=== PATIENT | male | born 1950 | race Caucasian/White ===

== ENCOUNTER 2023-08-07 08:06 | Outpatient (OUT) | payer MEDICARE, SELFPAY ==
[2023-08-07 08:52] LABS: Estimated Average Glucose 166 mg/dL; Glycohemoglobin A1C 7.4 % (4.5-6.2)
[2023-08-07 09:02] LABS: Basophils Absolute Auto 0.1 10^3/uL (0.0-0.1); Basophils Percent Auto 1.2 % (0.2-2.0); Eosinophils Absolute Auto 0.2 10^3/uL (0.0-0.7); Eosinophils Percent Auto 3.2 % (0.9-7.0); Hematocrit 44.9 % (42.0-54.0); Hemoglobin 14.8 g/dL (14.0-18.0); Immature Granulocytes Abs Auto 0.02 10^3/uL (0.00-0.03); Immature Granulocytes Pct Auto 0.3 % (0.0-0.5); Lymphocytes Absolute Auto 2.1 10^3/uL (1.2-3.8); Lymphocytes Percent Auto 31.4 % (20.5-60.0); Mean Corpuscular Hemoglobin 29.7 pg (25.9-34.0); Mean Platelet Volume 10.1 fL (9.5-13.5); Monocytes Absolute Auto 0.7 10^3/uL (0.3-0.8); Monocytes Percent Auto 10.6 % (1.7-12.0); Neutrophils Absolute Auto 3.5 10^3/uL (1.4-6.5); Neutrophils Percent Auto 53.3 % (43.0-75.0); Platelet Count 254 10^3/uL (150-450); Red Blood Count 4.99 10^6/uL (4.70-6.10); Red Cell Distribution Width 13.8 % (11.0-15.0); White Blood Count 6.5 10^3/uL (4.0-11.0)
[2023-08-07 09:48] LABS: Alanine Aminotransferase 30 U/L (16-63); Albumin Level 3.7 g/dL (3.4-5.0); Alkaline Phosphatase 80 U/L (46-116); Anion Gap 12.9; Aspartate Amino Transferase 8 U/L (15-37); BUN Creatinine Ratio 19.8; Bilirubin Total 0.5 mg/dL (0.2-1.0); Calcium 8.8 mg/dL (8.5-10.1); Carbon Dioxide 28.2 mmol/L (21.0-32.0); Chloride 102 mmol/L (98-107); Chol HDL Ratio 5.3; Cholesterol 217 mg/dL (<=200); Estimated GFR (African America >60 (>=60); Estimated GFR (Non-African Ame >60 (>=60); Free T3 2.98 pg/mL (2.18-3.98); Globulin 3.8 g/dL; Glucose 157 mg/dL (74-106); HDL Cholesterol 41 mg/dL (40-60); Potassium 4.1 mmol/L (3.5-5.1); Prostate Specific Antigen Scrn 0.79 ng/mL (<=4.00); Sodium 139 mmol/L (136-145); Thyroid Stimulating Hormone 1.725 uIU/mL (0.358-3.740); Total Protein 7.5 g/dL (6.4-8.2); Triglycerides 389 mg/dL (<=150); VLDL CHOLESTEROL 77.8 mg/dL
== END 2023-08-07 08:07 | disposition home or self-care (01) ==
LOC: LAB 08:10
PROVIDERS: PCP Family Medicine; Visit Provider Family Medicine
DX: E78.1 Pure hyperglyceridemia (principal); E11.9 Type 2 diabetes mellitus without complications; I10 Essential (primary) hypertension; R53.83 Other fatigue
CPT/HCPCS: 36415; 80053; 80061; 83036; 84436; 84443; 84481; 85025; G0103

== ENCOUNTER 2024-08-31 08:27 | Outpatient (OUT) | payer OTHER, SELFPAY ==
[2024-08-31 09:13] LABS: Basophils Absolute Auto 0.1 10^3/uL (0.0-0.1); Eosinophils Absolute Auto 0.1 10^3/uL (0.0-0.7); Eosinophils Percent Auto 2.1 % (0.9-7.0); Hematocrit 44.9 % (42.0-54.0); Immature Granulocytes Abs Auto 0.03 10^3/uL (0.00-0.03); Immature Granulocytes Pct Auto 0.5 % (0.0-0.5); Lymphocytes Absolute Auto 1.6 10^3/uL (1.2-3.8); Lymphocytes Percent Auto 24.8 % (20.5-60.0); Mean Corpuscular HGB Conc 33.4 g/dL (29.9-35.2); Mean Corpuscular Hemoglobin 29.8 pg (25.9-34.0); Mean Corpuscular Volume 89.1 fL (80.0-94.0); Mean Platelet Volume 10.1 fL (9.5-13.5); Monocytes Absolute Auto 0.6 10^3/uL (0.3-0.8); Monocytes Percent Auto 9.9 % (1.7-12.0); Neutrophils Absolute Auto 3.9 10^3/uL (1.4-6.5); Neutrophils Percent Auto 61.7 % (43.0-75.0); Platelet Count 258 10^3/uL (150-450); Red Blood Count 5.04 10^6/uL (4.70-6.10); Red Cell Distribution Width 13.3 % (11.0-15.0); White Blood Count 6.3 10^3/uL (4.0-11.0)
[2024-08-31 09:53] LABS: Alanine Aminotransferase 24 U/L (16-63); Albumin Globulin Ratio 0.9; Albumin Level 3.4 g/dL (3.4-5.0); Alkaline Phosphatase 84 U/L (46-116); Anion Gap 13.8; Aspartate Amino Transferase 11 U/L (15-37); BUN Creatinine Ratio 15.5; Bilirubin Total 0.5 mg/dL (0.2-1.0); Calcium 8.9 mg/dL (8.5-10.1); Carbon Dioxide 27.5 mmol/L (21.0-32.0); Chloride 103 mmol/L (98-107); Cholesterol 222 mg/dL (<=200); Estimated GFR (African America >60 (>=60 mL/min/1.73m^2); Estimated GFR (Non-African Ame >60 (>=60 mL/min/1.73m^2); Free T3 2.22 pg/mL (2.18-3.98); Globulin 3.7 g/dL; Glucose 190 mg/dL (74-106); HDL Cholesterol 44 mg/dL (40-60); Potassium 4.3 mmol/L (3.5-5.1); Sodium 140 mmol/L (136-145); Thyroid Stimulating Hormone 2.284 uIU/mL (0.358-3.740); Total Protein 7.1 g/dL (6.4-8.2); Triglycerides 345 mg/dL (<=150)
[2024-08-31 09:59] LABS: Prostate Specific Antigen Scrn 0.56 ng/mL (<=4.00)
[2024-08-31 11:13] LABS: Estimated Average Glucose 203 mg/dL; Glycohemoglobin A1C 8.7 % (4.5-6.2)
== END 2024-08-31 08:28 | disposition home or self-care (01) ==
LOC: LAB 08:31
PROVIDERS: PCP Family Medicine; Visit Provider Family Medicine
DX: E78.1 Pure hyperglyceridemia (principal); I10 Essential (primary) hypertension; K21.9 Gastro-esophageal reflux disease without esophagitis; E11.9 Type 2 diabetes mellitus without complications; E78.5 Hyperlipidemia, unspecified; Z12.12 Encounter for screening for malignant neoplasm of rectum; Z12.5 Encounter for screening for malignant neoplasm of prostate
CPT/HCPCS: 36415; 80053; 80061; 83036; 84436; 84443; 84481; 85025; G0103

== ENCOUNTER 2025-07-13 07:34 | Outpatient (OUT) | payer OTHER, SELFPAY ==
--- OUTSIDE RECORDS SUMMARY | 2025-07-13 07:41 | XMS_ITS | CCD ---
Author Organization [facility] Care Team Providers Care Director Motion Picture Name Role Phone Fernie Velez Primary Care Physician Eric SOLIS Attending Unavailable NILL, Eric Mcfadden Attending Unavailable NILL, Eric Mcfadden Attending Unavailable Fernie Velez Referring Unavailable Eric SOLIS Attending Unavailable NATEY ., DR ENCISO Primary Care Unavailable DIAB ., KAYLI Admitting Unavailable DIAB ., KAYLI Attending Unavailable ROCK RAMESH Consulting Unavailable BARRINGTON HENDERSON Consulting Unavailable HOY ., DR ENCISO Admitting Unavailable HOY ., DR ENCISO Attending Unavailable HOY ., DR ENCISO Consulting Unavailable HOY ., DR ENCISO Admitting Unavailable HOY ., DR ENCISO Attending Unavailable HOY ., DR ENCISO Consulting Unavailable Allergies Allergy Classification Reported Allergen(s) Allergy Type Date of Onset Reaction(s) Facility (1 source) No Known Medication Allergies; Translations: [No Known Medication Allergies] Propensity to adverse reactions (disorder) [facility] Repository Medications Current Medications Medication Drug Class(es) Dates Sig (Normalized) Sig (Original) aspirin 81 mg chewable tablet (3 sources) Platelet Aggregation Inhibitor, Nonsteroidal Anti-inflammatory Drug Start: 11-09-2022 aspirin 81 mg Chew Tab 81 mg = 1 tab(s), Chewed, Daily, Refills(s) 0 Start Date: 11/09/22 Status: Ordered colesevelam hydrochloride 625 mg oral tablet (3 sources) Bile Acid Sequestrant Start: 11-09-2022 take 1 tablet by mouth four times daily Welchol 625 mg Tab 625 mg = 1 tab(s), Oral, QID, Refills(s) 0 Start Date: 11/09/22 Status: Ordered dapagliflozin 5 mg oral tablet (3 sources) Sodium-Glucose Cotransporter 2 Inhibitor Start: 11-09-2022 take 1 tablet by mouth once daily Farxiga 5 mg oral tablet 5 mg = 1 tab(s), Oral, Daily, Refills(s) 0 Start Date: 11/09/22 Status: Ordered glimepiride 4 mg oral tablet (3 sources) Sulfonylurea Start: 11-09-2022 take 1 tablet by mouth once daily glimepiride 4 mg Tab 4 mg = 1 tab(s), Oral, Daily, Refills(s) 0 Start Date: 11/09/22 Status: Ordered irbesartan 300 mg oral tablet (3 sources) Angiotensin 2 Receptor Hawk Start: 11-09-2022 take 1 tablet by mouth once daily irbesartan 300 mg Tab 300 mg = 1 tab(s), Oral, Daily, Refills(s) 0 Start Date: 11/09/22 Status: Ordered metFORMIN hydrochloride 500 mg oral tablet (3 sources) Biguanide Start: 11-09-2022 take 2 tablets by mouth twice daily metformin 500 mg Tab 1,000 mg = 2 tab(s), Oral, BID, Refills(s) 0 Start Date: 11/09/22 Status: Ordered sildenafil 100 mg oral tablet (3 sources) Phosphodiesterase 5 Inhibitor Start: 11-09-2022 take 1 tablet by mouth once daily as needed sildenafil 100 mg Tab 100 mg = 1 tab(s), Oral, Daily, PRN erectile dysfunction, Refills(s) 0 Start Date: 11/09/22 Status: Ordered Problems Active Problems Problem Classification Problem Date Documented Da te Episodic/Chronic Abdominal hernia (1 source) Diaphragmatic hernia without obstruction or gangrene; Translations: [DIAPH HERNIA W/O OBST/GANGRENE] Onset: 12-31-2022 Episodic Abdominal pain (4 sources) Unspecified abdominal pain; Translations: [UNSPECIFIED ABDOMINAL PAIN] Onset: 12-27-2022 Episodic Diabetes mellitus without complication (7 sources) Diabetes mellitus; Translations: [Type 2 diabetes mellitus without complications] Onset: 08-04-2022 11-09-2022 Chronic Disorders of lipid metabolism (4 sources) Hypertriglyceridemi a; Translations: [Hyperlipidemia, unspecified] Onset: 08-09-2022 11-09-2022 Chronic Essential hypertension (7 sources) Essential hypertension; Translations: [Hypertensive disorder] Onset: 08-09-2022 11-09-2022 Chronic Nausea and vomiting (1 source) Nausea with vomiting, unspecified; Translations: [NAUSEA WITH VOMITING UNSPECIFIED] Onset: 12-31-2022 Episodic Neoplasms of unspecified nature or uncertain behavior (5 sources) Neoplasm of uncertain behavior of skin; Translations: [Neoplasm of uncertain behavior of skin] Onset: 11-16-2022 Episodic Other aftercare (1 source) 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; Translations: [OTH HALFWAY CURRENT DRUG THERAPY] Onset: 12-31-2022 Episodic Other aftercare (1 source) 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 drugs; Translations: [HALFWAY USE ORAL HYPOGLYCEMIC DX] Onset: 12-31-2022 Episodic Other gastrointestinal disorders (1 source) Diarrhea, unspecified; Translations: [DIARRHEA UNSPECIFIED] Onset: 12-31-2022 Episodic Other liver diseases (1 source) Fatty (change of) liver, not elsewhere classified; Translations: [FATTY CHANGE LIVER NEC] Onset: 12-31-2022 Chronic Other male genital disorders (1 source) Male erectile dysfunction, unspecified; Translations: [MALE ERECTILE DYSFUNCTION UNS] Onset: 08-09-2022 Chronic Other nutritional; endocrine; and metabolic disorders (3 sources) Body mass index 30+ - obesity 11-16-2022 Chronic Other upper respiratory infections (4 sources) Acute sinusitis, unspecified; Translations: [ACUTE SINUSITIS UNSPECIFIED] Onset: 10-31-2022 Episodic Residual codes; unclassified (3 sources) Insomnia 11-09-2022 Episodic Viral infection (1 source) COVID-19; Translations: [COVID-19] Onset: 11-01-2022 Past or Other Problems Problem Classification Problem Date Documented Da te Episodic/Chronic Diabetes mellitus without complication (1 source) Other abnormal glucose; Translations: [OTHER ABNORMAL GLUCOSE] Onset: 08-09-2022 Episodic Other screening for suspected conditions (not mental disorders or infectious disease) (2 sources) Encounter for screening for malignant neoplasm of prostate; Translations: [Encounter for screening for malignant neoplasm of rectum] Onset: 08-09-2022 Episodic Results Test Name Value Interpretation Reference Range Facility CBC AUTO DIFFon 12-27-2022 BASO # 0.1 103/ul Normal 0.0-0.1 [facility] Comment on above: Performed By: #### C BC #### [facility] [address] [place] [address] Dr. April Woods Basophils/100 WBC (Bld) 0.8 % Normal 0.2-2.0 [facility] Comment on above: Performed By: #### C BC #### [facility] [address] [place] [address] Dr. April Woods EO # 0.1 103/ul Normal 0.0-0.7 [facility] Comment on above: Performed By: #### C BC #### [facility] [address] [place] [address] Dr. April Woods Eosinophils/100 WBC (Bld) 0.6 % Critically low 0.9-7.0 [facility] Comment on above: Performed By: #### C BC #### [facility] [address] [place] [address] Dr. April Woods Erythrocyte distribution width (RBC) [Ratio] 14.4 % Normal 11.0-15.0 [facility] Comment on above: Performed By: #### C BC #### [facility] [address] [place] [address] Dr. April Woods Hematocrit (Bld) [Volume fraction] 47.1 % Normal 42.0-54.0 [facility] Comment on above: Performed By: #### C BC #### [facility] [address] [place] [address] Dr. April Woods Hemoglobin (Bld) [Mass/Vol] 15.8 g/dL Normal 14.0-18.0 [facility] Comment on above: Performed By: #### C BC #### [facility] [address] [place] [address] Dr. April Woods IG # 0.05 10e3/ul Critically high 0.00-0.03 [facility] Comment on above: Performed By: #### C BC #### [facility] [address] [place] [address] Dr. April Woods IG % 0.4 % Normal 0.0-0.5 [facility] Comment on above: Performed By: #### C BC #### [facility] [address] [place] [address] Dr. April Woods LYMPH # 1.1 103/ul Critically low 1.2-3.8 [facility] Comment on above: Performed By: #### C BC #### [facility] [address] [place] [address] Dr. April Woods Lymphocytes/100 WBC (Bld) 8.3 % Critically low 20.5-60.0 [facility] Comment on above: Performed By: #### C BC #### [facility] [address] [place] [address] Dr. April Woods MANUAL DIFF REQ NO Normal [facility] Comment on above: Performed By: #### C BC #### [facility] [address] [place] [address] Dr. April Woods MCH (RBC) [Entitic mass] 30.0 pg Normal 25.9-34.0 [facility] Comment on above: Performed By: #### C BC #### [facility] [address] [place] [address] Dr. April Woods MCHC (RBC) [Mass/Vol] 33.5 g/dL Normal 29.9-35.2 [facility] Comment on above: Performed By: #### C BC #### [facility] [address] [place] [address] Dr. April Woods MCV (RBC) [Entitic vol] 89.5 fL Normal 80.0-94.0 [facility] Comment on above: Performed By: #### C BC #### [facility] [address] [place] [address] Dr. April Woods MONO # 0.8 103/ul Normal 0.3-0.8 [facility] Comment on above: Performed By: #### C BC #### [facility] [address] [place] [address] Dr. April Woods Monocytes/100 WBC (Bld) 5.9 % Normal 1.7-12.0 [facility] Comment on above: Performed By: #### C BC #### [facility] [address] [place] [address] Dr. April Woods NEUT # 11.1 103/ul Critically high 1.4-6.5 [facility] Comment on above: Performed By: #### C BC #### [facility] [address] [address] [address] April Woods Neutrophils/100 WBC (Bld) 84.0 % Critically high 43.0-75.0 [facility] Comment on above: Performed By: #### C BC #### [facility] [address] [address] [address] April Woods Platelet mean volume (Bld) [Entitic vol] 9.8 fL Normal 9.5-13.5 [facility] Comment on above: Performed By: #### C BC #### [facility] [address] [address] [address] April Woods PLT 277 103/ul Normal 150-450 [facility] Comment on above: Performed By: #### C BC #### [facility] [address] [place] [address] Dr. April Woods RBC 5.26 106/ul Normal 4.70-6.10 [facility] Comment on above: Performed By: #### C BC #### [facility] [address] [id number] April Woods WBC 13.2 103/ul Critically high 4.0-11.0 [facility] Comment on above: Performed By: #### C BC #### [facility] [address] [place], [place] [id number] Dr. April Woods CT ABD/PELV W CONon 12-28-[address] ABD/PELV W CON EXAM: CT ABD/PELV W CON HISTORY: UNSPECIFIED ABDOMINAL PAIN COMPARISON: None. TECHNIQUE: Axial CT imaging was performed through the abdomen and pelvis with intravenous contrast. Multiplanar reformats were performed. Dose reduction techniques were achieved by using automated exposure control and/or adjustment of mA and/or kV according to patient size and/or use of iterative reconstruction technique. FINDINGS: Lung bases: Lung bases are clear. No pleural effusion. GI upper: Small hiatal hernia. Liver: Hepatic steatosis. Normal size and contour. Gallbladder: No significant abnormality. No cholelithiasis. Biliary system: No intra or extrahepatic biliary ductal dilatation. Spleen: Normal size. Pancreas: Unremarkable. Adrenal glands: Normal adrenal glands. Kidneys/ureters: Normal contours. No hydronephrosis. No nephrolithiasis or ureterolithiasis. Vessels: No aneurysm. Lymph Nodes: No lymphadenopathy. Small bowel: No wall thickening or dilatation. Colon: No wall thickening or dilatation. Appendix: No findings of appendicitis. Peritoneal cavity: No free fluid or pneumoperitoneum. Lower : Unremarkable. Bones: No acute bony abnormality. Soft tissues: No acute finding. Additional findings: None. IMPRESSION: Small hiatal hernia. Hepatic steatosis. No acute abnormality. Electronically authenticated by: BARRINGTON HENDERSON Date: 2022-12-27 15:47 Normal [facility] LIPASEon 12-27-2022 Lipase [Catalytic activity/Vol] 461.0 U/L Critically high 73.0-393.0 [facility] Comment on above: Performed By: #### C MP, LIPA #### [facility] [address] [place] [address] Dr. April Woods PROF 14(COMP METB)on 023 Albumin [Mass/Vol] 4.1 g/dL Normal 3.4-5.[address] [facility] Comment on above: Performed By: #### C SHAJI, LIPA #### [facility] [address] [place] [address] Dr. April Woods Albumin/Globulin [Mass ratio] 1.1 {ratio} Normal [facility] Comment on above: Performed By: #### C MP, LIPA #### [facility] [address] [place] [address] Dr. April Woods ALP [Catalytic activity/Vol] 88 U/L Normal 46-116 [facility] Comment on above: Performed By: #### C MP, LIPA #### [facility] [address] [place] [address] Dr. April Woods ALT [Catalytic activity/Vol] 36 U/L Normal 16-63 [facility] Comment on above: Performed By: #### C MP, LIPA #### [facility] [address] [place] [address] Dr. April Woods Anion gap [Moles/Vol] 13.8 mmol/L Normal [facility] Comment on above: Performed By: #### C MP, LIPA #### [facility] [address] [address] [address] April Woods AST [Catalytic activity/Vol] 18 U/L Normal 15-37 [facility] Comment on above: Performed By: #### C MP, LIPA #### [facility] [address] [place] [address] Dr. April Woods Bilirubin [Mass/Vol] 0.4 mg/dL Normal 0.2-1.0 [facility] Comment on above: Performed By: #### C MP, LIPA #### [facility] [address] [place] [address] Dr. April Woods Calcium [Mass/Vol] 8.8 mg/dL Normal 8.5-10.[address] [facility] Comment on above: Performed By: #### C MP, LIPA #### [facility] [address] [place] [address] Dr. April Woods Chloride [Moles/Vol] 103 mmol/L Normal 98-107 [facility] Comment on above: Performed By: #### C MP, LIPA #### [facility] [address] [place] [address] Dr. April Woods CO2 [Moles/Vol] 26.6 mmol/L Normal 21.0-32.0 [facility] Comment on above: Performed By: #### C MP, LIPA #### [facility] [address] [place] [address] Dr. April Woods Creatinine [Mass/Vol] 0.84 mg/dL Normal 0.70-1.30 [facility] Comment on above: Performed By: #### C MP, LIPA #### [facility] [address] [place] [address] Dr. April Woods EGFR-AF SRI LANKAN >60 Normal >=60 [facility] Comment on above: Performed By: #### C MP, LIPA #### [facility] [address] [place] [address] Dr. April Woods EGFR-NON AF SRI LANKAN >60 Normal >=60 [facility] Comment on above: Performed By: #### C MP, LIPA #### [facility] [address] [place] [address] Dr. April Woods Globulin (S) [Mass/Vol] 3.7 g/dL Normal [facility] Comment on above: Performed By: #### C MP, LIPA #### [facility] [address] [place] [address] Dr. April Woods Glucose [Mass/Vol] 175 mg/dL Critically high 74-106 [facility] Comment on above: Performed By: #### C MP, LIPA #### [facility] [address] [place] [address] Dr. April Woods Potassium [Moles/Vol] 4.4 mmol/L Normal 3.5-5.1 [facility] Comment on above: Performed By: #### C MP, LIPA #### [facility] [address] [place] [address] Dr. April Woods Protein [Mass/Vol] 7.8 g/dL Normal 6.4-8.2 [facility] Comment on above: Performed By: #### C MP, LIPA #### [facility] [address] [place] [address] Dr. April Woods Sodium [Moles/Vol] 139 mmol/L Normal 136-[address] [facility] Comment on above: Performed By: #### C MP, LIPA #### [facility] [address] [place] [address] Dr. April Woods Urea nitrogen [Mass/Vol] 24.0 mg/dL Critically high 7.0-18.0 [facility] Comment on above: Performed By: #### C MP, LIPA #### [facility] [address] [place] [address] Dr. April Woods Urea nitrogen/Creatinine [Mass ratio] 28.6 mg/mg Normal [facility] Comment on above: Performed By: #### C MP, LIPA #### [facility] [address] [place] [address] Dr. April Woods Pathology Noteon 12-13-2022 Pathology Note [id number]. 00CD:[address] [facility] Ambulatory Visit Summaryon 0 12-11-2022 Ambulatory Visit Summary MARIANA MCCURDY :1950 Visit Date:12/11/2022 Ambulatory Visit Instructions Your Care Team Attending Physician - Eric SOLIS MD Primary Care Physician - Fernie Velez MD This Is Your Medications List aspirin (aspirin 81 mg Chew Tab) colesevelam (Welchol 625 mg Tab) dapagliflozin (Farxiga 5 mg oral tablet) glimepiride (glimepiride 4 mg Tab) irbesartan (irbesartan 300 mg Tab) metformin (metformin 500 mg Tab) sildenafil (sildenafil 100 mg Tab) Procedures Performed Repair of left inguinal hernia. Medications What How Much When Instructions Unchanged aspirin (aspirin 81 mg Chew Tab) 1 Tablets Chewed Every day Unchanged colesevelam (Welchol 625 mg Tab) 1 Tablets By Mouth 4 times a day Unchanged dapagliflozin (Farxiga 5 mg oral tablet) 1 Tablets By Mouth Every day Unchanged glimepiride (glimepiride 4 mg Tab) 1 Tablets By Mouth Every day Unchanged irbesartan (irbesartan 300 mg Tab) 1 Tablets By Mouth Every day Unchanged metformin (metformin 500 mg Tab) 2 Tablets By Mouth 2 times a day Unchanged sildenafil (sildenafil 100 mg Tab) 1 Tablets By Mouth Every day as needed for erectile dysfunction Allergies No Known Allergies No Known Medication Allergies Problems Ongoing - Any problem that you are currently receiving treatment for. BMI 38.0-38.9,adult Diabetes Essential hypertension HTN (hypertension) Hypertriglyceridemia Insomnia Neoplasm of uncertain behavior of skin of face Normal [facility] General Surgery Office/Clini c Noteon 12-11-2022 General Surgery Office/Clinic Note Chief Complaint follow up in-office excisional biopsy HPI Staff 7 day post in-office excisional biopsy right cheek. History of Present Illness 1 week s/p excisional biopsy enlarging keratotic lesion of right cheek; doing well; denies pain or drainage; no bruising; pathology pending. Review of Systems ROS - Provider Constitutional: no fever, no sweats, no weight loss. Eyes: no glasses, no blurred vision, no visual loss. ENMT: no dentures, no hoarseness, no swallowing difficulties, no hearing loss, no ear infection(s), no nose bleeds. Cardiovascular: normal blood pressure, no chest pain, regular heartbeat, no heart murmur. Respiratory: no shortness of breath, no cough, no asthma, no wheezing. Gastrointestinal: no nausea, no vomiting, no diarrhea, no constipation, no blood in stool, no change in bowel habits, no abdominal pain, no hepatitis. Genitourinary: no kidney stones, no urine infection, no dysuria. Musculoskeletal: no pain, no weakness. Skin: no changing moles, no rash, no skin lumps. Neurologic: no seizures, no epilepsy, no headache. Psychiatric: no emotional or psychiatric problem. Heme/Lymph: no bleeding problems, no anemia, no blood clots, no transfusions. Allergy/Immunologic: no swollen lymph nodes/glands, no IV drug abuse. Other: Additional ROS info: Except as noted in the above Review of Systems and in the History of Present Illness, all other systems have been reviewed and are negative or noncontributory. Physical Exam skin: incision healing well, no erythema or drainage, no ecchymoses Assessment/Plan 1. Neoplasm of uncertain behavior of skin of face (D48.5: Neoplasm of uncertain behavior of skin) doing well, sutures removed; will call patient with pathology results; call with problems/questions. Follow-up No qualifying data available Problem List/Past Medical History Ongoing BMI 38.0-38.9,adult Diabetes Essential hypertension HTN (hypertension) Hypertriglyceridemia Insomnia Neoplasm of uncertain behavior of skin of face Historical No qualifying data Procedure/Surgical History Repair of left inguinal hernia. Medications aspirin 81 mg Chew Tab, 81 mg= 1 tab(s), Chewed, Daily Farxiga 5 mg oral tablet, 5 mg= 1 tab(s), Oral, Daily glimepiride 4 mg Tab, 4 mg= 1 tab(s), Oral, Daily irbesartan 300 mg Tab, 300 mg= 1 tab(s), Oral, Daily metformin 500 mg Tab, 1000 mg= 2 tab(s), Oral, BID sildenafil 100 mg Tab, 100 mg= 1 tab(s), Oral, Daily, PRN Welchol 625 mg Tab, 625 mg= 1 tab(s), Oral, QID Allergies No Known Allergies No Known Medication Allergies Social History Alcohol - Denies Alcohol Use, 11/16/2022 Substance Abuse - Denies Substance Abuse, 11/16/2022 Tobacco Never (less than 100 in lifetime) Tobacco Use:. Never Smokeless Tobacco Use:., 11/16/2022 Family History Heart disease: Father and Brother. Immunizations Vaccine Date Status Comments influenza virus vaccine, inactivated 07/19/2022 Recorded SARS-CoV-2 (COVID-19) mRNA-1273 vaccine 08/10/2021 Recorded 2022-11-09: [id number] SARS-CoV-2 (COVID-19) mRNA-1273 vaccine 12/21/2020 Recorded SARS-CoV-2 (COVID-19) mRNA-1273 vaccine 11/24/[address] [facility] Comment on above: Result Comment: Elec tronically Signed By: GERALD CANELA, Eric [email or web address]\Date and Time Signed: 12/11/22 15:30 EDT Facesheeton 12-06-2022 Facesheet [id number] .[id number]:[address] [facility] General Surgery Office/Clini c Noteon 12-06-2022 General Surgery Office/Clinic Note Chief Complaint in-office excisional biopsy HPI Staff Presents for in-office excisional biopsy right cheek. History of Present Illness patient here for excisional biopsy keratotic lesion right cheek; no change since recent evaluation. Review of Systems ROS - Provider Constitutional: no fever, no sweats, no weight loss. Eyes: no glasses, no blurred vision, no visual loss. ENMT: no dentures, no hoarseness, no swallowing difficulties, no hearing loss, no ear infection(s), no nose bleeds. Cardiovascular: normal blood pressure, no chest pain, regular heartbeat, no heart murmur. Respiratory: no shortness of breath, no cough, no asthma, no wheezing. Gastrointestinal: no nausea, no vomiting, no diarrhea, no constipation, no blood in stool, no change in bowel habits, no abdominal pain, no hepatitis. Genitourinary: no kidney stones, no urine infection, no dysuria. Musculoskeletal: no pain, no weakness. Skin: no changing moles, no rash, yes skin lumps. Neurologic: no seizures, no epilepsy, no headache. Psychiatric: no emotional or psychiatric problem. Heme/Lymph: no bleeding problems, no anemia, no blood clots, no transfusions. Allergy/Immunologic: no swollen lymph nodes/glands, no IV drug abuse. Other: Additional ROS info: Except as noted in the above Review of Systems and in the History of Present Illness, all other systems have been reviewed and are negative or noncontributory. Physical Exam skin: 4 mm raised keratotic lesion right cheek Assessment/Plan 1. Neoplasm of uncertain behavior of skin of face (D48.5: Neoplasm of uncertain behavior of skin) lesion excised under local anesthesia, tolerated well; f/u in 1 week for suture removal; call sooner if problems/questions. Follow-up No qualifying data available Problem List/Past Medical History Ongoing BMI 38.0-38.9,adult Diabetes Essential hypertension HTN (hypertension) Hypertriglyceridemia Insomnia Neoplasm of uncertain behavior of skin of face Historical No qualifying data Procedure/Surgical History Repair of left inguinal hernia. Medications aspirin 81 mg Chew Tab, 81 mg= 1 tab(s), Chewed, Daily Farxiga 5 mg oral tablet, 5 mg= 1 tab(s), Oral, Daily glimepiride 4 mg Tab, 4 mg= 1 tab(s), Oral, Daily irbesartan 300 mg Tab, 300 mg= 1 tab(s), Oral, Daily metformin 500 mg Tab, 1000 mg= 2 tab(s), Oral, BID sildenafil 100 mg Tab, 100 mg= 1 tab(s), Oral, Daily, PRN Welchol 625 mg Tab, 625 mg= 1 tab(s), Oral, QID Allergies No Known Allergies No Known Medication Allergies Social History Alcohol - Denies Alcohol Use, 11/16/2022 Substance Abuse - Denies Substance Abuse, 11/16/2022 Tobacco Never (less than 100 in lifetime) Tobacco Use:. Never Smokeless Tobacco Use:., 11/16/2022 Family History Heart disease: Father and Brother. Immunizations Vaccine Date Status Comments influenza virus vaccine, inactivated 07/19/2022 Recorded SARS-CoV-2 (COVID-19) mRNA-1273 vaccine 08/10/2021 Recorded 2022-11-09: [id number] SARS-CoV-2 (COVID-19) mRNA-1273 vaccine 12/21/2020 Recorded SARS-CoV-2 (COVID-19) mRNA-1273 vaccine 11/24/2020 Recorded right cheek prepped and draped; area anesthetized with 0.5 % marcaine; excised down to subcutaneous fat, total length 5 mm; closed with interrupted 5-0 nylon sutures, ebl < 3 ml; tolerated well. [facility] Comment on above: Result Comment: Elec tronically Signed By: Eric SOLIS MD\.br\Date and Time Signed: 12/06/22 16:23 EST Ambulatory Visit Summaryon 0 12-04-2022 Ambulatory Visit Summary MARIANA MCCURDY :1950 Visit Date:12/04/2022 Ambulatory Visit Instructions Your Care Team Attending Physician - Eric SOLIS MD Primary Care Physician - Fernie Velez MD This Is Your Medications List aspirin (aspirin 81 mg Chew Tab) colesevelam (Welchol 625 mg Tab) dapagliflozin (Farxiga 5 mg oral tablet) glimepiride (glimepiride 4 mg Tab) irbesartan (irbesartan 300 mg Tab) metformin (metformin 500 mg Tab) sildenafil (sildenafil 100 mg Tab) Procedures Performed Repair of left inguinal hernia. What to do next Scheduled Follow-Up Appointments Saturday 2:00 PM EDT With: Eric SOLIS MD Where: General Surgery Gerald/Brenda Wan [facility] Ambulatory Visit Summaryon 0 11-16-2022 Ambulatory Visit Summary MARIANA MCCURDY :1950 Visit Date:11/16/2022 Ambulatory Visit Instructions Your Diagnosis Neoplasm of uncertain behavior of skin of face Your Care Team Attending Physician - Eric SOLIS MD Primary Care Physician - Fernie Velez MD This Is Your Medications List Contact prescribing physician if questions or concerns aspirin (aspirin 81 mg Chew Tab) colesevelam (Welchol 625 mg Tab) dapagliflozin (Farxiga 5 mg oral tablet) glimepiride (glimepiride 4 mg Tab) irbesartan (irbesartan 300 mg Tab) metformin (metformin 500 mg Tab) sildenafil (sildenafil 100 mg Tab) Procedures Performed Repair of left inguinal hernia. Discharge Vitals Heart Rate (Peripheral) 84 Respiratory Rate 16 Blood Pressure 151/94 Height 177.8 cm Height 70 in Weight 123.2 kg Weight 271.04 lb BMI 38.97 What to do next Scheduled Follow-Up Appointments Saturday 1:40 PM EST With: Eric SOLIS MD Where: General Surgery [place] [place] [facility] Physician Referralon 023 Physician Referral [phone] [id number] [facility] Covid-19 PCR (CVDTBH)on SARS-CoV-2 (COVID-19) RNA IRIS+probe Ql (Unsp spec) Detected Abnormal NOT DETECTED [facility] Comment on above: Result Comment: This test is not yet approved or cleared by the [place] FDA. When there are no FDA-approved or cleared tests available, and other criteria are met, FDA can make tests available under an emergency access mechanism called an Emergency Use Authorization (EUA). The EUA for this test is supported by the Risk Control Consultant of Health and Human Service's declaration that circumstances exist to justify the emergency use of in vitro diagnostics for the detection and/or diagnosis of the virus that causes COVID-19. This EUA will remain in effect for the duration of the COVID-19 declaration justifying emergency of IVDs, unless it is terminated or revoked by the FDA (after which the test may no longer be used). Performed By: #### C VDTBH ####[facility] [address] [address]Dr. April Woods INFLUENZA A AND B AGon 10-31 INFLUANEGH SEE BELOW Normal [facility] Comment on above: Result Comment: Nega tive for Flu A protein angiten. Infection due to Flu A cannot be ruled out. Flu A angiten in the sample may be below the detection limit of the test. Performed By: #### I NFLUAB ####[facility] [id number] [id number] Woods INFLUBNEGH SEE BELOW Normal [facility] Comment on above: Result Comment: Nega tive for Flu B protein antigen. Infection due to Flu B cannot be ruled out. Flu B antigen in the sample may be below the detection limit of the test. Performed By: #### I NFLUAB ####[facility] [address] [address]Dr. April Woods INFLUENZA A AG Negative Normal NEGATIVE SEE COMMENT [facility] Comment on above: Performed By: #### I NFLUAB ####[facility] [address] [address]Dr. April Woods INFLUENZA B AG Negative Normal NEGATIVE SEE COMMENT [facility] Comment on above: Performed By: #### I NFLUAB ####[facility] [address] [place], [place] [address]DrJannet Woods INSULINon 08-06-2022 Insulin 19.0 uIU/mL Normal 2.6-24.9 [facility] Comment on above: Performed By: #### I NSULIN #### [facility] [address] [place] [address] Dr. April Woods CBC AUTO DIFFon 08-04-2022 BASO # 0.1 103/ul Normal 0.0-0.1 [facility] Comment on above: Performed By: #### C BC #### [facility] [address] [place] [address] Dr. April Woods Basophils/100 WBC (Bld) 1.4 % Normal 0.2-2.0 [facility] Comment on above: Performed By: #### C BC #### [facility] [address] [place] [address] Dr. April Woods EO # 0.3 103/ul Normal 0.0-0.7 [facility] Comment on above: Performed By: #### C BC #### [facility] [address] [place] [address] Dr. April Woods Eosinophils/100 WBC (Bld) 3.8 % Normal 0.9-7.0 [facility] Comment on above: Performed By: #### C BC #### [facility] [address] [place] [address] Dr. April Woods Erythrocyte distribution width (RBC) [Ratio] 13.6 % Normal 11.0-15.0 [facility] Comment on above: Performed By: #### C BC #### [facility] [address] [place] [address] Dr. April Woods Hematocrit (Bld) [Volume fraction] 43.4 % Normal 42.0-54.0 [facility] Comment on above: Performed By: #### C BC #### [facility] [address] [place] [address] Dr. April Woods Hemoglobin (Bld) [Mass/Vol] 14.7 g/dL Normal 14.0-18.0 [facility] Comment on above: Performed By: #### C BC #### [facility] [address] [place] [address] Dr. April Woods IG # 0.02 10e3/ul Normal 0.00-0.03 [facility] Comment on above: Performed By: #### C BC #### [facility] [address] [place] [address] Dr. April Woods IG % 0.3 % Normal 0.0-0.5 [facility] Comment on above: Performed By: #### C BC #### [facility] [address] [place] [address] Dr. April Woods LYMPH # 2.3 103/ul Normal 1.2-3.8 [facility] Comment on above: Performed By: #### C BC #### [facility] [address] [place] [address] Dr. April Woods Lymphocytes/100 WBC (Bld) 34.3 % Normal 20.5-60.0 [facility] Comment on above: Performed By: #### C BC #### [facility] [address] [place] [address] Dr. April Woods MANUAL DIFF REQ NO Normal [facility] Comment on above: Performed By: #### C BC #### [facility] [address] [place] [address] Dr. April Woods MCH (RBC) [Entitic mass] 29.9 pg Normal 25.9-34.0 [facility] Comment on above: Performed By: #### C BC #### [facility] [address] [place] [address] Dr. April Woods MCHC (RBC) [Mass/Vol] 33.9 g/dL Normal 29.9-35.2 [facility] Comment on above: Performed By: #### C BC #### [facility] [address] [place] [address] Dr. April Woods MCV (RBC) [Entitic vol] 88.4 fL Normal 80.0-94.0 [facility] Comment on above: Performed By: #### C BC #### [facility] [address] [place] [address] Dr. April Woods MONO # 0.6 103/ul Normal 0.3-0.8 [facility] Comment on above: Performed By: #### C BC #### [facility] [address] [place] [address] Dr. April Woods Monocytes/100 WBC (Bld) 9.1 % Normal 1.7-12.0 [facility] Comment on above: Performed By: #### C BC #### [facility] [address] [place] [address] Dr. April Woods NEUT # 3.4 103/ul Normal 1.4-6.5 [facility] Comment on above: Performed By: #### C BC #### [facility] [address] [place] [address] Dr. April Woods Neutrophils/100 WBC (Bld) 51.1 % Normal 43.0-75.0 [facility] Comment on above: Performed By: #### C BC #### [facility] [address] [place] [address] Dr. April Woods Platelet mean volume (Bld) [Entitic vol] 9.3 fL Critically low 9.5-13.5 [facility] Comment on above: Performed By: #### C BC #### [facility] [address] [place] [address] Dr. April Woods PLT 270 103/ul Normal 150-450 [facility] Comment on above: Performed By: #### C BC #### [facility] [address] [address] [address] April Woods RBC 4.91 106/ul Normal 4.70-6.10 [facility] Comment on above: Performed By: #### C BC #### [facility] [address] [address] [address] April Woods WBC 6.6 103/ul Normal 4.0-11.0 [facility] Comment on above: Performed By: #### C BC #### [facility] [address] [place] [address] Dr. April Woods GLYCOHEMOGLOBIN A1Con 2021 ADA RECOMMENDATION SEE BELOW Normal [facility] Comment on above: Result Comment: ADA RECOMMENDED LIMIT 4.0 - 6.0 ADA THERAPEUTIC TARGET < 7.0 ACTION SUGGESTED > 7.0 Performed By: #### A 1C #### [facility] [address] [place] [address] Dr. April Woods Glucose [Mass/Vol] 134 mg/dL Normal [facility] Comment on above: Performed By: #### A 1C #### [facility] [address] [place] [address] Dr. April Woods HbA1c (Bld) [Mass fraction] 6.3 % Critically high 4.5-6.2 [facility] Comment on above: Performed By: #### A 1C #### [facility] [address] [place] [address] Dr. April Woods LIPID PROFILEon 08-04-2022 CHOL-HDL RATIO NORM SEE BELOW Normal [facility] Comment on above: Result Comment: 3.3 - 4.4 LOW RISK 4.4 - 7.1 AVERAGE RISK 7.1 - 11.0 MODERATE RISK >11.0 HIGH RISK Performed By: #### C MP, LIPID, URIC #### [facility] [address] [place] [address] Dr. April Woods Cholesterol [Mass/Vol] 167 mg/dL Normal <=200 [facility] Comment on above: Performed By: #### C MP, LIPID, URIC #### [facility] [address] [address] [address] April Woods Cholesterol in HDL [Mass/Vol] 36 mg/dL Critically low 40-60 [facility] Comment on above: Performed By: #### C MP, LIPID, URIC #### [facility] [address] [address] [address] April Woods Cholesterol in LDL [Mass/Vol] 97.0 mg/dL Normal [facility] Comment on above: Performed By: #### C MP, LIPID, URIC #### [facility] [address] [address] [address] April Woods Cholesterol.total/Cho lesterol in HDL [Mass ratio] 4.6 {ratio} Normal [facility] Comment on above: Performed By: #### C MP, LIPID, URIC #### [facility] [address] [address] [address] April Woods HDL NORMAL > or = 60 mg/dl - LO W CARDIOVASCULAR RISK <40 mg/dl - HIGH CARDIOVASCULAR RISK Normal [facility] Comment on above: Performed By: #### C MP, LIPID, URIC #### [facility] [address] [place] [address] Dr. April Woods LDL CALC NORMAL SEE BELOW Normal [facility] Comment on above: Result Comment: <100 mg/dl OPTIMAL 100 - 129 mg/dl NEAR OR ABOVE OPTIMAL 130 - 159 mg/dl BORDERLINE HIGH 160 - 189 mg/dl HIGH >190 mg/dl VERY HIGH Performed By: #### C MP, LIPID, URIC #### [facility] [address] [address] [address] April Woods Triglyceride [Mass/Vol] 170 mg/dL Critically high <=150 [facility] Comment on above: Performed By: #### C MP, LIPID, URIC #### [facility] [address] [place] [address] Dr. April Woods VLDL CALC 34.0 mg/dL Normal [facility] Comment on above: Performed By: #### C MP, LIPID, URIC #### [facility] [address] [address] [address] April Woods PROF 14(COMP METB)on 022 Albumin [Mass/Vol] 3.7 g/dL Normal 3.4-5.[address] [facility] Comment on above: Performed By: #### C MP, LIPID, URIC #### [facility] [address] [address] [address] April Woods Albumin/Globulin [Mass ratio] 0.9 {ratio} Normal [facility] Comment on above: Performed By: #### C MP, LIPID, URIC #### [facility] [address] [address] [address] April Woods ALP [Catalytic activity/Vol] 80 U/L Normal 46-116 [facility] Comment on above: Performed By: #### C MP, LIPID, URIC #### [facility] [address] [address] [address] April Woods ALT [Catalytic activity/Vol] 41 U/L Normal 16-63 [facility] Comment on above: Performed By: #### C MP, LIPID, URIC #### [facility] [address] [address] [address] April Woods Anion gap [Moles/Vol] 8.7 mmol/L Normal [facility] Comment on above: Performed By: #### C MP, LIPID, URIC #### [facility] [address] [address] [address] April Woods AST [Catalytic activity/Vol] 19 U/L Normal 15-37 [facility] Comment on above: Performed By: #### C MP, LIPID, URIC #### [facility] [address] [address] [address] April Woods Bilirubin [Mass/Vol] 0.4 mg/dL Normal 0.2-1.0 [facility] Comment on above: Performed By: #### C MP, LIPID, URIC #### [facility] [address] [address] [address] April Woods Calcium [Mass/Vol] 9.6 mg/dL Normal 8.5-10.1 [facility] Comment on above: Performed By: #### C MP, LIPID, URIC #### [facility] [address] [address] [address] April Woods Chloride [Moles/Vol] 101 mmol/L Normal 98-107 [facility] Comment on above: Performed By: #### C MP, LIPID, URIC #### [facility] [address] [address] [address] April Woods CO2 [Moles/Vol] 28.7 mmol/L Normal 21.0-32.0 [facility] Comment on above: Performed By: #### C MP, LIPID, URIC #### [facility] [address] [place] [address] Dr. April Woods Creatinine [Mass/Vol] 0.95 mg/dL Normal 0.70-1.30 [facility] Comment on above: Performed By: #### C MP, LIPID, URIC #### [facility] [address] [place] [address] Dr. April Woods EGFR-AF SRI LANKAN >60 Normal >=60 [facility] Comment on above: Performed By: #### C MP, LIPID, URIC #### [facility] [address] [place] [address] Dr. April Woods EGFR-NON AF SRI LANKAN >60 Normal >=60 [facility] Comment on above: Performed By: #### C MP, LIPID, URIC #### [facility] [address] [place] [address] Dr. April Woods Globulin (S) [Mass/Vol] 4.1 g/dL Normal [facility] Comment on above: Performed By: #### C MP, LIPID, URIC #### [facility] [address] [place] [address] Dr. April Woods Glucose [Mass/Vol] 144 mg/dL Critically high 74-106 T [facility] Comment on above: Performed By: #### C MP, LIPID, URIC #### [facility] [address] [place] [address] Dr. April Woods Potassium [Moles/Vol] 4.4 mmol/L Normal 3.5-5.1 [facility] Comment on above: Performed By: #### C MP, LIPID, URIC #### [facility] [address] [address] [address] April Woods Protein [Mass/Vol] 7.8 g/dL Normal 6.4-8.[address] [facility] Comment on above: Performed By: #### C MP, LIPID, URIC #### [facility] [address] [place] [address] Dr. April Woods Sodium [Moles/Vol] 134 mmol/L Critically low 136-145 Th [facility] Comment on above: Performed By: #### C MP, LIPID, URIC #### [facility] [address] [place] [address] Dr. April Woods Urea nitrogen [Mass/Vol] 21.0 mg/dL Critically high 7.0-18.0 [facility] Comment on above: Performed By: #### C MP, LIPID, URIC #### [facility] [address] [place] [address] Dr. April Woods Urea nitrogen/Creatinine [Mass ratio] 22.1 mg/mg Normal [facility] Comment on above: Performed By: #### C MP, LIPID, URIC #### [facility] [address] [place] [address] Dr. April Woods URIC ACID SERUMon 08-04-2022 Urate [Mass/Vol] 4.6 mg/dL Normal 3.5-7.2 [facility] Comment on above: Performed By: #### C MP, LIPID, URIC #### [facility] [address] [place] [address] Dr. April Woods Vital Signs Date Time Vital Sign Value Performing Clinician Ernesto garza 11-16-2022 08:49-0500 Blood Pressure Location Eric SOLIS [facility] [place] 11-16-2022 08:49-0500 Diastolic blood pressure 94 mm[Hg] Eric SOLIS [facility] [place] 11-16-2022 08:49-0500 Heart rate 84 /min Eric NILL [facility] 11-16-2022 08:49-0500 Respiratory rate 16 /min Eric NILL [facility] 11-16-2022 08:49-0500 Systolic blood pressure 151 mm[Hg] Eric NILL [facility] Encounters Encounter Date Encounter Type Care Provider Facility Start: 12-27-2022 End: 12-27-[address] FERNIE VELEZ . Facility:[facility] Start: 12-11-2022 End: 12-12-2022 ambulatory Eric R NILL Facility: [place] Start: 12-11-2022 End: 12-11-2022 Patient encounter procedure Eric R NILL [facility] [place] Start: 12-04-2022 End: 12-05-2022 ambulatory Eric R NILL Facility: [place] Start: 12-04-2022 End: 12-04-2022 Patient encounter procedure Eric R NILL [facility] [place] Start: 11-16-2022 End: 11-17-2022 ambulatory Eric R NILL Facility: [place] Start: 11-16-2022 End: 11-16-2022 Patient encounter procedure Eirc R NILL [facility] Start: 11-09-2022 ambulatory Eric R NILL Facility : [place] Start: 11-01-2022 ambulatory Eric NILL Facility: [facility] Start: 10-31-2022 End: 10-31-[address] FERNIE VELEZ . Facility:[facility] Start: 08-04-2022 End: 08-05-[address] FERNIE VELEZ . Facility:[facility] Procedures Date Procedure Procedure Detail Performing Clinician Start: 08-04-[address] MOLLY VELEZ . Comment on above: Performed By: #### P [facility] ####[facility] [address] [place], [place] [address]FaDr. April Woods Repair of left ingui nal hernia Eric JAYL Immunizations Immunization Date Immunization Notes Care Provider Fa cili 07-19-2022 influenza virus vaccine, unspecified formulation Eric NILL [facility] [place] 08-10-2021 SARS-CoV-2 (COVID-19 ) mRNA-1273 vaccine Eric NILL [facility] Comment on above: Result Comment: 2022: [id number] 12-21-2020 SARS-CoV-2 (COVID-19 ) mRNA-1273 vaccine Eric NILL [facility] 11-24-2020 SARS-CoV-2 (COVID-19 ) mRNA-1273 vaccine Eric JAYL [facility] Payers Date Payer Category Payer Medicare [id number] 1957 Unknown [id number] 1950 Unknown [id number] 2.16.8 [id number] 1950 Unknown [id number] 2.16.8 [id number] 1950 Unknown [id number] 2.16.8 [id number] 1950 Unknown [id number] 2.16.8 [id number] 1950 Unknown [id number] 2.16.84 [id number] 1950 Unknown [id number] 2.16.84 [id number] 1950 Unknown [id number] 2.16.84 [id number] Social History Date Type Detail Facility Start: 11-16-2022 Tobacco smoking status Never s moked tobacco (finding) [facility] [place] Tobacco smoking status Never Brandene [facility] [place] Sex Assigned At Male [facility] Functional Status Date Assessment Result Facility 11-16-2022 Functional Status N/A [facility] [place] Clinical Note 11-16-2022 Note Date & Type Note Facility 11-16-2022 Note Chief Complaint consultation for skin lesion HPI Staff 71 year old male presents on consultation from Dr. Velez for right face skin lesion. Reports small scaly lesion for several months. Small increase in size. Denies discomfort, bleeding or itching. History of Present Illness 71 yo male with h/o htn, DMII, hypertriglyceridemia, referred by Dr. Velez for skin lesion right cheek; present for several months, raised portion sloughs off, then grow back; no bleeding or pigmentation change; no personal or fmhx of h/o skin cancer; on baby asa, no NSAIDs; moderate sun exposure. no tobacco use. Review of Systems PHQ Score Initial Depression Screen Score: 0 ROS - Provider Constitutional: no fever, no sweats, no weight loss. Eyes: no glasses, no blurred vision, no visual loss. ENMT: no dentures, no hoarseness, no swallowing difficulties, no hearing loss, no ear infection(s), no nose bleeds. Cardiovascular: normal blood pressure, no chest pain, regular heartbeat, no heart murmur. Respiratory: no shortness of breath, no cough, no asthma, no wheezing. Gastrointestinal: no nausea, no vomiting, no diarrhea, no constipation, no blood in stool, no change in bowel habits, no abdominal pain, no hepatitis. Genitourinary: no kidney stones, no urine infection, no dysuria. Musculoskeletal: no pain, no weakness. Skin: no changing moles, no rash, no skin lumps. Neurologic: no seizures, no epilepsy, no headache. Psychiatric: no emotional or psychiatric problem. Heme/Lymph: no bleeding problems, no anemia, no blood clots, no transfusions. Allergy/Immunologic: no swollen lymph nodes/glands, no IV drug abuse. Other: Additional ROS info: Except as noted in the above Review of Systems and in the History of Present Illness, all other systems have been reviewed and are negative or noncontributory. Physical Exam Vitals & Measurements HR: 84(Peripheral) RR: 16 BP: 151/94 HT: 70 in HT: 177.8 cm WT: 123.2 kg WT: 271.04 lb BMI: 38.97 HEENT: normal conjunctiva, sclera clear, no scleral icterus, EOM intact, PERRLA, oral mucosa moist without lesions. Neck: trachea midline, no mass, symmetric, no thyromegaly or nodules, no adenopathy Respiratory: lungs CTA, respirations non labored. Cardiovascular: regular rate and rhythm, no murmur, no pedal edema or varicosities. Musculoskeletal: normal gait, digits and nails without infection, nodes, cyanosis, clubbing. Skin: no rashes, 4 mm lesion right cheek, irregular, raised keratotic central portion, no scab or ulceration, no pigmentation change; no ulcers, no subcutaneous nodules, induration. Psychiatric/Neuro: oriented to time, place, person, judgement normal, affect appropriate for age, insight intact, no focal deficits. Tests: review of old records completed, Discussed surgical options, risks, and possible complications with patient. Assessment/Plan 1. Neoplasm of uncertain behavior of skin of face (D48.5: Neoplasm of uncertain behavior of skin) plan excisional biopsy under local anesthesia in the office for definitive diagnosis and treatment; informed consent obtained. Follow-up No qualifying data available Problem List/Past Medical History Ongoing BMI 38.0-38.9,adult Diabetes Essential hypertension HTN (hypertension) Hypertriglyceridemia Insomnia Neoplasm of uncertain behavior of skin of face Historical No qualifying data Procedure/Surgical History Repair of left inguinal hernia. Medications aspirin 81 mg Chew Tab, 81 mg= 1 tab(s), Chewed, Daily Farxiga 5 mg oral tablet, 5 mg= 1 tab(s), Oral, Daily glimepiride 4 mg Tab, 4 mg= 1 tab(s), Oral, Daily irbesartan 300 mg Tab, 300 mg= 1 tab(s), Oral, Daily metformin 500 mg Tab, 1000 mg= 2 tab(s), Oral, BID sildenafil 100 mg Tab, 100 mg= 1 tab(s), Oral, Daily, PRN Welchol 625 mg Tab, 625 mg= 1 tab(s), Oral, QID Allergies No Known Allergies No Known Medication Allergies Social History Alcohol - Denies Alcohol Use, 11/16/2022 Substance Abuse - Denies Substance Abuse, 11/16/2022 Tobacco Never (less than 100 in lifetime) Tobacco Use:. Never Smokeless Tobacco Use:., 11/16/2022 Family History Heart disease: Father and Brother. Immunizations Vaccine Date Status Comments influenza virus vaccine, inactivated 07/19/2022 Recorded SARS-CoV-2 (COVID-19) mRNA-1273 vaccine 08/10/2021 Recorded 2022-11-09: [id number] SARS-CoV-2 (COVID-19) mRNA-1273 vaccine 12/21/2020 Recorded SARS-CoV-2 (COVID-19) mRNA-1273 vaccine 11/24/[address] [facility] Comment on above: Result Comment: Elec tronically Signed By: GERALD CANELA, Eric Mcfadden\.br\Date and Time Signed: 11/16/22 09:31 EST Evaluation + Plan note Note Date & Type Note Facility Evaluation + Plan note Future Appointments Appointment Date:12/04/2022 01:40:00 PM Scheduled Provider:Eric SOLIS MD Location:[facility] Appointment Type: Procedure 30 [facility] Evaluation + Plan note Note Date & Type Note Facility Evaluation + Plan note Future Appointments Appointment Date:12/11/2022 02:00:00 PM Scheduled Provider:Eric SOLIS MD Location:[facility] Appointment Type:GS Established 15 [facility] course Narrative Note Date & Type Note Facility Hospital course Narrative No data available for this section [facility] Discharge instructions Note Date & Type Note Facility Hospital Discharge instructions No data available for this section [facility] Progress note Note Date & Type Note Facility Progress note No data available for this section [facility] Summary Purpose Family History No Family History Records FoundNo Family History Records Found Advance Directives No Advanced Directives Records FoundNo Advanced Directives Records Found Additional Source Comments Patient Care team informatio n (unrecognized section and content) Personnel Name: Fernie Velez MD Address: Address: [address] [place] [address] Personnel Name: Fernie Velez MD Address: Address: [address] [place] [address] Personnel Name: Fernie Velez MD Address: Address: [address] [place] [address] (unrecognized sect ion and content) No Status Records FoundNo Status Records Found INFORMATION SOURCE (unrecogn ized section and content) DATE CREATED AUTHOR 12/14/[address] [facility] DATE CREATED AUTHOR AUTHOR'S ORGANIZ ATION 01/01/2023 [facility] FOR RECORDS PERTAINING TO PATIENTS WHO ARE OR HAVE BEEN ENROLLED IN A CHEMICAL DEPENDENCY/SUBSTANCEABUSE PROGRAM, SOME INFORMATION MAY BE OMITTED. This clinical summary was aggregated from multiple sources. Caution should be exercised in using it in the provision of clinical care. This summary normalizes information from multiple sources, and as a consequence, information in this document may materially change the coding, format and clinical context of patient data. In addition, data may be omitted in some cases. CLINICAL DECISIONS SHOULD BE BASED ON THE PRIMARY CLINICAL RECORDS. [employer] provides no warranty or guarantee of the accuracy or completeness of information in this document.
[2025-07-13 08:14] LABS: Estimated GFR (African America >60 (>=60 mL/min/1.73m^2); Estimated GFR (Non-African Ame >60 (>=60 mL/min/1.73m^2)
== END 2025-07-13 07:35 | disposition home or self-care (01) ==
LOC: LAB 07:40
PROVIDERS: PCP Family Medicine
DX: E11.69 Type 2 diabetes mellitus with other specified complication (principal)
CPT/HCPCS: 36415; 82043; 82565; 82570; 83036

== ENCOUNTER 2025-08-12 07:07 | Outpatient (OUT) | payer OTHER, SELFPAY ==
--- OUTSIDE RECORDS SUMMARY | 2024-11-19 04:15 | XMS_ITS ---
Author Organization [facility] in [place] Address [address] [place] [address] Care Team Providers Care Plaster Block Layer Name Role Phone Dante Garza Primary Care Provider [phone] REASON FOR VISIT 3mon Encounters Encounter Location Date Provider Diagnosis [facility] [address] [place] [address] 11/19/2024 Dnate Garza Plan Of Treatment Next Appt Details Provider Name:Dante Garza, 08:30:00 AM, [address] [place], [address], Progress Notes * Eber SPRINGER EDOB: [birth year] (74 yo M)Acc No.[id number]:11/19/2024 UNLOCKED PROGRESS NOTE Progress Note Patient: Michelle Eber JOYCE :?Malcom Garza ([facility]), MDDOB:1950???Age: 73 Y???Sex:MaleDate:11/19/2024Phone:[phone]:[address] [place] [address] [place], [id number] Subjective: * Chief Complaints: * 1 . 3mon. * Medical History: Objective: * Vitals: Assessment: Plan: * Treatment: * * Electronic signature of Dante Garza MD, [id number] on 08/12/2025 at 07:11 AM EST Sign off status: PendingVisit Status:?CANC (Cancelled) * Provider: Lorena Garza (TTC)MD Date: 0 11/19/2024 Generated for Printing/Faxing/eTransmitting on:?08/12/2025 07:11 AM EST
--- OUTSIDE RECORDS SUMMARY | 2025-08-05 04:30 | XMS_ITS ---
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 Name Role Phone Dante Garza Primary Care Provider [phone] Allergies Allergen (clinical drug ingredient) Drug/Non Drug Allergy documented on EMR Reaction Allergy Type Onset Date Status bees (uncoded)UnknownAllergyActive REASON FOR VISIT 3 mon, started Ozempic 15 weeks ago Medications Medication SIG (Take, Route, Frequency, Duration) Notes Start Date End Date Status Ketoconazole 2 % 1 application Externally Twice a day; Duration: 14 05/06/2023ctiveLancets 30G -as directedActivemetFORMIN HCl 500 MGTAKE 2 TABLETS BY MOUTH TWICE A DAY; Duration: 90ActiveOneTouch Verio -USE ONE STRIP DAILY TO MONITOR GLUCOSE; Duration: 90ActiveFreeStyle Lite Test -USE TO TEST BLOOD SUGAR ONCE DAILY DX E11.9; Duration: 90ActiveGlimepiride 4 MGTAKE 2 TABLETS BY MOUTH EVERY DAY; Duration: 90ActiveFarxiga 10 MGTAKE 1 TABLET BY MOUTH EVERY DAY; Duration: 90 daysActiveIrbesartan 300 MGTAKE 1 TABLET BY MOUTH EVERY DAY; Duration: 90ActiveJanuvia 100 MGTAKE 1 TABLET BY MOUTH EVERY DAY; Duration: 90 ActiveColesevelam HCl 625 MGTAKE 2 TABLETS BY MOUTH ONCE A DAY WITH A MEAL; Duration: 90ActiveOzempic (1 MG/DOSE) 4 MG/3ML1 mg Subcutaneous wrveen6908/05/2025 ActiveAspirin 81 81 MG1 tablet Orally Once a dayActiveBlood Glucose Monitor System w/Device test blood sugar daily; Duration: 365 days insurance covers one touch verio ActivePantoprazole Sodium 40 MGTAKE 1 TABLET BY MOUTH EVERY DAY IN THE EVENING; Duration: 30ActiveSildenafil Citrate 100 MGTAKE 1 TABLET BY MOUTH ONCE A DAY NEEDED; Duration: 30Active Social History Tobacco Use: Social History Observation Description Date Details (start date - stop date) Never Smoker NA - NA Tobacco Use/Smoking Question Answer Notes Patient is a nonsmoker Vital Signs Weight 261.8 lbs 08/05/2025 Height 70 in 08/05/2025 Blood pressure systolic 134 mm Hg 08/05/20 25 Blood pressure diastolic 82 mm Hg 025 BMI 37.56 kg/m2 08/05/2025 Encounters Encounter Location Date Provider Diagnosis [facility] [address] [place] [address] 08/05/2025 Dante Garza Insomnia G47.00 ; Hypertension I10 ; Diabetes mellitus type II, non insulin dependent E11.9 and Gastro-esophageal reflux disease without esophagitis K21.9 Assessments Encounter Date Diagnosis (ICD Code) Assessment Notes Treatment Notes Treatment Clinical Notes Section Notes 08/05/2025 Insomnia (ICD-10 - G47.00) 08/05/2025Hypertension (ICD-10 - I10)08/05/2025Diabetes mellitus type II, non insulin dependent (ICD-10 - E11.9)08/05/2025Gastro-esophageal reflux disease without esophagitis (ICD-10 - K21.9) Plan Of Treatment Medication Medication Name Sig Start Date Stop Date Notes Ozempic (0.25 or 0.5 MG/DOSE) 2 MG/3ML 0.5 mg Subcutan eous weekly 02/04/2025 Jardiance 10 MG1 tablet Orally Once a day07/13/2025Ozempic (1 MG/DOSE) 4 MG/3ML1 mg Subcutaneous xdhvsy2108/05/2025Pending Test Test Name Order Date HEMOGLOBIN A1C (GLYCO) 08/05/2025 LIPID PANEL (CHOL/TRIG/HDL/LDL) 08/05/20 25 STOOL OCCULT BLOOD 08/05/2025 THYROID PANEL (T4/TSH/FREE T3) PSA, SCREENING 08/05/2025 CMP (COMP MET PONCE) w/eGFR CKD-EPI 2024 CBC WITH DIFF 08/05/2025 Next Appt Details Provider Name:Dante Garza, 08:30:00 AM, [address] [facility], [place], [address], Progress Notes * Eber SPRINGER EDOB: [birth year] (74 yo M)Acc No.[id number]:08/05/2025 Progress Note Patient: Eber BRADLEY :?Malcom Garza ([facility]), MDDOB:1950???Age: 74 Y???Sex:MaleDate:08/05/2025Phone:[phone]:[address] [facility], [place]Gpved In:09:28 AM ESTCheck Out:10:07 AM EST Subjective: * Chief Complaints: * 3 monstarted Ozempic 15 weeks ago * HPI: ???General:? doing the ozempic -? disucssed DM - sugars still up at tiem - doing well with diet less active Blood pressure good gered - stabel on meds Left shoulder pain - nt realted to activity. * ROS: ???EENT:?hearing changes?denies.?visual changes?denies. non-healing mouth sores?denies.?swollen glands or neck lumps?denies.?hoarseness?denies.?sore throat?denies.?difficulty swallowing?denies.?nose bleeds?denies.?nasal congestion?denies.?ear ache?denies.?ear discharge denies.?ringing in ears?denies.?light sensitivity?denies.?eye pain?denies.?blurring?denies.?eye irritation?denies.?double vision?denies. vision loss?denies.?General/Constitutional:?Sweats:?Denies.?Fatigue?denies.?Sleep proble ms?denies.?Anorexia?denies.?Malaise?denies.?Weight loss?denies. Fatigue or Weakness?denies.?Fever or Chills?denies.?Cardiovascular:?Shortness of Breath w/lying flat?denies.?Lightheadedne ss/dizziness?denies.?Chest tightness/ heavy pressure?denies.?Swelling of legs, a nkles, or feet?denies.?Waking up with shortness of breath?denies.?Chest pain&#16 0;denies.?Palpitations?denies.?Weight gain?denies.?Respiratory:?Chronic or frequent cough?denies.?Coughing up blood&#1 60;denies.?Difficulty breathing?denies.?Productive cough?denies.?Snoring&#1 60;denies.?Shortness of breath that awakens from sleep (PND)?denies.?Chest pain? denies.?Sputum production?denies.?Wheezing?denies.?Musculoskeletal:?Joint pain?denies.?Joint Fluid?denies.?Backpain?denies.?Knee pain?denies.?Neck pain?denies.?Joint Stiffness?denies.?Muscle cramps?denies.?Weakness of muscles?denies.?Arthritis?denies.?Muscle aches?denies.?Pain in shoulder(s)?denies.?Swollen joints?denies.? 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, unspecified eye Modified On:01/26/2023U Status:bwjckesdwK23Rdleaxugzsfl Modified On:11/12/2023U Status:azlktlziwP77.00Insomnia Modified On:01/26/2023/U Status:yzqdgvhcuN49.1Hypertriglyceridemia Modified On:11/12/2023U Status:cjesbhrqeX29.90Acute sinusitis Modified On:01/26/2023U Status:xtioxjgdnJ36.00Well adult Modified On:01/26/2023U Status:qrlytuxtrK79.819Vitreous detachment Modified On:04/29/2023W/U Status:qggydolpeC40.3Over weight Modified On:01/26/2023 Status:nqufznmvnX31.9Impotence Modified On:01/26/2023 Status:lwhprgrikP94.9Nevus Modified On:01/26/2023 Status:gwangbovhD40.10Vitreous hemorrhage Modified On:01/26/2023U Status:awnuxfyfpA76.9Diabetes mellitus type II, non insulin dependent Modified On:11/12/2023U Status:cszvpvzeyI86.1COVID-19 virus infection Modified On:01/26/2023 Status:vqphatfmaC61.9Gastro-esophageal reflux disease without esophagitis Modified On:01/30/2023 Status:confirmed * Medical History: * Surgical History: H ernia Repair * Hospitalization/Major Diagno stic Procedure: D enies Past Hospitalization * Family History: F ather: , diagnosed with Heart Disease, Cancer. M other: alive. B natali(s): alive. * Social History: ???Tobacco Use:?Tobacco Use/Smoking?Patient is a?nonsmoker * Medications: T akingAspirin 81(Aspirin) 81 MG Tablet Chewable 1 tablet Orally Once a day Blood Glucose Monitor System w/Device Kit test blood sugar daily insurance covers one touch verioColesevelam HCl 625 MG Tablet TAKE 2 TABLETS BY MOUTH ONCE A DAY WITH A MEAL Farxiga(Dapagliflozin Propanediol) 10 MG Tablet TAKE 1 TABLET BY MOUTH EVERY DAY FreeStyle Lite Test(Glucose Blood) - Strip USE TO TEST BLOOD SUGAR ONCE DAILY DX E11.9 Glimepiride 4 MG Tablet TAKE 2 TABLETS BY MOUTH EVERY DAY Irbesartan 300 MG Tablet TAKE 1 TABLET BY MOUTH EVERY DAY Januvia(SITagliptin Phosphate) 100 MG Tablet TAKE 1 TABLET BY MOUTH EVERY DAY Ketoconazole 2 % Cream 1 application Externally Twice a day Lancets 30G - Miscellaneous as directed metFORMIN HCl 500 MG Tablet TAKE 2 TABLETS BY MOUTH TWICE A DAY OneTouch Verio(Glucose Blood) - Strip USE ONE STRIP DAILY TO MONITOR GLUCOSE Ozempic (0.25 or 0.5 MG/DOSE)(Semaglutide(0.25 or 0.5MG/DOS)) 2 MG/3ML Solution Pen-injector 0.5 mg Subcutaneous weekly Pantoprazole Sodium 40 MG Tablet Delayed Release TAKE 1 TABLET BY MOUTH EVERY DAY IN THE EVENING Sildenafil Citrate 100 MG Tablet TAKE 1 TABLET BY MOUTH ONCE A DAY NEEDED Taking Aspirin 81(Aspirin) 81 MG Tablet Chewable 1 tablet Orally Once a day Taking Blood Glucose Monitor System w/Device Kit test blood sugar daily insurance covers one touch verioTaking Colesevelam HCl 625 MG Tablet TAKE 2 TABLETS BY MOUTH ONCE A DAY WITH A MEAL Taking Farxiga(Dapagliflozin Propanediol) 10 MG Tablet TAKE 1 TABLET BY MOUTH EVERY DAY Taking FreeStyle Lite Test(Glucose Blood) - Strip USE TO TEST BLOOD SUGAR ONCE DAILY DX E11.9 Taking Glimepiride 4 MG Tablet TAKE 2 TABLETS BY MOUTH EVERY DAY Taking Irbesartan 300 MG Tablet TAKE 1 TABLET BY MOUTH EVERY DAY Taking Januvia(SITagliptin Phosphate) 100 MG Tablet TAKE 1 TABLET BY MOUTH EVERY DAY Taking Ketoconazole 2 % Cream 1 application Externally Twice a day Taking Lancets 30G - Miscellaneous as directed Taking metFORMIN HCl 500 MG Tablet TAKE 2 TABLETS BY MOUTH TWICE A DAY Taking OneTouch Verio(Glucose Blood) - Strip USE ONE STRIP DAILY TO MONITOR GLUCOSE Taking Ozempic (0.25 or 0.5 MG/DOSE)(Semaglutide(0.25 or 0.5MG/DOS)) 2 MG/3ML Solution Pen-injector 0.5 mg Subcutaneous weekly Taking Pantoprazole Sodium 40 MG Tablet Delayed Release TAKE 1 TABLET BY MOUTH EVERY DAY IN THE EVENING Taking Sildenafil Citrate 100 MG Tablet TAKE 1 TABLET BY MOUTH ONCE A DAY NEEDED Not-Taking/PRNJardiance(Empagliflozin) 10 MG Tablet 1 tablet Orally Once a day Medication List reviewed and reconciled with the patientNot-Taking/PRN Jardiance(Empagliflozin) 10 MG Tablet 1 tablet Orally Once a day Medication List reviewed and reconciled with the patient * Allergies: b milosalexandra[Allergies Verified] Objective: * Vitals: W t:261.8lbs, Ht: 70 in, BP:134/82mm Hg, BMI:37.56Index, Ht-cm: 177.8 cm, Wt-k.75 kg. * Examination: ???Physical Exam: ?GENERAL:?well developed, well nourished, in no acute distress.?HEAD:?normocephalic/atraumatic.?EYES:?pupils equal, round and reactive to light, conjunctivae and sclerae normal.?EARS:?no deformity or lesion of external ear, canals and TM appear normal bilaterally, TM's intact, not inflamed with normal light reflex, hearing grossly normal to conversational speech.?NOSE:?no deformity, discharge, inflammation, or lesions. ?MOUTH:?mucous membranes moist, normal oropharynx and posterior pharynx without lesions or exudates, tongue normal, dentition normal.?NECK:?neck supple, no masses or palpable cervical nodes, trachea midline, thyroid without nodules, masses, tenderness, or enlargement.?CHEST:?no chest wall deformity, no chest wall tenderness. ?LUNGS:?normal respiratory effort and clear to auscultation, no wheezes, rales, or rhonchi, good air exchange.?CARDIO:?regular rate and rhythm, normal S1 and S2, nor murmur, rub, or gallop.?PULSES:?normal capillary refill.?ABDOMEN:?soft, non-distended, non-tender, no masses.?MUSCULOSKELETAL:?no deformity or scoliosis noted, normal range of motion, joints normal, no erythema, edema, effusion, or ecchymosis.?EXTREMITY:?no clubbing, cyanosis, edema, or deformity withnormal ROM in both upper and lower bilateral extremities.?NEUROLOGIC:?grossly normal.?SKIN:?no rashes, ulcerations, or suspicious lesions.?LYMPH NODES:?no cervical adenopathy, nodes normal.?MENTAL STATUS:?alert and oriented x3, normal mood and affect.? Assessment: * Assessment: 1.?Insomnia - G47.00 (Primary)???2.?Hypertension - I10???3. Diabetes mellitus type II, non insulin dependent - E11.9???4.?Gastro-esophageal reflux disease without esophagitis - K21.9??? Plan: * Treatment: ?LAB: HEMOGLOBIN A1C (GLYCO) ?LAB: LIPID PANEL (CHOL/TRIG/HDL/LDL) ?LAB: STOOL OCCULT BLOOD ?LAB: THYROID PANEL (T4/TSH/FREE T3) ?LAB: PSA, SCREENING ?LAB: CMP (COMP MET PONCE) w/eGFR CKD-EPI ?LAB: CBC WITH DIFF2.?Hypertension?LAB: HEMOGLOBIN A1C (GLYCO) ?LAB: LIPID PANEL (CHOL/TRIG/HDL/LDL) ?LAB: STOOL OCCULT BLOOD ?LAB: THYROID PANEL (T4/TSH/FREE T3) ?LAB: PSA, SCREENING ?LAB: CMP (COMP MET PONCE) w/eGFR CKD-EPI ?LAB: CBC WITH DIFF3.?Diabetes mellitus type II, non insulin dependent? Stop Ozempic (0.25 or 0.5 MG/DOSE) Solution Pen-injector, 2 MG/3ML, 0.5 mg, Subcutaneous, weekly; Start Ozempic (1 MG/DOSE) Solution Pen-injector, 4 MG/3ML, 1 mg, Subcutaneous, weekly, 1, Refills 11.?LAB: HEMOGLOBIN A1C (GLYCO) ?LAB: LIPID PANEL (CHOL/TRIG/HDL/LDL) ?LAB: STOOL OCCULT BLOOD ?LAB: THYROID PANEL (T4/TSH/FREE T3) ?LAB: PSA, SCREENING ?LAB: CMP (COMP MET PONCE) w/eGFR CKD-EPI ?LAB: CBC WITH DIFF4.?Gastro-esophageal reflux disease without esophagitis?LAB: HEMOGLOBIN A1C (GLYCO) ?LAB: LIPID PANEL (CHOL/TRIG/HDL/LDL) ?LAB: STOOL OCCULT BLOOD ?LAB: THYROID PANEL (T4/TSH/FREE T3) ?LAB: PSA, SCREENING ?LAB: CMP (COMP MET PONCE) w/eGFR CKD-EPI ?LAB: CBC WITH DIFF5.?Others? Stop Jardiance Tablet, 10 MG, 1 tablet, Orally, Once a day.?? * Procedure Codes: * Preventive Medicine: ??Screenings/Counseling:?BMI ACTION PLAN?Above Normal BMI Follow-up?Dietary management education, guidance, and counseling * * Sign off status: CompletedVisit Status:?CHK (Check Out) true * Provider: Lorena Garza ([facility])MD Date: 1 10/05/2024 Generated for Printing[employer]/eTransmitting on:?08/12/2025 07:11 AM EST History and Physical Notes * HPI (History of Present Illness) CategorySub-CategoryDetailNotesCategory NotesGeneral doing the ozempic - disucssed DM - sugars still up at tiem - doing well with diet less active Blood pressure good gered - stabel on meds Left shoulder pain - nt realted to activity Examination CategorySub-CategoryDetailNotesCategory NotesPhysical ExamGENERAL:well developed, well nourished, in no acute distressHEAD:normocephalic/atraumatic EYES:pupils equal, round and reactive to light, conjunctivae and sclerae normal EARS:no deformity or lesion of external ear, canals and TM appear normal bilaterally, TM's intact, not inflamed with normal light reflex, hearing grossly normal to conversational speechNOSE:no deformity, discharge, inflammation, or lesionsMOUTH:mucous membranes moist, normal oropharynx and posterior pharynx without lesions or exudates, tonguenormal, dentition normalNECK:neck supple, no masses or palpable cervical nodes, trachea midline, thyroid without nodules, masses, tenderness, or enlargementCHEST:no chest wall deformity, no chest wall tendernessLUNGS:normal respiratory effort and clear to auscultation, no wheezes, rales, or rhonchi, good air exchangeCARDIO:regular rate and rhythm, normal S1 and S2, nor murmur, rub, or gallopPULSES:normal capillary refillABDOMEN:soft, non-distended, non-tender, no massesRECTAL:MUSCULOSKELETAL:no deformity or scoliosis noted, normal range of motion, joints normal, no erythema, edema, effusion, or ecchymosisEXTREMITY:no clubbing, cyanosis, edema, or deformity with normal ROM in both upper and lower bilateral extremitiesNEUROLOGIC:grossly normalSKIN:no rashes, ulcerations, or suspicious lesionsLYMPH NODES:no cervical adenopathy, nodes normalMENTAL STATUS:alert and oriented x3, normal mood and affect
--- OUTSIDE RECORDS SUMMARY | 2025-08-12 07:12 | XMS_ITS | Patient Health Record ---
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 Name Role Phone Dante Garza Primary Care Provider Allergies Allergen (clinical drug ingredient) Drug/Non Drug Allergy documented on EMR Reaction Allergy Type Onset Date Status bees (uncoded)UnknownAllergyActive Results Component Value Reference Range Notes CBC AUTO DIFF Reviewed date:08/31/2024 01:50:41 PM Interpretation: Performing Lab: Notes/Report: [facility] , White Blood Count 6.3 4.0-11.0 10 3/uL Red Blood Count5.044.70-6.10 10 6/sVPycvxojypo26.014.0-18.0 g/jPSwumyxdwms11.9 42.0-54.0 %Mean Corpuscular Irxumt85.180.0-94.0 fLMean Corpuscular Hemoglobin 29.825.9-34.0 pgMean Corpuscular HGB Conc33.429.9-35.2 g/dLRed Cell Distribution Width13.311.0-15.0 %Platelet Qgtsa422573-363 10 3/uLMean Platelet Zkvepv67.19.5- 13.5 fLNeutrophils Percent Auto61.743.0-75.0 %Lymphocytes Percent Auto24.820.5- 60.0 %Monocytes Percent Auto9.91.7-12.0 %Eosinophils Percent Auto2.10.9-7.0 % Basophils Percent Auto1.00.2-2.0 %Immature Granulocytes Pct Auto0.50.0-0.5 % Neutrophils Absolute Auto3.91.4-6.5 10 3/uLLymphocytes Absolute Auto1.61.2-3.8 10 3/uLMonocytes Absolute Auto0.60.3-0.8 10 3/uLEosinophils Absolute Auto0.10.0- 0.7 10 3/uLBasophils Absolute Auto0.10.0-0.1 10 3/uLImmature Granulocytes Abs Auto0.030.00-0.03 10 3/uLPerforming Lab:see noteML - [facility] LBTSH Reviewed date:08/31/2024 01:50:41 PM Interpretation: Performing Lab: Notes/Report: [facility] ,Thyroid Stimulating Hormone2.2840.358-3.740 uIU/mLPerforming Lab:see note - [facility] LBT4 Reviewed date:08/31/2024 01:50:41 PM Interpretation: Performing Lab: Notes/Report: [facility] ,T4 Thyroxine6.604.50-12.10 ug/dLPerforming Lab:see note - [facility] LBPSA SCREENING Reviewed date:08/31/2024 01:50:41 PM Interpretation: Performing Lab: Notes/Report: [facility] ,Prostate Specific Antigen Scrn0.56<=4.00 ng/mLPerforming Lab:[facility] LBPROF 14(COMP METB) Reviewed date:08/31/2024 01:50:41 PM Interpretation: Performing Lab: Notes/Report: [facility] ,Ieucfm943752-060 mmol/LPotassium4.33.5-5.1 mmol/NUlfqjrwx53779-360 mmol/LCarbon Gslctyb77.521.0-32.0 mmol/LAnion Gap13.2Atccjnx66606-653 mg/dLBlood Urea Hsghzart69.07.0-18.0 mg/dLCreatinine1.160.70-1.30 mg/dLEstimated GFR ( Maria Esther>60>=60 mL/min/1.73m 2Estimated GFR (Non- Belkys>60>=60 mL/min/1.73m 2BUN Creatinine Ratio15.9Szxvtxs2.98.5-10.1 mg/dLBilirubin Total0.50.2-1.0 mg/dL Aspartate Amino Cotdevzgxnc6958-35 U/LAlanine Vyizmbihdbmroatu2089-97 U/L Alkaline Xxrcmhuolwf3321-401 U/LTotal Protein7.16.4-8.2 g/dLAlbumin Level3.43.4- 5.0 g/dLGlobulin3.7Albumin Globulin Ratio0.9Performing Lab:see noteML - [facility] LBLIPID PROFILE Reviewed date:08/31/2024 01:50:41 PM Interpretation: Performing Lab: Notes/Report: [facility] ,Omlctowbmaicc424<=150 mg/lZQzguzrbptob103<=200 mg/dLHDL Oflplssfvbs9314-67 mg/dL <40 mg/dl - HIGH CARDIOVASCULAR RISK > or =60 mg/dl - LOW CARDIOVASCULAR RISK LDL Cholesterol Ogwrbuleyx093.0 130-159 mg/dl BORDERLINE HIGH >190 mg/dl VERY HIGH <100 mg/dl OPTIMAL 100-129 mg/dl NEAR OR ABOVE OPTIMAL 160-189 mg/dl HIGH VLDL IXSFNGIVSIW17.0Chol HDL Ratio5.0 7.1 - 11.0 MODERATE RISK 4.4 - 7.1 AVERAGE RISK 3.3 - 4.4 LOW RISK >11.0 HIGH RISK Performing Lab:see noteML - [facility] LBFREE T3 Reviewed date:08/31/2024 01:50:41 PM Interpretation: Performing Lab: Notes/Report: [facility] ,Free T32.222.18-3.98 pg/mLPerforming Lab:see noteML - [facility] LB COVID-19, Flu A+B IH Reviewed date:07/13/2025 02:21:39 PM Interpretation: Performing Lab: Notes/Report: COVIDnegFLU AnegFLU BnegControlposMICROALB CREAT RATIO RANDOM Reviewed date:07/13/2025 02:21:39 PM Interpretation: Performing Lab: Notes/Report: [facility] ,Microalbumin Urine Random<1.3<=30.0 mg/dLCreatinine Urine Uiqjit85.8720.00- 300.00 mg/dLPerforming Lab:see noteML - [facility] LBGLYCOHEMOGLOBIN A1C Reviewed date:07/13/2025 02:21:39 PM Interpretation: Performing Lab: Notes/Report: [facility] ,Glycohemoglobin A1C8.84.5-6.2 % > 7.0 ACTION SUGGESTED ADA RECOMMENDED LIMIT 4.0 - 6.0 ADA THERAPEUTIC TARGET < 7.0 Estimated Average Toyzpjr124Qxiijyjorc Lab:see note - [facility] LB CREATININE Reviewed date:07/13/2025 02:21:39 PM Interpretation: Performing Lab: Notes/Report: [facility] ,Creatinine1.160.70-1.30 mg/dLEstimated GFR ( Maria Esther>60>=60 mL/min/1.73m 2Estimated GFR (Non- Belkys>60>=60 mL/min/1.73m 2Performing Lab:[facility] LBGLYCOHEMOGLOBIN A1C Reviewed date:08/31/2024 01:50:41 PM Interpretation: Performing Lab: Notes/Report: [facility] ,Glycohemoglobin A1C8.74.5-6.2 % > 7.0 ACTION SUGGESTED ADA RECOMMENDED LIMIT 4.0 - 6.0 ADA THERAPEUTIC TARGET < 7.0 Estimated Average Dngatir488Kvcdeiirsr Lab:see note - [facility] LB Reason For Referral No Information Medications Medication SIG (Take, Route, Frequency, Duration) Notes Start Date End Date Status FreeStyle Lite Test - USE TO TEST BLOOD SUGAR ONCE DAILY DX E11.9; Duration: 90 ActiveGlimepiride 4 MGTAKE 2 TABLETS BY MOUTH EVERY DAY; Duration: 90Active Colesevelam HCl 625 MGTAKE 2 TABLETS BY MOUTH ONCE A DAY WITH A MEAL; Duration: 90ActiveFarxiga 10 MGTAKE 1 TABLET BY MOUTH EVERY DAY; Duration: 90 daysActive Ketoconazole 2 %1 application Externally Twice a day; Duration: ActiveLancets 30G -as directedActiveIrbesartan 300 MGTAKE 1 TABLET BY MOUTH EVERY DAY; Duration: 90ActiveJanuvia 100 MGTAKE 1 TABLET BY MOUTH EVERY DAY; Duration: 90ActivePantoprazole Sodium 40 MGTAKE 1 TABLET BY MOUTH EVERY DAY IN THE EVENING; Duration: 30ActivemetFORMIN HCl 500 MGTAKE 2 TABLETS BY MOUTH TWICE A DAY; Duration: 90ActiveOzempic (1 MG/DOSE) 4 MG/3ML1 mg Subcutaneous weekly 5ActiveAspirin 81 81 MG1 tablet Orally Once a dayActiveOneTouch Verio - USE ONE STRIP DAILY TO MONITOR GLUCOSE; Duration: 90ActiveSildenafil Citrate 100 MGTAKE 1 TABLET BY MOUTH ONCE A DAY NEEDED; Duration: 30ActiveBlood Glucose Monitor System w/Device test blood sugar daily; Duration: 365 days insurance covers one touch verio Active Immunizations Vaccine Route Administration Date Status Comme nts Flu, Fluzone High-Dose (9066 2) 65 yrs and older, single-dose syringe (0936-5257) Unknown 07/15/2025 Administered PPD TestID Izzotuoppiw10/12/2023Administered Social History Tobacco Use: Social History Observation Description Date Details (start date - stop date) Never Smoker NA - NA Tobacco Use/Smoking Question Answer Notes Patient is a nonsmoker Alcohol Screen (Audit-C) Question Answer Notes Did you have a drink containing alcohol in the p ast year? No Cgxpvm5EjvcloxtkmqrzzFdijxbsa Problems Problem Type SNOMED Code ICD Code Onset Dates Problem Status W/U Status Risk Notes Problem Gastro-esophageal re flux disease without esophagitis (749084348) Gastro-esophageal reflux disease without esophagitis (K21.9) ActiveconfirmedProblemHorseshoe retinal tear without detachment (523070620) Horseshoe tear of retina without detachment, unspecified eye (H33.319)Active confirmedProblemHypertension (69410809)Hypertension (I10)ActiveconfirmedProblem Insomnia (946639290)Insomnia (G47.00)ActiveconfirmedProblemHypertriglyceridemia (112119561)Hypertriglyceridemia (E78.1)ActiveconfirmedProblemAcute sinusitis (30949578)Acute sinusitis (J01.90)ActiveconfirmedProblemWell adult (031104372) Well adult (Z00.00)ActiveconfirmedProblemVitreous detachment (89509780)Vitreous detachment (H43.819)ActiveconfirmedProblemOverweight (067432520)Over weight (E66.3)ActiveconfirmedProblemErectile dysfunction (disorder) (481250746) Impotence (N52.9)ActiveconfirmedProblemNevus (0378885930)Nevus (D22.9)Active confirmedProblemVitreous hemorrhage (07232040)Vitreous hemorrhage (H43.10)Active confirmedProblemType II diabetes mellitus without complication (075806689) Diabetes mellitus type II, non insulin dependent (E11.9)ActiveconfirmedProblem Disease caused by Severe acute respiratory syndrome coronavirus 2 (disorder) (671510218)COVID-19 virus infection (U07.1)Activeconfirmed Vital Signs Blood pressure diastolic 82 mm Hg 08/05/2025 Qfuymc13 in08/05/2025lood pressure ufmizoax539 mm Hg08/05/20251573Ygkxli641.8 lbs 08/05/2025BMI37.56 kg/m208/05/2025 Encounters Encounter Location Date Provider Diagnosis [address] [address] 08/21/2024 Dante Hoy Hypertension I10 ; Hypertriglyceridemia E78.1 ; Gastro-esophageal reflux disease without esophagitis K21.9 and Diabetes mellitus type II, non insulin dependent E11.[address] [address] 11/05/2024 Dante Hoy Acute non-recurrent sinusitis, unspecified location J01.90 and Nasal congestion R09.[address] [address] 02/04/2025 Dante Hoy Hypertension I10 ; D iabetes mellitus type II, non insulin dependent E11.9 ; Gastro-esophageal reflux disease without esophagitis K21.9 and Hypertriglyceridemia E78.[address] [address] 05/06/2025 Dante Hoy Hypertension I10 ; D iabetes mellitus type II, non insulin dependent E11.9 ; Gastro-esophageal reflux disease without esophagitis K21.9 and Impotence N52.[address] [address] 08/05/2025 Dante Hoy Insomnia G47.00 ; Hypertension I10 ; Diabetes mellitus type II, non insulin dependent E11.9 and Gastro-esophageal reflux disease without esophagitis K21.[address] [place] [address] 08/31/2024 Dante Kayla [facility] [place] [address] 01/27/2025[facility]BS[facility] [place] [address]/Doug HoyHypertension X90QsjbcadNorth [facility] [address] [place] [place] [address]/Doug HoyHypertension I10 [facility] [place] [place] [address] 07/13/2025Doug Hoy Assessments Encounter Date Diagnosis (ICD Code) Assessment Notes Treatment Notes Treatment Clinical Notes Section Notes 08/21/2024 Hypertension (ICD-10 - I10) 08/21/2024Hypertriglyceridemia (ICD-10 - E78.1)5Acute non-recurrent sinusitis, unspecified location (ICD-10 - J01.90)Rest and drink more liquids, especially water. You may use a humidifier or vaporizer to help keep the drainage moist. Hgol-gmi-xcvbvcr Nasal Saline may help the stuffy and runny nose. Use Ibuprofen and or Tylenol as needed for fever, chills, body aches or pain. Children 5 years old should not be given wtem-qdw-ynuhrzj cough and cold medications such as guaifenesin and dextromethorphan. If you're over age 5, you may try ccbq-wtj-drqmfbc cold medications such as guaifenesin and dextromethorphan, or multi-symptom cold reliever such as Dayquil to help reduce the symptoms. Antibiotics have been prescribed. You should take these until completed and follow the directions. Antibiotics can sometimescause upset stomach, and in rare cases, serious allergic reactions or serious gastrointestinal problems. If you start having severe abdominal pain, severe vomiting, or bloody diarrhea, you should be reevaluated by your physician or urgent care immediately. Follow up with your Primary Care Provider or return to clinic if symptoms do not improve within 3-5 days02/04/2025Hypertension (ICD-10 - I10)decent pnxgdkw2002/04/2025Diabetes mellitus type II, non insulin dependent (ICD-10 - E11.9)sugar too hig on 4 oral meds - need ldorbzw9405/06/2025 Hypertension (ICD-10 - I10)05/06/2025Diabetes mellitus type II, non insulin dependent (ICD-10 - E11.9)08/05/2025Insomnia (ICD-10 - G47.00)08/05/2025 Hypertension (ICD-10 - I10)05/27/2025Hypertension (ICD-10 - I10)06/17/2025 Hypertension (ICD-10 - I10)08/05/2025Diabetes mellitus type II, non insulin dependent (ICD-10 - E11.9)05/06/2025Gastro-esophageal reflux disease without esophagitis (ICD-10 - K21.9)02/04/2025Gastro-esophageal reflux disease without esophagitis (ICD-10 - K21.9)stable on meds11/05/2024Nasal congestion (ICD-10 - R09.81)08/21/2024Gastro-esophageal reflux disease without esophagitis (ICD-10 - K21.9)08/21/2024iabetes mellitus type II, non insulin dependent (ICD-10 - E11.9)02/04/2025Hypertriglyceridemia (ICD-10 - E78.1)05/06/2025Impotence (ICD-10 - N52.9)08/05/2025Gastro-esophageal reflux disease without esophagitis (ICD-10 - K21.9) Plan Of Treatment Pending Test Test Name Order Date CMP (COMPLETE METABOLIC PANEL) 4 CMP (COMPLETE METABOLIC PANEL) 3 HEMOGLOBIN A1C (GLYCO) 08/21/2024 HEMOGLOBIN A1C (GLYCO) 08/05/2025 LIPID PANEL (CHOL/TRIG/HDL/LDL) 08/21/20 24 LIPID PANEL (CHOL/TRIG/HDL/LDL) 08/05/20 25 CBC WITH DIFF 08/21/2024 PSA, PROSTATE-SPECIFIC ANTIGEN 3 CBC W/AUTO DIFF 08/05/2023 PSA, TOTAL 08/21/2024 STOOL OCCULT BLOOD 08/21/2024 STOOL OCCULT BLOOD 08/05/2025 THYROID PANEL (T4/TSH/FREE T3) 5 THYROID PANEL (T4/TSH/FREE T3) 4 THYROID PANEL (T4/TSH/FREE T3) 3 PSA, SCREENING 08/05/2025 CMP (COMP MET PONCE) w/eGFR CKD-EPI 2024 CBC WITH DIFF 08/05/2025 Next Appt Details Provider Name:Dante Garza, 08:30:00 AM, [address] [place], [address], Insurance Providers Payer Name Payer Address Payer Phone Subscriber Number Group Number Insured Name Patient Relationship to Insured Coverage Start Date Coverage End Date [facility] [address] [place] [phone] [id number] Shamir Springer - patient is the insured[place] [id number], RichardSelf - patient is the insured Medical (General) History Medical History History ICD Code COVID-19 virus infection U07.1 Nevus D22.9 Over weight E66.3 Acute sinusitis J01.90 Hypertriglyceridemia E78.1 Diabetes mellitus type II, non insulin d ependent E11.9 Impotence N52.9 Insomnia G47.00 Horseshoe tear of retina without detachm ent, unspecified eye H33.319 Vitreous hemorrhage H43.10 Vitreous detachment H43.819 Well adult Z00.00 Hypertension I10 Surgical History Surgery Date(Month/Year) Hernia Repair
--- OUTSIDE RECORDS SUMMARY | 2025-08-12 07:12 | XMS_ITS | CCD ---
Author Organization [facility] Care Team Providers Care Financial Professional Name Role Phone Fernie Garza Primary Care Physician Eric SOLIS Attending Unavailable NILL, Eric Mcfadden Attending Unavailable NILL, Eric Mcfadden Attending Unavailable Fernie Garza Referring Unavailable Eric SOLIS Attending Unavailable NATEY [...] ., DR ENC[employer] Consulting Unavailable Allergies Allergy ClassificationReported Allergen(s)Allergy TypeDate of OnsetReaction(s) Facility (1 source)No Known Medication Allergies; Translations: [No Known Medication Allergies]Propensity to adverse reactions (disorder)[facility] Repository Medications Current Medications MedicationDrug Class(es)DatesSig (Normalized)Sig (Original)aspirin 81 mg chewable tablet (3 sources)Platelet Aggregation Inhibitor, Nonsteroidal Anti-inflammatory Drug Start: 80-34-3069djwjcux 81 mg Chew Tab 81 mg = 1 tab(s), Chewed, Daily, Refills(s) 0 Start Date: 11/09/22 Status: Orderedcolesevelam hydrochloride 625 mg oral tablet (3 sources)Bile Acid SequestrantStart: 61-05-2663vupv 1 tablet by mouth four times dailyWelchol 625 mg Tab 625 mg = 1 tab(s), Oral, QID, Refills(s) 0 Start Date: 11/09/22 Status: Ordereddapagliflozin 5 mg oral tablet (3 sources)Sodium-Glucose Cotransporter 2 InhibitorStart: 21-52-4407udhm 1 tablet by mouth once dailyFarxiga 5 mg oral tablet 5 mg = 1 tab(s), Oral, Daily, Refills(s) 0 Start Date: 11/09/22 Status: Orderedglimepiride 4 mg oral tablet (3 sources)SulfonylureaStart: 83-65-4927cxcv 1 tablet by mouth once daily glimepiride 4 mg Tab 4 mg = 1 tab(s), Oral, Daily, Refills(s) 0 Start Date: 11/09/22 Status: Orderedirbesartan 300 mg oral tablet (3 sources)Angiotensin 2 Receptor BlockerStart: 41-04-0116roti 1 tablet by mouth once dailyirbesartan 300 mg Tab 300 mg = 1 tab(s), Oral, Daily, Refills(s) 0 Start Date: 11/09/22 Status: OrderedmetFORMIN hydrochloride 500 mg oral tablet (3 sources)BiguanideStart: 25-40-3782bmiz 2 tablets by mouth twice daily metformin 500 mg Tab 1,000 mg = 2 tab(s), Oral, BID, Refills(s) 0 Start Date: 11/09/22 Status: Orderedsildenafil 100 mg oral tablet (3 sources)Phosphodiesterase 5 InhibitorStart: 97-77-7638bwqh 1 tablet by mouth once daily as neededsildenafil 100 mg Tab 100 mg = 1 tab(s), Oral, Daily, PRN erectile dysfunction, Refills(s) 0 Start Date: 11/09/22 Status: Ordered Problems Active Problems Problem ClassificationProblemDateDocumented DateEpisodic/ChronicAbdominal hernia (1 source)Diaphragmatic hernia without obstruction or gangrene; Translations: [DIAPH HERNIA W/O OBST/GANGRENE]Onset: 23-85-6708YreiguiaNnhgdxtcl pain (4 sources)Unspecified abdominal pain; Translations: [UNSPECIFIED ABDOMINAL PAIN]Onset: 65-49-4364NfscqrmeNrlwjwtp mellitus without complication (7 sources)Diabetes mellitus; Translations: [Type 2 diabetes mellitus without complications]Onset: 757033-55-5109OpbjqjsGozxfnzrg of lipid metabolism (4 sources)Hypertriglyceridemia; Translations: [Hyperlipidemia, unspecified] Onset: 614387-52-3017WthecdpAamvwbffd hypertension (7 sources)Essential hypertension; Translations: [Hypertensive disorder]Onset: 643432-78-9218XqddzhdVlkbba and vomiting (1 source)Nausea with vomiting, unspecified; Translations: [NAUSEA WITH VOMITING UNSPECIFIED]Onset: 49-14-8469JcgywrnoFtcnvfvym of unspecified nature or uncertain behavior (5 sources)Neoplasm of uncertain behavior of skin; Translations: [Neoplasm of uncertain behavior of skin]Onset: 02-33-5082VtvopkelJxjkw aftercare (1 source)Other snf (current) drug therapy; Translations: [OTH DELIVERY NURSE CURRENT DRUG THERAPY]Onset: 41-10-9073QphwpqzeWnyrc aftercare (1 source)assisted (current) use of oral hypoglycemic drugs; Translations: [GROUP HOME USE ORAL HYPOGLYCEMIC DX]Onset: 02-93-4012AesaqpzfBvbwl gastrointestinal disorders (1 source)Diarrhea, unspecified; Translations: [DIARRHEA UNSPECIFIED]Onset: 94-92-0552QnptquqbPszaa liver diseases (1 source)Fatty (change of) liver, not elsewhere classified; Translations: [FATTY CHANGE LIVER NEC]Onset: 85-59-6546UfagcisHvusr male genital disorders (1 source)Male erectile dysfunction, unspecified; Translations: [MALE ERECTILE DYSFUNCTION UNS]Onset: 00-10-0651PtilvfsKpwxg nutritional; endocrine; and metabolic disorders (3 sources)Body mass index 30+ - ougyvxp08-32-5258XzcaosuAeeog upper respiratory infections (4 sources)Acute sinusitis, unspecified; Translations: [ACUTE SINUSITIS UNSPECIFIED]Onset: 04-24-5828XmjpyrtxPvddbdss codes; unclassified (3 sources)Hwljlxer47-75-8092GchfltbvNtigm infection (1 source)COVID-19; Translations: [COVID-19]Onset: 11-01-2022 Past or Other Problems Problem ClassificationProblemDateDocumented DateEpisodic/ChronicDiabetes mellitus without complication (1 source)Other abnormal glucose; Translations: [OTHER ABNORMAL GLUCOSE]Onset: 11-48-0869CxjtkjljQnmcq screening for suspected conditions (not mental disorders or infectious disease) (2 sources)Encounter for screening for malignant neoplasm of prostate; Translations: [Encounter for screening for malignant neoplasm of rectum]Onset: 27-41-9424Nmlqsfmw Results Test NameValueInterpretationReference RangeFacilityCBC AUTO DIFFon 12-27-2022 BASO #0.1 103/ulNormal0.0-0.1The [facility]ment on above:Performed By: #### CBC #### [facility] [address] [address] [address] April WoodsBasophils/100 WBC (Bld)0.8 %Normal0.2-2.0The [facility] Comment on above:Performed By: #### CBC #### [facility] [address] [address] [address] April Olivas #0.1 103/ulNormal0.0-0.7The [facility] HospitalComment on above: Performed By: #### CBC #### [facility] [address] [place] [address] Dr. April Roseosinophils/100 WBC (Bld)0.6 %Critically low0.9-7.0The [facility] HospitalComment on above:Performed By: #### CBC #### [facility] [address] [address] [address] April Roserythrocyte distribution width (RBC) [Ratio]14.4 %Rueqjn42.0-15.0 The [facility] Hospitalment on above:Performed By: #### CBC #### [facility] [address] [address] [address] April WoodsHematocrit (Bld) [Volume fraction]47.1 %Mijuuq63.0-54.0The [facility]ment on above:Performed By: #### CBC #### [facility] [address] [address] [address] April WoodsHemoglobin (Bld) [Mass/Vol]15.8 g/zNMfzfkx38.0-18.0The [facility]ment on above:Performed By: #### CBC #### [facility] [address] [place] [address] Dr. April Edgar #0.05 10e3/ulCritically high0.00-0.03The [facility] Comment on above:Performed By: #### CBC #### [facility] [address] [address] [address] April Edgar %0.4 %Normal0.0-0.5The [facility] HospitalComment on above: Performed By: #### CBC #### [facility] [address] [address] [address] April Viera #1.1 103/ulCritically low1.2-3.8The [facility] Comment on above:Performed By: #### CBC #### [facility] [address] [address] [address] April Majorhocytes/100 WBC (Bld)8.3 %Critically low20.5-60.0[facility] CenterComment on above:Performed By: #### CBC #### [facility] [address] [place] [address] Dr. April Benítez DIFF REQNONormalThe [facility] HospitalComment on above: Performed By: #### CBC #### [facility] [address] [place] [address] Dr. April Gustafson (RBC) [Entitic mass]30.0 kkWdcqit23.9-34.0The [facility] HospitalComment on above:Performed By: #### CBC #### [facility] [address] [place] [address] Dr. April Carrero (RBC) [Mass/Vol]33.5 g/cZDpjlve63.9-35.2[facility] CenterComment on above:Performed By: #### CBC #### [facility] [address] [place] [address] Dr. April Carrero (RBC) [Entitic vol]89.5 cBJgblgw70.0-94.0The [facility] HospitalComment on above:Performed By: #### CBC #### [facility] [address] [place] [address] Dr. April Grove #0.8 103/ulNormal0.3-0.8The [facility] HospitalComment on above:Performed By: #### CBC #### [facility] [address] [place] [address] Dr. April Espinoocytes/100 WBC (Bld)5.9 %Normal1.7-12.0[facility] Comment on above:Performed By: #### CBC #### [facility] [address] [place] [address] Dr. April Tee #11.1 103/ulCritically high1.4-6.5The [facility] Comment on above:Performed By: #### CBC #### [facility] [address] [place] [address] Dr. April Burgessutrophils/100 WBC (Bld)84.0 %Critically high43.0-75.0The [facility] HospitalComment on above:Performed By: #### CBC #### [facility] [address] [place] [address] Dr. April Cazareslet mean volume (Bld) [Entitic vol]9.8 fLNormal9.5-13.5The [facility] HospitalComment on above:Performed By: #### CBC #### [facility] [address] [place] [address] Dr. April WoodsPLT277 103/wdDpaicw332-939Diu [facility] HospitalComment on above: Performed By: #### CBC #### [facility] [address] [place] [address] Dr. April WoodsRBC5.26 106/ulNormal4.70-6.10The [facility] HospitalComment on above:Performed By: #### CBC #### [facility] [address] [place] [address] Dr. April WoodsWBC13.2 103/ulCritically high4.0-11.0The [facility] HospitalComment on above:Performed By: #### CBC #### [facility] [address] [place] [address] Dr. April WoodsCT ABD/PELV W CONon 35-04-1964SE ABD/PELV W CONEXAM: CT ABD/PELV W CON HISTORY: UNSPECIFIED ABDOMINAL [...] Electronically authenticated by: BARRINGTON HENDERSON Date: 2022-12-27 15:47The Jewish HospitalLIPASEon 65-22-0239Grzdpl [Catalytic activity/Vol]461.0 U/L Critically high73.0-393.0The [facility] HospitalComment on above:Performed By: #### CMP, LIPA #### [facility] [address] [place] [address] Dr. April De Leon 14(COMP METB)on 62-58-5911Wepcuzw [Mass/Vol]4.1 g/dLNormal 3.4-5.0The [facility] HospitalComment on above:Performed By: #### CMP, LIPA #### [facility] [address] [place] [address] Dr. April WoodsAlbumin/Globulin [Mass ratio]1.1 {ratio}NormalThe [facility] Hospitalment on above:Performed By: #### CMP, LIPA #### [facility] [address] [address] [address] April BlandP [Catalytic activity/Vol]88 U/KTdrlmk06-051Ddc [facility] HospitalComment on above:Performed By: #### CMP, LIPA #### [facility] [address] [address] [address] April BlandT [Catalytic activity/Vol]36 U/FVcccay45-87Qbw [facility] HospitalComment on above:Performed By: #### CMP, LIPA #### [facility] [address] [address] [address] April Portilloon gap [Moles/Vol]13.8 mmol/LNormalThe [facility] Comment on above:Performed By: #### CMP, LIPA #### [facility] [address] [place] [address] Dr. April WoodsAST [Catalytic activity/Vol]18 U/DMsvvcy06-54Bru [facility] HospitalComment on above:Performed By: #### CMP, LIPA #### [facility] [address] [place] [address] Dr. April WoodsBilirubin [Mass/Vol]0.4 mg/dLNormal0.2-1.0[facility] Comment on above:Performed By: #### CMP, LIPA #### [facility] [address] [place] [address] Dr. April WoodsCalcium [Mass/Vol]8.8 mg/dLNormal8.5-10.1[facility] Comment on above:Performed By: #### CMP, LIPA #### [facility] [address] [place] [address] Dr. April WoodsChloride [Moles/Vol]103 mmol/XAvpmjp90-658KeuAshtabula County Medical Center Comment on above:Performed By: #### CMP, LIPA #### [facility] [address] [place] [address] Dr. April WoodsCO2 [Moles/Vol]26.6 mmol/EIgibze87.0-32.0The [facility] Comment on above:Performed By: #### CMP, LIPA #### [facility] [address] [address] [address] April WoodsCreatinine [Mass/Vol]0.84 mg/dLNormal0.70-1.30The [facility] on above:Performed By: #### CMP, LIPA #### [facility] [address] [address] [address] Chen ChangEGFR-AF ENGLISH>60Normal>=60The [facility] HospitalComment on above:Performed By: #### CMP, LIPA #### [facility] [address] [address] [address] April RoseGFR-NON AF ENGLISH>60Normal>=60The [facility] HospitalComment on above:Performed By: #### CMP, LIPA #### [facility] [address] [address] [address] April WoodsGlobulin (S) [Mass/Vol]3.7 g/dLNormalThe [facility] HospitalComment on above:Performed By: #### CMP, LIPA #### [facility] [address] [address] [address] April WoodsGlucose [Mass/Vol]175 mg/dLCritically kxyc32-156Zee [facility] Hospitalment on above:Performed By: #### CMP, LIPA #### [facility] [address] [address] [address] April WoodsPotassium [Moles/Vol]4.4 mmol/LNormal3.5-5.1The [facility] Comment on above:Performed By: #### CMP, LIPA #### [facility] [address] [address] [address] April WoodsProtein [Mass/Vol]7.8 g/dLNormal6.4-8.2The [facility] Comment on above:Performed By: #### CMP, LIPA #### [facility] [address] [address] [address] April WoodsSodium [Moles/Vol]139 mmol/IWverfh062-012Rns [facility] Comment on above:Performed By: #### CMP, LIPA #### [facility] [address] [address] [address] April Valencia nitrogen [Mass/Vol]24.0 mg/dLCritically high7.0-18.0The [facility] HospitalComment on above:Performed By: #### CMP, LIPA #### [facility] [address] [place], [place] [address] Dr. April WoodsUrea nitrogen/Creatinine [Mass ratio]28.6 mg/mgNormalThe [facility] HospitalComment on above:Performed By: #### CMP, LIPA #### [facility] [address] [address] [address] April WoodsPathology Noteon 11-71-0396Atxuksgcy Note [id number]#1.00CD:127[facility] ShawAmbulatory Visit Summaryon 16-02-9115Fgblesbyam Visit Summary MARIANA MCCURDY :1950 Visit Date:12/11/2022 Ambulatory Visit Instructions Your Care Team Attending Physician - GERALD CANELA, Eric Mcfadden Primary Care Physician - Fernie Garza MD This Is Your Medications List aspirin [...] of uncertain behavior of skin of face [facility] Surgery Office/Clinic Noteon 69-51-2428Tcfxolc Surgery Office/Clinic NoteChief Complaint follow up in-office excisional biopsy HPI [...] swallowing difficulties, no hearing loss, no ear infection(s),no nose bleeds. Cardiovascular: normal blood pressure, no [...] 12/21/2020 Recorded SARS-CoV-2 (COVID-19) mRNA-1273 vaccine 11/24/2020 RecordedSelect Medical [facility], Edwin ShawComment on above:Result Comment: Electronically Signed By: GERALD CANELA, Eric Butler\Date and Time Signed: 12/11/22 15:30 EDTFacesheeton 12-06-2022 [id number]#1.00CD:127[facility] ShawGeneral Surgery Office/Clinic Noteon 39-06-3457Ofldtgo Surgery Office/Clinic NoteChief Complaint in-office excisional biopsy HPI Staff Presents [...] swallowing difficulties, no hearing loss, no ear infection(s),no nose bleeds. Cardiovascular: normal blood pressure, no [...] with 0.5 % marcaine; excised down to subcutaneousfat, total length 5 mm; closed with interrupted 5-0 nylon sutures, ebl < 3 ml; tolerated well.[facility] ShawComment on above:Result Comment: Electronically Signed By: GERALD CANELA, Eric Mcfadden\.br\Date and Time Signed: 12/06/22 16:23 ESTAmbulatory Visit Summaryon 95-33-4909Wkirhphygi Visit Summary MARIANA MCCURDY :1950 Visit Date:12/04/2022 Ambulatory Visit Instructions Your Care Team Attending Physician - Eric SOLIS MD Primary Care Physician - Fernie Garza MD This Is Your Medications List aspirin [...] With: Eric SOLIS MD Where: General Surgery Gerald/Said [facility] Ambulatory Visit Summaryon 77-11-3953Rwhookazzv Visit Summary MARIANA MCCURDY :1950 Visit Date:11/16/2022 Ambulatory Visit Instructions Your Diagnosis Neoplasm of uncertain behavior of skin of face Your Care Team Attending Physician - Eric SOLIS MD Primary Care Physician - Fernie Garza MD This Is Your Medications List Contact [...] With: Eric SOLIS MD Where: General Surgery [facility] Physician Referralon 41-42-3887Phturysfd Referral [id number]#1.00CD:127[facility] ShawCovid-19 PCR (CVDTB)on 58-37-0616WCNR-CoV-2 (COVID-19) RNA IRIS+probe Ql (Unsp spec)DetectedAbnormalNOT DETECTEDThe [facility] on above: Result Comment: This test is not yet approved or cleared by the [place] FDA. When there are no FDA-approved or cleared tests available, and other criteria are met, FDA can make tests available under an emergency access mechanism called an Emergency Use Authorization (EUA). The EUA for this test is supported by the [place] of Health and Human Service's declaration that circumstances exist to justify the emergency use of in vitro diagnostics for the detection and/or diagnosis of the virusthat causes COVID-19. This EUA will remain in effect for the duration of the COVID-19 declaration justifying emergency of IVDs, unless it is terminated or revoked by the FDA (after which the test mayno longer be used).Performed By: #### CVDTBH ####[facility] [address] [address]Dr. April WoodsINFLUENZA A AND B AGon 90-78-1369EOINASEYBHZUA [facility] FoundationComment on above:Result Comment: Negative for Flu A protein angiten. Infection due to Flu A cannot be ruled out. FluA angiten in the sample may be below the detection limit of the test.Performed By: #### INFLUAB ####[facility] [address] [place], [place] [address]Dr. April WoodsINFLUBNEGHSEE [facility] FoundationCommclaren thumb region on above:Result Comment: Negative for Flu B protein antigen. Infection due to Flu B cannot be ruled out. FluB antigen in the sample may be below the detection limit of the test.Performed By: #### INFLUAB ####[facility] [address] [place], [place] [address]Dr. April JohnstonNZA A AGNegativeNormalNEGATIVE SEE COMMENTThe [facility] Comment on above:Performed By: #### INFLUAB ####[facility] [address] [place], [place] [address]Dr. April WoodsINFLUENZA B AGNegativeNormal NEGATIVE SEE COMMENTThe [facility] HospitalComment on above:Performed By: #### INFLUAB ####[facility] [address] [place], [place] [address]Dr. April WoodsINSULINon 93-90-8683Mzordvx73.0 uIU/mLNormal2.6-24.9The [facility] HospitalComment on above:Performed By: #### INSULIN #### [facility] [address] [place] [address] Dr. April Tello AUTO DIFFon 64-19-6519WKBM #0.1 103/ulNormal0.0-0.1The [facility] HospitalComment on above:Performed By: #### CBC #### [facility] [address] [address] [address] April WoodsBasophils/100 WBC (Bld)1.4 %Normal0.2-2.0The [facility] Comment on above:Performed By: #### CBC #### [facility] [address] [address] [address] April Olivas #0.3 103/ulNormal0.0-0.7The [facility] HospitalComment on above: Performed By: #### CBC #### [facility] [address] [address] [address] April Roseosinophils/100 WBC (Bld)3.8 %Normal0.9-7.0The [facility] Comment on above:Performed By: #### CBC #### [facility] [address] [place] [address] Dr. April Roserythrocyte distribution width (RBC) [Ratio]13.6 %Jrhxyl67.0-15.0 The [facility] HospitalComment on above:Performed By: #### CBC #### [facility] [address] [place] [address] Dr. April WoodsHematocrit (Bld) [Volume fraction]43.4 %Ffjphg14.0-54.0The [facility] HospitalComment on above:Performed By: #### CBC #### [facility] [address] [place] [address] Dr. April WoodsHemoglobin (Bld) [Mass/Vol]14.7 g/cRRrxfrd59.0-18.0The [facility] HospitalComment on above:Performed By: #### CBC #### [facility] [address] [place] [address] Dr. April Edgar #0.02 10e3/ulNormal0.00-0.03The [facility] HospitalComment on above:Performed By: #### CBC #### [facility] [address] [place] [address] Dr. April Edgar %0.3 %Normal0.0-0.5The [facility] HospitalComment on above: Performed By: #### CBC #### [facility] [address] [address] [address] April Viera #2.3 103/ulNormal1.2-3.8The [facility] HospitalComment on above:Performed By: #### CBC #### [facility] [address] [address] [address] April Majorhocytes/100 WBC (Bld)34.3 %Jwvzpy50.5-60.0The [facility] HospitalComment on above:Performed By: #### CBC #### [facility] [address] [place] [address] Dr. April Benítez DIFF REQNONormalThe [facility] HospitalComment on above: Performed By: #### CBC #### [facility] [address] [place] [address] Dr. April Gustafson (RBC) [Entitic mass]29.9 ofZypgyn96.9-34.0The [facility] Hospitalment on above:Performed By: #### CBC #### [facility] [address] [place] [address] Dr. April Carrero (RBC) [Mass/Vol]33.9 g/jLWsvgwq08.9-35.2The [facility] on above:Performed By: #### CBC #### [facility] [address] [place] [address] Dr. April Carrero (RBC) [Entitic vol]88.4 dGIqroqg51.0-94.0The [facility] Hospitalment on above:Performed By: #### CBC #### [facility] [address] [place] [address] Dr. April Grove #0.6 103/ulNormal0.3-0.8The [facility] on above:Performed By: #### CBC #### [facility] [address] [address] [address] April Espinoocytes/100 WBC (Bld)9.1 %Normal1.7-12.0The [facility] Comment on above:Performed By: #### CBC #### [facility] [address] [address] [address] April Tee #3.4 103/ulNormal1.4-6.5The [facility] HospitalComment on above:Performed By: #### CBC #### [facility] [address] [address] [address] April Burgessutrophils/100 WBC (Bld)51.1 %Lmmfvn90.0-75.0The [facility] HospitalComment on above:Performed By: #### CBC #### [facility] [address] [place] [address] Dr. April Bledsoe mean volume (Bld) [Entitic vol]9.3 fLCritically low 9.5-13.5The [facility] HospitalComment on above:Performed By: #### CBC #### [facility] [address] [place] [address] Dr. April WoodsPLT270 103/lmYntldh665-023Edu [facility] HospitalComment on above: Performed By: #### CBC #### [facility] [address] [place] [address] Dr. April WoodsRBC4.91 106/ulNormal4.70-6.10The [facility] HospitalComment on above:Performed By: #### CBC #### [facility] [address] [place] [address] Dr. April WoodsWBC6.6 103/ulNormal4.0-11.0The [facility] HospitalComment on above: Performed By: #### CBC #### [facility] [address] [place] [address] Dr. April WoodsGLYCOHEMOGLOBIN A1Con 32-74-2354QRR RECOMMENDATIONSEE BELOWNormal [facility] CenterComment on above:Result Comment: ADA RECOMMENDED LIMIT 4.0 - 6.0 ADA THERAPEUTIC TARGET < 7.0 ACTION SUGGESTED > 7.0Performed By: #### A1C #### [facility] [address] [place], [place] [id number] Dr. April WoodsGlucose [Mass/Vol]134 mg/dLNoGalion HospitalComment on above:Performed By: #### A1C #### [facility] [address] [place] [address] Dr. April WoodsHbA1c (Bld) [Mass fraction]6.3 %Critically high4.5-6.2The [facility] HospitalComment on above:Performed By: #### A1C #### [facility] [address] [place] [address] Dr. April RosadoID PROFILEon 87-72-9609BBLD-HDL RATIO NORMSEE [facility] FoundationComment on above:Result Comment: 3.3 - 4.4 LOW RISK 4.4 - 7.1 AVERAGE RISK 7.1 - 11.0 MODERATE RISK >11.0 HIGH RISKPerformed By: #### CMP, LIPID, URIC #### [facility] [address] [place] [address] Dr. April Baezesterol [Mass/Vol]167 mg/dLNormal<=200The [facility] Comment on above:Performed By: #### CMP, LIPID, URIC #### [facility] [address] [place] [address] Dr. April Baezesterol in HDL [Mass/Vol]36 mg/dLCritically wxy76-93Rut [facility] HospitalComment on above:Performed By: #### CMP, LIPID, URIC #### [facility] [address] [place] [address] Dr. April Baezesterol in LDL [Mass/Vol]97.0 mg/dLThe Jewish HospitalComment on above:Performed By: #### CMP, LIPID, URIC #### [facility] [address] [place] [address] Dr. April Murrieta.total/Cholesterol in HDL [Mass ratio]4.6 {ratio} NormalThe [facility] HospitalComment on above:Performed By: #### CMP, LIPID, URIC #### [facility] [address] [place] [address] Dr. April Craig NORMAL> or = 60 mg/dl - LOW CARDIOVASCULAR RISK <40 mg/dl - HIGH CARDIOVASCULAR RISKThe Jewish HospitalCommclaren thumb region on above:Performed By: #### CMP, LIPID, URIC #### [facility] [address] [place] [address] Dr. April Ocampo CALC NORMALSEE BELOWThe Jewish HospitalCommclaren thumb region on above:Result Comment: <100 mg/dl OPTIMAL 100 - 129 mg/dl NEAR OR ABOVE OPTIMAL 130 - 159 mg/dl BORDERLINE HIGH 160 - 189 mg/dl HIGH >190 mg/dl VERY HIGH Performed By: #### CMP, LIPID, URIC #### [facility] [address] [place] [address] Dr. April WoodsTriglyceride [Mass/Vol]170 mg/dLCritically high<=150The [facility] on above:Performed By: #### CMP, LIPID, URIC #### [facility] [address] [place] [address] Dr. April BrooksLDL CALC34.0 mg/dLNoGalion HospitalCommclaren thumb region on above: Performed By: #### CMP, LIPID, URIC #### [facility] [address] [place] [address] Dr. April De Leon 14(COMP METB)on 27-94-4676Nerizyg [Mass/Vol]3.7 g/dLNormal 3.4-5.0[facility] on above:Performed By: #### CMP, LIPID, URIC #### [facility] [address] [place] [address] Dr. April WoodsAlbumin/Globulin [Mass ratio]0.9 {ratio}NormalThe [facility] on above:Performed By: #### CMP, LIPID, URIC #### [facility] [address] [place] [address] Dr. April Honeycutt [Catalytic activity/Vol]80 U/JEqdyja84-014Ssh [facility] on above:Performed By: #### CMP, LIPID, URIC #### [facility] [address] [place] [address] Dr. April BlandT [Catalytic activity/Vol]41 U/TOexxnl68-86Ktf [facility] HospitalComment on above:Performed By: #### CMP, LIPID, URIC #### [facility] [address] [address] [address] April WoodsAnion gap [Moles/Vol]8.7 mmol/LNormalThe [facility] HospitalComment on above:Performed By: #### CMP, LIPID, URIC #### [facility] [address] [address] [address] April WoodsAST [Catalytic activity/Vol]19 U/EEvflsw10-92Gbz [facility] HospitalComment on above:Performed By: #### CMP, LIPID, URIC #### [facility] [address] [place] [address] Dr. April WoodsBilirubin [Mass/Vol]0.4 mg/dLNormal0.2-1.0The [facility] Comment on above:Performed By: #### CMP, LIPID, URIC #### [facility] [address] [place] [address] Dr. April WoodsCalcium [Mass/Vol]9.6 mg/dLNormal8.5-10.1The [facility] Comment on above:Performed By: #### CMP, LIPID, URIC #### [facility] [address] [place] [address] Dr. April WoodsChloride [Moles/Vol]101 mmol/EPdaboi65-561Hpr [facility] Comment on above:Performed By: #### CMP, LIPID, URIC #### [facility] [address] [place] [address] Dr. April WoodsCO2 [Moles/Vol]28.7 mmol/HKeaedo02.0-32.0The [facility] Comment on above:Performed By: #### CMP, LIPID, URIC #### [facility] [address] [place] [address] Dr. April WoodsCreatinine [Mass/Vol]0.95 mg/dLNormal0.70-1.30The [facility] HospitalComment on above:Performed By: #### CMP, LIPID, URIC #### [facility] [address] [address] [address] April RoseGFR-AF ENGLISH>60Normal>=60The [facility] HospitalComment on above:Performed By: #### CMP, LIPID, URIC #### [facility] [address] [address] [address] April RoseGFR-NON AF ENGLISH>60Normal>=60The [facility] HospitalComment on above:Performed By: #### CMP, LIPID, URIC #### [facility] [address] [address] [address] April WoodsGlobulin (S) [Mass/Vol]4.1 g/dLNormalThe [facility] HospitalComment on above:Performed By: #### CMP, LIPID, URIC #### [facility] [address] [place] [address] Dr. April WoodsGlucose [Mass/Vol]144 mg/dLCritically eqoi23-029Qbz [facility] HospitalComment on above:Performed By: #### CMP, LIPID, URIC #### [facility] [address] [address] [address] April WoodsPotassium [Moles/Vol]4.4 mmol/LNormal3.5-5.1The [facility] Comment on above:Performed By: #### CMP, LIPID, URIC #### [facility] [address] [address] [address] April WoodsProtein [Mass/Vol]7.8 g/dLNormal6.4-8.2The [facility] Comment on above:Performed By: #### CMP, LIPID, URIC #### [facility] [address] [address] [address] April WoodsSodium [Moles/Vol]134 mmol/LCritically pmt287-292Pgl [facility] HospitalComment on above:Performed By: #### CMP, LIPID, URIC #### [facility] [address] [address] [address] April WoodsUrea nitrogen [Mass/Vol]21.0 mg/dLCritically high7.0-18.0The [facility] HospitalComment on above:Performed By: #### CMP, LIPID, URIC #### [facility] [address] [address] [address] April WoodsUrea nitrogen/Creatinine [Mass ratio]22.1 mg/mgNormalThe [facility] HospitalComment on above:Performed By: #### CMP, LIPID, URIC #### [facility] [address] [address] [address] April WoodsURIC ACID SERUMon 15-13-8050Yzkxe [Mass/Vol]4.6 mg/dLNormal 3.5-7.2The [facility] HospitalComment on above:Performed By: #### CMP, LIPID, URIC #### [facility] [address] [address] [address] April Woods Vital Signs Date TimeVital SignValuePerforming VfqhmwheuPzoubvaf26-98-3081 08:49-0500Blood Pressure LocationMichael NILL [phone]-YngahSycamore Medical Center 11-16-2022 08:49-0500Diastolic blood pwarkudr40 mm[Hg]Eric NILL [phone]-RbwjdSycamore Medical Center 11-16-2022 08:49-0500Heart rate84 /minMichael NILL [phone]-SvrgfSycamore Medical Center 11-16-2022 08:49-0500Respiratory rate16 /minMichael NILL [phone]-AzqunSycamore Medical Center 11-16-2022 08:49-0500Systolic blood mm[Hg]Eric NILL [phone]-TtcdtSycamore Medical Center Encounters Encounter DateEncounter TypeCare ProviderFacilityStart: 12-27-2022 End: 48-48-6453allvybqhifUY FERNIE GARZA .Facility:R8Azkbf: 12-11-2022 End: 42-68-1850eemduqoscyMcujolo R NILLFacility: tart: 12-11-2022 End: 31-35-6490Zcmhpjh encounter procedureMichael R NILL General Surgery Nill/Said [place] Start: 12-04-2022 End: 79-16-8363kbentomahoDzycrnp R NILLFacility: tart: 12-04-2022 End: 48-81-3579Jenddpv encounter procedureMichael R NILL General Surgery Nill/Said [place] Start: 11-16-2022 End: 29-96-7802zjjqdylopcPkvlnqf R NILLFacility: kStart: 11-16-2022 End: 59-40-9355Litnsnp encounter procedureMichael R NILL [phone]-PpfquMer[facility] Health – [facility] [place] Start: 10-41-7125vrqgrjogrdRatlggh R NILLFacility:[facility] CenterkStart: 93-37-1352dqlbouqontWcmrqah NILLFacility:[facility] Centercharlietart: 10-31-2022 End: 37-69-8342qpcjzxqglxUY FERNIE GARZA .Facility:M9Zkosz: 08-04-2022 End: 41-84-9152rkfgncujeyWB DOUGLAS HOY .Facility:H1 Procedures DateProcedureProcedure DetailPerforming ClinicianStart: 50-34-6282WGX screening DR FERNIE GARZA .Comment on above:Performed By: #### PSASC ####[facility] [address] [place], [place] [address]DrJannet WoodsRepair of left inguinal herniaMichael NILL Immunizations Immunization DateImmunizationNotesCare CdpkohtmXpjekksx00-03-4014qousoxqtl virus vaccine, unspecified formulationMichael NILL General Surgery Psrbqhrb75-87-9086MSQB-NpU-2 (COVID-19) mRNA-1273 vaccineMichael NILL [facility] Surgery BernComment on above:Result Comment: 2022-11-09: OIA4173-28-8015RSSA-HlU-8 (COVID-19) mRNA-1273 vaccine Eric NILL General Surgery Yrvzwgwb79-07-9747LTVO-LdK-7 (COVID-19) mRNA-1273 vaccineMichael NILL [facility] [place] Payers DatePayer CategoryPayerPolicy [id number] 1958Unknown [id number] [id number] [id number] [id number] [id number] Social History DateTypeDetailFacilityStart: 92-82-8996Vddmczs smoking statusNever smoked tobacco (finding)[facility] General Surgery [place]walkTobacco smoking statusNeverMercy Health – [facility] Hospital General Surgery [place]walkSex Assigned At BirthMaleFBarnesville Hospital Center Functional Status FchlYrhaazwirfMdhieiZefdfzgn52-51-8865Ruvkwbymye StatusN/AFParkview Health [facility] [place] Clinical Note 11-16-2022 Note Date & TnedQpedHuwspzzl05-93-6579 NoteChief Complaint consultation for skin lesion HPI Staff 71 year old male presents on consultation from Dr. Garza for right face skin lesion. Reports small scaly lesion for several months. Small increase in size. Denies discomfort, bleeding or itching. History of Present Illness 71 yo male with h/o htn, DMII, hypertriglyceridemia, referred by Dr. Garza for skin lesion right cheek; present for several months, raised portion sloughs off, then grow back; no bleeding or pigmentation change; no personal or fmhx of h/o skin cancer; on baby asa, no NSAIDs; moderate sun exposure. notobacco use. Review of Systems PHQ Score Initial Depression Screen Score: 0 ROS - Provider Constitutional: no fever, no sweats, no weight loss. Eyes: no glasses, no blurred vision, no visual loss. ENMT: no dentures, no hoarseness, no swallowing difficulties, no hearing loss, no ear infection(s),no nose bleeds. Cardiovascular: normal blood pressure, no [...] in the office for definitive diagnosis and treatment;informed consent obtained. Follow-up No qualifying data available [...] 12/21/2020 Recorded SARS-CoV-2 (COVID-19) mRNA-1273 vaccine 11/24/[address] Charles HospitalComment on above:Result Comment: Electronically Signed By: Eric SOLIS MD\.br\Date and Time Signed: 11/16/22 09:31 EST Evaluation + Plan note Note Date & TypeNoteFacilityEvaluation + Plan note Future Appointments Appointment Date:12/04/2022 01:40:00 PM Scheduled Provider:Eric SOLIS MD Location:[facility] Appointment Type: Procedure 30 [facility] Evaluation + Plan note Note Date & TypeNoteFacilityEvaluation + Plan note Future Appointments Appointment Date:12/11/2022 02:00:00 PM Scheduled Provider:Eric SOLIS MD Location:[facility] Appointment Type: Established 15 [facility] [place] Hospital course Narrative Note Date & TypeNoteFacilityHospital course Narrative No data available for this section [facility] Hospital Discharge instructions Note Date & TypeNoteFacilityHospital Discharge instructions No data available for this section [facility] Progress note Note Date & TypeNoteFacilityProgress note No data available for this section [facility] Summary Purpose Family History No Family History Records FoundNo Family History Records Found Advance Directives No Advanced Directives Records FoundNo Advanced Directives Records Found Additional Source Comments Patient Care team informatio n (unrecognized section and content) Personnel Name: Fernie Garza MD Address: Address: [address] [place] [address] Personnel Name: Fernie Garza MD Address: Address: [address] [place] [address] Personnel Name: Fernie Garza MD Address: Address: [address] [place] [address]- (unrecognized sect ion and content) No Status Records FoundNo Status Records Found INFORMATION SOURCE (unrecogn ized section and content) DATE CREATED AUTHOR 12/14/[address] [facility] DATE CREATED AUTHOR AUTHOR'S ORGANIZ ATION 01/01/2023 [facility] FOR RECORDS PERTAINING TO PATIENTS [...] BE BASED ON THE PRIMARY CLINICAL RECORDS. [employer] [facility]. provides no warranty or guarantee of the accuracy or completeness of information in this document.
[2025-08-12 07:47] LABS: Hematocrit 44.3 % (42.0-54.0); Hemoglobin 14.9 g/dL (14.0-18.0); Immature Granulocytes Abs Auto 0.02 10^3/uL (0.00-0.03); Immature Granulocytes Pct Auto 0.3 % (0.0-0.5); Lymphocytes Absolute Auto 1.7 10^3/uL (1.2-3.8); Mean Corpuscular HGB Conc 33.6 g/dL (29.9-35.2); Mean Corpuscular Hemoglobin 29.6 pg (25.9-34.0); Mean Corpuscular Volume 88.1 fL (80.0-94.0); Platelet Count 296 10^3/uL (150-450); Red Blood Count 5.03 10^6/uL (4.70-6.10); White Blood Count 6.6 10^3/uL (4.0-11.0)
[2025-08-12 09:38] LABS: Alanine Aminotransferase 25 U/L (16-63); Albumin Globulin Ratio 0.9; Albumin Level 3.5 g/dL (3.4-5.0); Alkaline Phosphatase 86 U/L (46-116); Anion Gap 10.1; Aspartate Amino Transferase 9 U/L (15-37); Blood Urea Nitrogen 19.0 mg/dL (7.0-18.0); Calcium 9.0 mg/dL (8.5-10.1); Carbon Dioxide 27.1 mmol/L (21.0-32.0); Chloride 103 mmol/L (98-107); Cholesterol 208 mg/dL (<=200); Estimated GFR (African America >60 (>=60 mL/min/1.73m^2); Estimated GFR (Non-African Ame >60 (>=60 mL/min/1.73m^2); Free T3 2.50 pg/mL (2.18-3.98); Globulin 3.8 g/dL; Glucose 176 mg/dL (74-106); HDL Cholesterol 40 mg/dL (40-60); Potassium 4.2 mmol/L (3.5-5.1); Sodium 136 mmol/L (136-145); Thyroid Stimulating Hormone 2.284 uIU/mL (0.358-3.740); Total Protein 7.3 g/dL (6.4-8.2); Triglycerides 269 mg/dL (<=150); VLDL CHOLESTEROL 53.8 mg/dL
== END 2025-08-12 07:08 | disposition home or self-care (01) ==
LOC: LAB 07:09
PROVIDERS: PCP Family Medicine; Visit Provider Family Medicine
DX: G47.00 Insomnia, unspecified (principal); I10 Essential (primary) hypertension; E11.9 Type 2 diabetes mellitus without complications; K21.9 Gastro-esophageal reflux disease without esophagitis; E78.5 Hyperlipidemia, unspecified; Z12.12 Encounter for screening for malignant neoplasm of rectum; E03.9 Hypothyroidism, unspecified; Z12.5 Encounter for screening for malignant neoplasm of prostate; D50.9 Iron deficiency anemia, unspecified
CPT/HCPCS: 36415; 80053; 80061; 83036; 84436; 84443; 84481; 85025; G0103

== ENCOUNTER 2025-09-24 18:55 | Emergency (ER) | payer OTHER, SELFPAY ==
--- OUTSIDE RECORDS SUMMARY | 2024-11-19 04:15 | XMS_ITS ---
Author Organization The [facility] in [place] Address [address] [place] [address] Care Team Providers Care Adult Parole Officer Name Role Phone Dante Garza Primary Care Provider REASON FOR VISIT 3mon Encounters Encounter Location Date Provider Diagnosis [facility] [address] [place] [address] 11/19/2024 Dante Garza Plan Of Treatment Next Appt Details Provider Name:Dante Garza, 08:30:00 AM, [address] [facility], [place], [address], Progress Notes * Eber SPRINGER EDOB: [birth year] (74 yo M)Acc No.[id number]:11/19/2024 UNLOCKED PROGRESS NOTE Progress Note Patient: Michelle Eber JOYCE :?Malcom Garza ([facility]), MDDOB:1950???Age: 73 Y???Sex:MaleDate:11/19/2024Phone:[phone]:[address] [place] [address] [id number] Subjective: * Chief Complaints: * 1 . 3mon. * Medical History: Objective: * Vitals: Assessment: Plan: * Treatment: * * Electronic signature of Dante Garza MD, [id number] on 09/24/2025 at 07:21 PM EST Sign off status: PendingVisit Status:?CANC (Cancelled) * Provider: Lorena Garza (TTC)MD Date: 0 11/19/2024 Generated for Printing/Faxing/eTransmitting on:?09/24/2025 07:21 PM EST
--- OUTSIDE RECORDS SUMMARY | 2025-09-20 05:30 | XMS_ITS ---
Author Organization [facility] in [place] Address [address] [place] [address] Care Team Providers Care Manager Media Relations Name Role Phone Dante Garza Primary Care Provider Allergies Allergen (clinical drug ingredient) Drug/Non Drug Allergy documented on EMR Reaction Allergy Type Onset Date Status bees (uncoded)UnknownAllergyActive Results Component Value Reference Range Notes COVID-19, Flu A+B IH (Not ye t reviewed by provider) Interpretation: Performing Lab: Notes/Report: COVID POSITIVE FLU AnegFLU BnegControlpresent REASON FOR VISIT sick- cough, sneezing, sinus drainage, just feels blah Medications Medication SIG (Take, Route, Frequency, Duration) Notes Start Date End Date Status Lancets 30G - as directed ActiveKetoconazole 2 %1 application Externally Twice a day; Duration: 14 3ActivemetFORMIN HCl 500 MGTAKE 2 TABLETS BY MOUTH TWICE A DAY; Duration: 90ActiveOzempic (1 MG/DOSE) 4 MG/3ML1 mg Subcutaneous weekly; Duration: 28 days5ActiveOneTouch Verio -USE ONE STRIP DAILY TO MONITOR GLUCOSE; Duration: 90ActiveGlimepiride 4 MGTAKE 2 TABLETS BY MOUTH EVERY DAY; Duration: 90ActiveFreeStyle Lite Test -USE TO TEST BLOOD SUGAR ONCE DAILY DX E11.9; Duration: 90ActiveJanuvia 100 MGTAKE 1 TABLET BY MOUTH EVERY DAY; Duration: 90ActiveIrbesartan 300 MGTAKE 1 TABLET BY MOUTH EVERY DAY; Duration: 90ActiveFarxiga 10 MGTAKE 1 TABLET BY MOUTH EVERY DAY; Duration: 90 daysActive Aspirin 81 81 MG1 tablet Orally Once a dayActiveAzithromycin 250 MG2 tabs today then 1 tab Orally daily; Duration: 5 days5ActiveBlood Glucose Monitor System w/Device test blood sugar daily; Duration: 365 days insurance covers one touch verio ActivedexAMETHasone 6 MG1 tablet Orally daily; Duration: 5 days5Active Colesevelam HCl 625 MGTAKE 2 TABLETS BY MOUTH ONCE A DAY WITH A MEAL; Duration: 90ActiveSildenafil Citrate 100 MGTAKE 1 TABLET BY MOUTH ONCE A DAY NEEDED; Duration: 30ActivePaxlovid (300/100) 20 x 150 MG & 10 x 100MG3 tablets Orally Twice a day; Duration: 5 days5ActivePantoprazole Sodium 40 MGTAKE 1 TABLET BY MOUTH EVERY DAY IN THE EVENING; Duration: 30Active Social History Tobacco Use: Social History Observation Description Date Details (start date - stop date) Never Smoker NA - NA Tobacco Use/Smoking Question Answer Notes Patient is a nonsmoker Vital Signs Weight 258.8 lbs 09/20/2025 Height 70 in 09/20/2025 Blood pressure systolic 132 mm Hg 09/20/20 25 Blood pressure diastolic 72 mm Hg 025 Temperature 98.4 degrees Fahrenheit 09/20/20 25 BMI 37.13 kg/m2 09/20/2025 Encounters Encounter Location Date Provider Diagnosis [facility], [place] [address] [place] [address] 09/20/2025 Dante Hoy Body aches R52 ; COVID-19 U07.1 ; Cough R05.9 ; Acute non-recurrent sinusitis, unspecified location J01.90 and Nasal congestion R09.81 Assessments Encounter Date Diagnosis (ICD Code) Assessment Notes Treatment Notes Treatment Clinical Notes Section Notes 09/20/2025 Body aches (ICD-10 - R52) 5COVID-19 (ICD-10 - U07.1)5Cough (ICD-10 - R05.9)09/20/2025 Acute non-recurrent sinusitis, unspecified location (ICD-10 - J01.90)Rest and drink more liquids, especially water. You may use a humidifier or vaporizer to help keep the drainage moist. Yljp-iji-cruekqv Nasal Saline may help the stuffy and runny nose. Use Ibuprofen and or Tylenol as needed for fever, chills, body aches or pain. Children 5 years old should not be given ehcb-ouu-bygjxou cough and cold medications such as guaifenesin and dextromethorphan. If you're over age 5, you may try wwvq-fyd-vnwdqrg cold medications such as guaifenesin and dextromethorphan, [...] if symptoms do not improve within 3-5 days09/20/2025Nasal congestion (ICD-10 - R09.81) Plan Of Treatment Medication Medication Name Sig Start Date Stop Date Notes Azithromycin 250 MG 2 tabs today then 1 tab Orally daily; Duration: 5 days 09/20/2025 dexAMETHasone 6 MG1 tablet Orally daily; Duration: 5 days09/20/2025Paxlovid (300/100) 20 x 150 MG & 10 x 100MG3 tablets Orally Twice a day; Duration: 5 days 09/20/2025Treatment Notes Assessment Notes Acute non-recurrent sinusiti s, unspecified location Rest and drink more liquids, especially water. You may use a humidifier or vaporizer to help keep the drainage moist. Ytiw-see-hyzdgsx Nasal Saline may help the stuffy and runny nose. Use Ibuprofen and or Tylenol as needed for fever, chills, body aches or pain. Children 5 years old should not be given xoai-ayc-amyunkw cough and cold medications such as guaifenesin and dextromethorphan. If you're over age 5, you may try gefh-wwn-ilnxqso cold medications such as guaifenesin and dextromethorphan, or multi-symptom cold reliever such as Dayquil to help reduce the symptoms. Antibiotics have been prescribed. You should take these until completed and follow the directions. Antibiotics can sometimes cause upset stomach, and in rare cases, serious allergic reactions or serious gastrointestinal problems. If you start having severe abdominal pain, severe vomiting, or bloody diarrhea, you should be reevaluated by your physician or urgent care immediately. Follow up with your Primary Care Provider or return to clinic if symptoms do not improve within 3-5 days Pending Test Test Name Order Date COVID-19, Flu A+B IH 09/20/2025 Next Appt Details Follow Up: 3-5 days if not i mproving, Reason: Provider Name:Dante Garza, 08:30:00 AM, [address] [facility], [place], [address], Progress Notes * Eber SPRINGER EDOB: [birth year] (74 yo M)Acc No.[id number]:09/20/2025 Progress Note Patient: Eber BRADLEY :?Malcom Garza ([facility]), MDDOB:1950???Age: 74 Y???Sex:MaleDate:09/20/2025Phone:[phone]:[address] [place], [place]-[address]Check In:10:18 AM ESTCheck Out:11:38 AM EST Subjective: * Chief Complaints: * S ick- cough, sneezing, sinus drainage, just feels blah * HPI: ???Sinusitis:?The patient complains of symptoms of sinus infection. The symptoms have been present for 3 days. The symptoms are moderate. Symptomatic treatment has included OTC medication. Associated symptoms include headache, facial pain, runny nose, nasal congestion. * ROS: ???Skin:?Rash?denies.?ENT:?Comments?See HPI for details.?Cardiovascular:?Edema?denies.?Palpitations?denies.?Respiratory:?Chest pain?denies.?Cough?denies.?Wheezing denies.?Gastrointestinal:?Abdominal pain?denies.?Nausea?denies.?Vomiting?denies.? 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, unspecified eye Modified On:01/26/2023 Status:tpjnbbwdyO88Dhbcziizmkdz Modified On:11/12/2023 Status:pydpnsykxW70.00Insomnia Modified On:01/26/2023 Status:miiecauywU86.1Hypertriglyceridemia Modified On:11/12/2023 Status:zsdrszgbhQ79.90Acute sinusitis Modified On:01/26/2023 Status:oyjdvulapT31.00Well adult Modified On:01/26/2023 Status:feqrbvtjdV64.819Vitreous detachment Modified On:01/26/2023 Status:lvyjrieyrW90.3Over weight Modified On:01/26/2023 Status:ucubroyiuG49.9Impotence Modified On:01/26/2023 Status:sbcrisiajV82.9Nevus Modified On:01/26/2023 Status:gthvqyofjF67.10Vitreous hemorrhage Modified On:01/26/2023 Status:cwyafkdfuO62.9Diabetes mellitus type II, non insulin dependent Modified On:11/12/2023 Status:oontxlbqcE95.1COVID-19 virus infection Modified On:01/26/2023 Status:zyzdiaoafO46.9Gastro-esophageal reflux disease without esophagitis Modified On:01/30/2023 Status:confirmed * Medical History: * Surgical History: H ernia Repair * Hospitalization/Major Diagno stic Procedure: D enies Past Hospitalization * Family History: F ather: , diagnosed with Cancer, Heart Disease. M other: alive. B rother(s): alive. * Social History: ???Tobacco Use:?Tobacco Use/Smoking?Patient [...] ONE STRIP DAILY TO MONITOR GLUCOSE Ozempic (1 MG/DOSE)(Semaglutide (1 MG/DOSE)) 4 MG/3ML Solution Pen-injector 1 mg Subcutaneous weekly Pantoprazole Sodium 40 MG Tablet Delayed Release TAKE 1 TABLET BY MOUTH EVERY DAY IN THE EVENING Sildenafil Citrate 100 MG Tablet TAKE 1 TABLET BY MOUTH ONCE A DAY NEEDED Medication List reviewed and reconciled with the patientTaking Aspirin 81(Aspirin) 81 MG Tablet Chewable 1 [...] STRIP DAILY TO MONITOR GLUCOSE Taking Ozempic (1 MG/DOSE)(Semaglutide (1 MG/DOSE)) 4 MG/3ML Solution Pen-injector 1 mg Subcutaneous weekly Taking Pantoprazole Sodium 40 MG Tablet Delayed Release TAKE 1 TABLET BY MOUTH EVERY DAY IN THE EVENING Taking Sildenafil Citrate 100 MG Tablet TAKE 1 TABLET BY MOUTH ONCE A DAY NEEDED Medication List reviewed and reconciled with the patient * Allergies: tyrese weir[Allergies Verified] Objective: * Vitals: W t:258.8lbs, Ht: 70 in, BP:132/72mm Hg, Temp:98.4F, BMI:37.13Index, Ht-cm: 177.8 cm, Wt-k.39 kg. * Examination: ???General Examination: ?GENERAL APPEARANCE:? in no acute distress, well developed,well nourished.?ENT:? ear and nose external appearance normal, tympanic membranes clear bilaterally, facial tenderness to palpation over sinuses.?EYES:? pupils equal, round, reactive to light and accomodations.?ORAL CAVITY:? mucosa moist.?NECK:?neck supple, full range of motion, no cervical lymphadenopathy.?LUNGS:?clear to auscultation bilaterally.?CARDIO:? no murmurs, regular rate and rhythm, S1, S2 normal.?ABDOMEN:? soft, nontender , not distended, bowel sounds are active.?SKIN:? no suspicious lesions, warm and dry.?EXTREMITIES:? no clubbing, cyanosis, or edema.?NEUROLOGIC:? nonfocal, motor strength of upper/lower extremities intact , sensory exam intact.? Assessment: * Assessment: 1.?COVID-19 - U07.1 (Primary)???2.?Body aches - R52???3. Cough - R05.9???4.?Acute non-recurrent sinusitis, unspecified location - J01.9 0???5.?Nasal congestion - R09.81??? Plan: * Treatment: Start Paxlovid (300/100) Tablet Therapy Pack, 20 x 150 MG & 10 x 100MG, 3 tablets, Orally, Twice a day, 5 days, 30, Refills 0;?Start Azithromycin Tablet, 250 MG, 2 tabs today then 1 tab, Orally, daily, 5 days, 6, Refills 0;?Start dexAMETHasone Tablet, 6 MG, 1 tablet, Orally, daily, 5 days, 5 Tablet.?LAB: COVID-19, Flu A+B IH (Collection Date & Time - 09/20/2025)2.?Acute non-recurrent sinusitis, unspecified location? Notes:Rest and drink more liquids, especially water. You may use a humidifier or vaporizer to help keep the drainage moist. Cpym-hev-boiwisc Nasal Saline may help the stuffy and runny nose. Use Ibuprofen and or Tylenol as needed for fever, chills, body aches or pain. Children 5 years old should notbe given cscs-yok-kpszxil cough and cold medications such as guaifenesin and dextromethorphan. If you're over age 5, you may try emja-oox-qrdmnhe cold medications such as guaifenesin and dextromethorphan, or multi-symptom cold reliever such as Dayquil to help reduce the symptoms. Antibiotics have been prescribed. You should take these until completed and follow the directions. Antibiotics can sometimes cause upset stomach, and in rare cases, serious allergic reactions or serious gastrointestinal problems. If you start having severe abdominal pain, severe vomiting, or bloody diarrhea, you should be reevaluated by your physician or urgent care immediately. Follow up with your Primary Care Provider or return to clinic if symptoms do not improve within 3-5 days?? * Labs: * L ab: COVID-19, Flu A+B IH (Collection Date & Time - 09/20/2025) ?ValueReference Range?COVIDPOSITIVE * F HUONG A neg * F HUONG B neg * C ontrol present * Procedure Codes: 8 7636 SARSCOV2 & INF A&B AMP PRB, Modifiers: QW 3078F DIAST BP < 80 MM [id number] SYST BP GE 130 - 139MM HG * Preventive Medicine: ??Screenings/Counseling:?BMI ACTION PLAN?Above Normal BMI Follow-up?Dietary management education, guidance, and counseling * Follow Up: 3 -5 days if not improving * * Sign off status: CompletedVisit Status:?CHK (Check Out) true * Provider: Lorena Garza ([facility])MD Date: 11/21/2024 Generated for Printing/Faxing/eTransmitting on:?09/24/2025 07:21 PM EST History and Physical Notes * Examination CategorySub-CategoryDetailNotesCategory NotesGeneral ExaminationGENERAL APPEARANCE:in no acute distress, well developed, well nourishedENT:ear and nose external appearance normal, tympanic membranes clear bilaterally, facial tenderness topalpation over sinusesEYES:pupils equal, round, reactive to light and accomodationsNECK:neck supple, full range of motion, no cervical lymphadenopathyCARDIO:no murmurs, regular rate and rhythm, S1, S2 normalLUNGS: clear to auscultation bilaterallyABDOMEN:soft, nontender , not distended, bowel sounds are activeNEUROLOGIC:nonfocal, motor strength of upper/lower extremities intact , sensory exam intactSKIN:no suspicious lesions, warm and dryEXTREMITIES: no clubbing, cyanosis, or edemaORAL CAVITY:mucosa moist
[2025-09-24 18:58] VITALS: BP 180/88; PULSE 87; TEMP 36.6; O2SAT 97; BMI 35.7
--- NOTE | 2025-09-24 19:19 | ED.GENADUL1 ---
HPI HPI - General Adult General Chief complaint: Recheck/Abnormal Lab/Rx Stated complaint: POSS HIGH SUGAR Time Seen by Provider: 09/24/25 19:08 Source: patient Mode of arrival: walk-in History of Present Illness HPI narrative: cc -high blood sugar Psv-jjzvmxd-apkosnwlo diabetic presents with elevated blood sugar today. He told me that he tested positive for COVID and 4 days ago was prescribed antibiotics, Paxlovid, oral steroids by his primary care provider, Dr. Garza. The patient takes Januvia daily as well as metformin twice daily and glimepiride daily -along with getting a once a week injection of semaglutide. He reported a blood sugar at home of 467 but this was about 1 hour after eating dinner tonight. That has been the highest it has been over the last couple of days. In the ED on presentation his glucose is 484. The patient admits to some associated generalized weakness and he describes as a tipsy dose or slight dizziness. No visual change. No chest pain or shortness of breath. His cough has rapidly improved over the last 2 days and he has no GI or symptoms. He told me that he has never taken insulin. Related Data Home Medications ?Medication ?Instructions ?Recorded ?Confirmed colesevelam 625 mg tablet 1,250 mg PO DAILY 09/24/25 09/24/25 dapagliflozin propanediol 10 mg 10 mg PO DAILY 09/24/25 09/24/25 tablet (Farxiga) glimepiride 4 mg tablet 8 mg PO DAILY 09/24/25 09/24/25 irbesartan 300 mg tablet 300 mg PO DAILY 09/24/25 09/24/25 metformin 500 mg tablet 1,000 mg PO BID 09/24/25 09/24/25 pantoprazole 40 mg tablet,delayed 40 mg PO QPM 09/24/25 09/24/25 release semaglutide 1 mg/dose (4 mg/3 mL) 1 mg subcut QWEEK 09/24/25 09/24/25 subcutaneous pen injector (Ozempic) sildenafil 100 mg tablet 100 mg PO DAILY PRN sexual activity 09/24/25 09/24/25 sitagliptin phosphate 100 mg 100 mg PO DAILY 09/24/25 09/24/25 tablet (Januvia) Allergies Allergy/AdvReac Type Severity Reaction Status Date / Time No Known Drug Allergies Allergy Verified 09/24/25 19:04 [facility] Medical History (Updated 09/24/25 @ 19:22 by Jason Benito) Diabetes ?E11.9 - Type 2 diabetes mellitus without complications (ICD-10) Hypertension ?I10 - Essential (primary) hypertension (ICD-10) Social History Little interest or pleasure in doing things: not at all Feeling down, depressed, or hopeless: not at all Exam Narrative Exam Narrative: Nurses notes and vital signs reviewed and patient is not hypoxic. afebrile General: Well-appearing obese male in no apparent distress. Skin: Warm, dry, no pallor noted. No rash. Head: Normocephalic, atraumatic. Neck: Supple, non-tender. No cervical lymphadenopathy. No meningismus. Eye: Pupils are equal, round and EOMI. No scleral icterus. Ears, Nose, Mouth, and Throat: Oral mucosa is slightly dry. Cardiovascular: Regular Rate and Rhythm without murmur, gallop or rub. Respiratory: No accessory muscle use or respiratory distress. Lungs are clear to auscultation, no wheezing, rales or rhonchi Musculoskeletal: normal ROM, no calf or popliteal tenderness, no lower extremity edema/swelling GI: Abdomen is soft, non-distended. Normal bowel sounds. No tenderness to palpation. No rebound, guarding, or rigidity noted. Neurological: A&O x4. No cranial nerve dysfunction observed. No truncal ataxia. Moves all extremities. Sensation intact. Psychiatric: Cooperative and interactive. Normal mood and affect. Constitutional Vital Signs, click to edit/add: Last Vital Signs Temp 97.9 F 09/24/25 18:58 Pulse 80 09/24/25 19:45 Resp 20 09/24/25 19:45 BP 135/72 09/24/25 19:45 Pulse Ox 96 09/24/25 19:45 O2 Del Method Room Air 09/24/25 19:45 Course Vital Signs Vital signs: Vital Signs Temperature 97.9 F 09/24/25 18:58 Pulse Rate 87 09/24/25 18:58 Respiratory Rate 18 09/24/25 18:58 Blood Pressure 180/88 H 09/24/25 18:58 Pulse Oximetry 97 09/24/25 18:58 Oxygen Delivery Method Room Air 09/24/25 18:58 Temperature 97.9 F 09/24/25 18:58 Pulse Rate 80 09/24/25 19:45 Respiratory Rate 20 09/24/25 19:45 Blood Pressure 135/72 09/24/25 19:45 Pulse Oximetry 96 09/24/25 19:45 Oxygen Delivery Method Room Air 09/24/25 19:45 Medical Decision Making MDM Narrative Medical decision making narrative: Peripheral IV ordered to be established as a blood could be drawn and sent for testing and the patient could receive 1 L of normal saline IV fluid. He is also ordered to receive 10 units of regular insulin subcutaneously. Glucose on blood draw = 548. recheck about one hour after SQ regular insulin was 451. He felt better after receiving a liter of NS IVF. He is done taking his steroids - we discussed the importance of keeping well hydrated and caution with his daily carbohydrate intake. He will continue to monitor his glucose at home and return to the ED if necessary. Otherwise he can see Dr Garza for follow-up. Lab Data Lab results reviewed: Yes I reviewed the patient's lab results Labs: Lab Results 09/24/25 09/24/25 09/24/25 Range/Units 19:01 19:25 19:50 WBC 10.1 (4.0-11.0) 10^3/uL RBC 5.07 (4.70-6.10) 10^6/uL Hgb 15.0 (14.0-18.0) g/dL Hct 44.4 (42.0-54.0) % MCV 87.6 (80.0-94.0) fL MCH 29.6 (25.9-34.0) pg MCHC 33.8 (29.9-35.2) g/dL RDW 13.2 (11.0-15.0) % Plt Count 343 (150-450) 10^3/uL MPV 10.0 (9.5-13.5) fL Neut % (Auto) 83.4 H (43.0-75.0) % Lymph % (Auto) 10.0 L (20.5-60.0) % [place] % (Auto) 4.9 (1.7-12.0) % Eos % (Auto) 0.0 L (0.9-7.0) % Baso % (Auto) 0.2 (0.2-2.0) % Neut # (Auto) 8.4 H (1.4-6.5) 10^3/uL Lymph # (Auto) 1.0 L (1.2-3.8) 10^3/uL [place] # (Auto) 0.5 (0.3-0.8) 10^3/uL Eos # (Auto) 0.0 (0.0-0.7) 10^3/uL Baso # (Auto) 0.0 (0.0-0.1) 10^3/uL Abs Immat Gran (auto) 0.15 H (0.00-0.03) 10^3/uL Imm/Tot Granulo (auto) 1.5 H (0.0-0.5) % Sodium 129 L (136-145) mmol/L Potassium 5.3 H (3.5-5.1) mmol/L Chloride 95 L (98-107) mmol/L Carbon Dioxide 24.5 (21.0-32.0) mmol/L Anion Gap 14.8 BUN 37.0 H (7.0-18.0) mg/dL Creatinine 1.41 H (0.70-1.30) mg/dL Est GFR ( Amer) 60 (>=60 mL/min/1.73m^2) Est GFR (Non-Af Amer) 49 L (>=60 mL/min/1.73m^2) BUN/Creatinine Ratio 26.2 Glucose 548 H* (74-106) mg/dL Calcium 9.2 (8.5-10.1) mg/dL Total Bilirubin 0.4 (0.2-1.0) mg/dL AST 9 L (15-37) U/L ALT 20 (16-63) U/L Alkaline Phosphatase 86 (46-116) U/L Total Protein 7.2 (6.4-8.2) g/dL Albumin 3.3 L (3.4-5.0) g/dL Globulin 3.9 g/dL Albumin/Globulin Ratio 0.8 Urine Color Lt. yellow (YELLOW) Urine Clarity Clear (CLEAR) Urine pH 5.0 (5.0-9.0) Ur Specific [place] <=1.005 A (1.005-1.025) Urine Protein Negative (NEG/TRACE) mg/dL Urine Glucose (UA) >=1000 A (NEGATIVE) mg/dL Urine Ketones Trace A (NEGATIVE) mg/dL Urine Occult Blood Negative (NEGATIVE) Urine Nitrite Negative (NEGATIVE) Urine Bilirubin Negative (NEGATIVE) Urine Urobilinogen 0.2 (0.2-1.0) EU/dL Ur Leukocyte Esterase Negative (NEGATIVE) POC Glucose 484 H (74-106) mg/dL 09/24/25 Range/Units 20:29 WBC (4.0-11.0) 10^3/uL RBC (4.70-6.10) 10^6/uL Hgb (14.0-18.0) g/dL Hct (42.0-54.0) % MCV (80.0-94.0) fL MCH (25.9-34.0) pg MCHC (29.9-35.2) g/dL RDW (11.0-15.0) % Plt Count (150-450) 10^3/uL MPV (9.5-13.5) fL Neut % (Auto) (43.0-75.0) % Lymph % (Auto) (20.5-60.0) % [place] % (Auto) (1.7-12.0) % Eos % (Auto) (0.9-7.0) % Baso % (Auto) (0.2-2.0) % Neut # (Auto) (1.4-6.5) 10^3/uL Lymph # (Auto) (1.2-3.8) 10^3/uL [place] # (Auto) (0.3-0.8) 10^3/uL Eos # (Auto) (0.0-0.7) 10^3/uL Baso # (Auto) (0.0-0.1) 10^3/uL Abs Immat Gran (auto) (0.00-0.03) 10^3/uL Imm/Tot Granulo (auto) (0.0-0.5) % Sodium (136-145) mmol/L Potassium (3.5-5.1) mmol/L Chloride (98-107) mmol/L Carbon Dioxide (21.0-32.0) mmol/L Anion Gap BUN (7.0-18.0) mg/dL Creatinine (0.70-1.30) mg/dL Est GFR ( Amer) (>=60 mL/min/1.73m^2) Est GFR (Non-Af Amer) (>=60 mL/min/1.73m^2) BUN/Creatinine Ratio Glucose (74-106) mg/dL Calcium (8.5-10.1) mg/dL Total Bilirubin (0.2-1.0) mg/dL AST (15-37) U/L ALT (16-63) U/L Alkaline Phosphatase (46-116) U/L Total Protein (6.4-8.2) g/dL Albumin (3.4-5.0) g/dL Globulin g/dL Albumin/Globulin Ratio Urine Color (YELLOW) Urine Clarity (CLEAR) Urine pH (5.0-9.0) Ur Specific [place] (1.005-1.025) Urine Protein (NEG/TRACE) mg/dL Urine Glucose (UA) (NEGATIVE) mg/dL Urine Ketones (NEGATIVE) mg/dL Urine Occult Blood (NEGATIVE) Urine Nitrite (NEGATIVE) Urine Bilirubin (NEGATIVE) Urine Urobilinogen (0.2-1.0) EU/dL Ur Leukocyte Esterase (NEGATIVE) POC Glucose 451 H (74-106) mg/dL Discharge Plan Discharge Chief Complaint: Recheck/Abnormal Lab/Rx Clinical Impression: Acute hyperglycemia, Diabetes mellitus Patient Disposition: Home, Self-Care Time of Disposition Decision: 20:39 Prescriptions / Home Meds: No Action colesevelam 625 mg tablet 1,250 mg PO DAILY dapagliflozin propanediol [Farxiga] 10 mg tablet 10 mg PO DAILY glimepiride 4 mg tablet 8 mg PO DAILY irbesartan 300 mg tablet 300 mg PO DAILY metformin 500 mg tablet 1,000 mg PO BID pantoprazole 40 mg tablet,delayed release (DR/EC) 40 mg PO QPM Ozempic 1 mg/dose (4 mg/3 mL) pen injector 1 mg SUBCUT QWEEK sildenafil 100 mg tablet 100 mg PO DAILY PRN (Reason: sexual activity) Januvia 100 mg tablet 100 mg PO DAILY Print Language: Andorran Instructions: Diabetic Hyperglycemia (ED), Diabetes and Nutrition (ED) Referrals: Malcom Garza MD [Primary Care Provider, Family Practice] - 1 week
--- OUTSIDE RECORDS SUMMARY | 2025-09-24 19:21 | XMS_ITS | CCD ---
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 Name Role Phone Fernie Garza Primary Care [...] [No Known Medication Allergies]Propensity to adverse reactions (disorder)[facility] Repository Medications Current Medications MedicationDrug Class(es)DatesSig (Normalized)Sig (Original)aspirin 81 mg chewable tablet (3 sources)Platelet Aggregation Inhibitor, Nonsteroidal Anti-inflammatory Drug Start: 91-87-0466tzdrzba 81 mg Chew Tab 81 mg = 1 tab(s), Chewed, Daily, Refills(s) 0 Start Date: 11/09/22 Status: Orderedcolesevelam hydrochloride 625 mg oral tablet (3 sources)Bile Acid SequestrantStart: 65-74-6528gjbt 1 tablet by mouth four times dailyWelchol 625 mg Tab 625 mg = 1 tab(s), Oral, QID, Refills(s) 0 Start Date: 11/09/22 Status: Ordereddapagliflozin 5 mg oral tablet (3 sources)Sodium-Glucose Cotransporter 2 InhibitorStart: 07-44-2939oqtz 1 tablet by mouth once dailyFarxiga 5 mg oral tablet 5 mg = 1 tab(s), Oral, Daily, Refills(s) 0 Start Date: 11/09/22 Status: Orderedglimepiride 4 mg oral tablet (3 sources)SulfonylureaStart: 32-11-9653suod 1 tablet by mouth once daily glimepiride 4 mg Tab 4 mg = 1 tab(s), Oral, Daily, Refills(s) 0 Start Date: 11/09/22 Status: Orderedirbesartan 300 mg oral tablet (3 sources)Angiotensin 2 Receptor BlockerStart: 60-60-3621ibsq 1 tablet by mouth once dailyirbesartan 300 mg Tab 300 mg = 1 tab(s), Oral, Daily, Refills(s) 0 Start Date: 11/09/22 Status: OrderedmetFORMIN hydrochloride 500 mg oral tablet (3 sources)BiguanideStart: 46-91-7437mzjn 2 tablets by mouth twice daily metformin 500 mg Tab 1,000 mg = 2 tab(s), Oral, BID, Refills(s) 0 Start Date: 11/09/22 Status: Orderedsildenafil 100 mg oral tablet (3 sources)Phosphodiesterase 5 InhibitorStart: 61-04-1038djtb 1 tablet by mouth once daily as neededsildenafil 100 mg Tab 100 mg = 1 tab(s), Oral, Daily, PRN erectile dysfunction, Refills(s) 0 Start Date: 11/09/22 Status: Ordered Problems Active Problems Problem ClassificationProblemDateDocumented DateEpisodic/ChronicAbdominal hernia (1 source)Diaphragmatic hernia without obstruction or gangrene; Translations: [DIAPH HERNIA W/O OBST/GANGRENE]Onset: 51-40-7662LyrmzfzcGhnyzfnhf pain (4 sources)Unspecified abdominal pain; Translations: [UNSPECIFIED ABDOMINAL PAIN]Onset: 57-31-6385FovnrthsQonriedo mellitus without complication (7 sources)Diabetes mellitus; Translations: [Type 2 diabetes mellitus without complications]Onset: 071788-04-9714NmeyioeDyqzoktzp of lipid metabolism (4 sources)Hypertriglyceridemia; Translations: [Hyperlipidemia, unspecified] Onset: 894977-64-0366RukxgvjWdpinjkia hypertension (7 sources)Essential hypertension; Translations: [Hypertensive disorder]Onset: 091320-55-8166LrinxuwLjnzgf and vomiting (1 source)Nausea with vomiting, unspecified; Translations: [NAUSEA WITH VOMITING UNSPECIFIED]Onset: 20-32-3611FuqoulhiRswdqdech of unspecified nature or uncertain behavior (5 sources)Neoplasm of uncertain behavior of skin; Translations: [Neoplasm of uncertain behavior of skin]Onset: 60-53-8329GchphpscJqknp aftercare (1 source)Other prison (current) drug therapy; Translations: [OTH RELIGIOUS EDUCATION COORDINATOR CURRENT DRUG THERAPY]Onset: 35-67-0786TdquvuxuHjikb aftercare (1 source)halfway (current) use of oral hypoglycemic drugs; Translations: [ALF USE ORAL HYPOGLYCEMIC DX]Onset: 05-68-1144TjdihctyTxjht gastrointestinal disorders (1 source)Diarrhea, unspecified; Translations: [DIARRHEA UNSPECIFIED]Onset: 02-90-4110LswuaizrXoaof liver diseases (1 source)Fatty (change of) liver, not elsewhere classified; Translations: [FATTY CHANGE LIVER NEC]Onset: 00-25-1041EmfikguOrxkj male genital disorders (1 source)Male erectile dysfunction, unspecified; Translations: [MALE ERECTILE DYSFUNCTION UNS]Onset: 42-18-8434SrrcumvXxxsw nutritional; endocrine; and metabolic disorders (3 sources)Body mass index 30+ - enkxhnv21-29-4213DgfedpoUtjnx upper respiratory infections (4 sources)Acute sinusitis, unspecified; Translations: [ACUTE SINUSITIS UNSPECIFIED]Onset: 67-44-0942WahontnjKazjssjj codes; unclassified (3 sources)Cxvmbdhq01-04-4914GnmgqdzfLkaey infection (1 source)COVID-19; Translations: [COVID-19]Onset: 11-01-2022 Past or Other Problems Problem ClassificationProblemDateDocumented DateEpisodic/ChronicDiabetes mellitus without complication (1 source)Other abnormal glucose; Translations: [OTHER ABNORMAL GLUCOSE]Onset: 23-24-0693PhldkqabUjtqr screening for suspected conditions (not mental disorders or infectious disease) (2 sources)Encounter for screening for malignant neoplasm of prostate; Translations: [Encounter for screening for malignant neoplasm of rectum]Onset: 23-45-6273Mnuzfwdb Results Test NameValueInterpretationReference RangeFacilityCBC AUTO DIFFon 12-27-2022 BASO #0.1 103/ulNormal0.0-0.1The [facility] Hospitalment on above:Performed By: #### CBC #### [facility] [address] [address] [address] April WoodsBasophils/100 WBC (Bld)0.8 %Normal0.2-2.0The [facility] Comment on above:Performed By: #### CBC #### [facility] [address] [address] [address] April Olivas #0.1 103/ulNormal0.0-0.7The [facility] CenterComment on above: Performed By: #### CBC #### [facility] [address] [place] [address] Dr. April Roseosinophils/100 WBC (Bld)0.6 %Critically low0.9-7.0The [facility] CenterComment on above:Performed By: #### CBC #### [facility] [address] [address] [address] April Roserythrocyte distribution width (RBC) [Ratio]14.4 %Acbefy87.0-15.0 The [facility] Hospitalment on above:Performed By: #### CBC #### [facility] [address] [address] [address] April WoodsHematocrit (Bld) [Volume fraction]47.1 %Gbkmyk16.0-54.0The [facility] Hospitalment on above:Performed By: #### CBC #### [facility] [address] [address] [address] April WoodsHemoglobin (Bld) [Mass/Vol]15.8 g/rHAdyifc34.0-18.0The [facility] Hospitalment on above:Performed By: #### CBC #### [facility] [address] [place] [address] Dr. April Edgar #0.05 10e3/ulCritically high0.00-0.03The [facility] Comment on above:Performed By: #### CBC #### [facility] [address] [address] [address] April Edgar %0.4 %Normal0.0-0.5The [facility] CenterComment on above: Performed By: #### CBC #### [facility] [address] [address] [address] April Viera #1.1 103/ulCritically low1.2-3.8The [facility] Comment on above:Performed By: #### CBC #### [facility] [address] [address] [address] April Majorhocytes/100 WBC (Bld)8.3 %Critically low20.5-60.0[facility] HospitalComment on above:Performed By: #### CBC #### [facility] [address] [place] [address] Dr. April Benítez DIFF REQNONormalThe [facility] CenterComment on above: Performed By: #### CBC #### [facility] [address] [place] [address] Dr. April Gustafson (RBC) [Entitic mass]30.0 rdKgsydl30.9-34.0The [facility] CenterComment on above:Performed By: #### CBC #### [facility] [address] [place] [address] Dr. April Carrero (RBC) [Mass/Vol]33.5 g/mRLjuegy25.9-35.2[facility] HospitalComment on above:Performed By: #### CBC #### [facility] [address] [place] [address] Dr. April Carrero (RBC) [Entitic vol]89.5 nPLoqeqd88.0-94.0The [facility] CenterComment on above:Performed By: #### CBC #### [facility] [address] [place] [address] Dr. April Grove #0.8 103/ulNormal0.3-0.8The [facility] CenterComment on above:Performed By: #### CBC #### [facility] [address] [place] [address] Dr. April Espinoocytes/100 WBC (Bld)5.9 %Normal1.7-12.0[facility] Comment on above:Performed By: #### CBC #### [facility] [address] [place] [address] Dr. April Tee #11.1 103/ulCritically high1.4-6.5The [facility] Comment on above:Performed By: #### CBC #### [facility] [address] [place] [address] Dr. April Burgessutrophils/100 WBC (Bld)84.0 %Critically high43.0-75.0The [facility] CenterComment on above:Performed By: #### CBC #### [facility] [address] [place] [address] Dr. April Cazareslet mean volume (Bld) [Entitic vol]9.8 fLNormal9.5-13.5The [facility] CenterComment on above:Performed By: #### CBC #### [facility] [address] [place] [address] Dr. April WoodsPLT277 103/usUbaxfa253-334Pov [facility] CenterComment on above: Performed By: #### CBC #### [facility] [address] [place] [address] Dr. April WoodsRBC5.26 106/ulNormal4.70-6.10The [facility] CenterComment on above:Performed By: #### CBC #### [facility] [address] [place] [address] Dr. April WoodsWBC13.2 103/ulCritically high4.0-11.0The [facility] CenterComment on above:Performed By: #### CBC #### [facility] [address] [place] [address] Dr. April WoodsCT ABD/PELV W CONon 77-31-7399EX ABD/PELV W CONEXAM: CT ABD/PELV W CON [...] Electronically authenticated by: BARRINGTON HENDERSON Date: 2022-12-27 15:47[facility] HospitalLIPASEon 26-85-2690Mmmenv [Catalytic activity/Vol]461.0 U/L Critically high73.0-393.0The [facility] CenterComment on above:Performed By: #### CMP, LIPA #### [facility] [address] [place] [address] Dr. April De Leon 14(COMP METB)on 91-33-0982Upaznmu [Mass/Vol]4.1 g/dLNormal 3.4-5.0The [facility] CenterComment on above:Performed By: #### CMP, LIPA #### [facility] [address] [place] [address] Dr. April WoodsAlbumin/Globulin [Mass ratio]1.1 {ratio}NormalThe [facility] Hospitalment on above:Performed By: #### CMP, LIPA #### [facility] [address] [address] [address] April BlandP [Catalytic activity/Vol]88 U/RJugosz94-810Hex [facility] CenterComment on above:Performed By: #### CMP, LIPA #### [facility] [address] [address] [address] April BlandT [Catalytic activity/Vol]36 U/PZzkjir08-95Ojj [facility] CenterComment on above:Performed By: #### CMP, LIPA #### [facility] [address] [address] [address] April Portilloon gap [Moles/Vol]13.8 mmol/LNormalThe [facility] Comment on above:Performed By: #### CMP, LIPA #### [facility] [address] [place] [address] Dr. April WoodsAST [Catalytic activity/Vol]18 U/KJfvlnd44-28Vez [facility] CenterComment on above:Performed By: #### CMP, LIPA #### [facility] [address] [place] [address] Dr. April WoodsBilirubin [Mass/Vol]0.4 mg/dLNormal0.2-1.0[facility] Comment on above:Performed By: #### CMP, LIPA #### [facility] [address] [place] [address] Dr. April WoodsCalcium [Mass/Vol]8.8 mg/dLNormal8.5-10.1[facility] Comment on above:Performed By: #### CMP, LIPA #### [facility] [address] [place] [address] Dr. April WoodsChloride [Moles/Vol]103 mmol/DUlazkq96-829ElfSamaritan Hospital Comment on above:Performed By: #### CMP, LIPA #### [facility] [address] [place] [address] Dr. April WoodsCO2 [Moles/Vol]26.6 mmol/TXxdbtk38.0-32.0The [facility] Comment on above:Performed By: #### CMP, LIPA #### [facility] [address] [address] [address] April WoodsCreatinine [Mass/Vol]0.84 mg/dLNormal0.70-1.30The [facility] on above:Performed By: #### CMP, LIPA #### [facility] [address] [address] [address] Chen ChangEGFR-AF CROATIAN>60Normal>=60The [facility] CenterComment on above:Performed By: #### CMP, LIPA #### [facility] [address] [address] [address] April RoseGFR-NON AF CROATIAN>60Normal>=60The [facility] CenterComment on above:Performed By: #### CMP, LIPA #### [facility] [address] [address] [address] April WoodsGlobulin (S) [Mass/Vol]3.7 g/dLNormalThe [facility] CenterComment on above:Performed By: #### CMP, LIPA #### [facility] [address] [address] [address] April WoodsGlucose [Mass/Vol]175 mg/dLCritically lbfx69-270Ccp [facility] Hospitalment on above:Performed By: #### CMP, LIPA #### [facility] [address] [address] [address] April WoodsPotassium [Moles/Vol]4.4 mmol/LNormal3.5-5.1The [facility] Comment on above:Performed By: #### CMP, LIPA #### [facility] [address] [address] [address] April WoodsProtein [Mass/Vol]7.8 g/dLNormal6.4-8.2The [facility] Comment on above:Performed By: #### CMP, LIPA #### [facility] [address] [address] [address] April WoodsSodium [Moles/Vol]139 mmol/MImkuro697-513Njv [facility] Comment on above:Performed By: #### CMP, LIPA #### [facility] [address] [address] [address] April Valencia nitrogen [Mass/Vol]24.0 mg/dLCritically high7.0-18.0The [facility] CenterComment on above:Performed By: #### CMP, LIPA #### [facility] [address], [place] [address] Dr. April WoodsUrea nitrogen/Creatinine [Mass ratio]28.6 mg/mgNormalThe [facility] CenterComment on above:Performed By: #### CMP, LIPA #### [facility] [address] [address] [address] April WoodsPathology Noteon 55-07-7575Ihwlpxlzw Note [id number]#[id number]:127[facility] HospitalAmbulatory Visit Summaryon 30-67-3603Hguyqznydj Visit Summary MARIANA MCCURDY :1950 Visit Date:12/11/2022 [...] of uncertain behavior of skin of face [facility] Surgery Office/Clinic Noteon 97-26-0967Gqvfhzk Surgery Office/Clinic NoteChief Complaint follow up in-office [...] 12/21/2020 Recorded SARS-CoV-2 (COVID-19) mRNA-1273 vaccine 11/24/2020 RecordedDayton Children's HospitalComment on above:Result Comment: Electronically Signed By: GERALD CANELA, Eric Btuler\Date and Time Signed: 12/11/22 15:30 EDTFacesheeton 12-06-2022 [id number]#1.00CD:127[facility] HospitalGeneral Surgery Office/Clinic Noteon 20-77-0912Emoyobk Surgery Office/Clinic NoteChief Complaint in-office excisional biopsy [...] nylon sutures, ebl < 3 ml; tolerated well.[facility] HospitalComment on above:Result Comment: Electronically Signed By: GERALD CANELA, Eric Mcfadden\.br\Date and Time Signed: 12/06/22 16:23 ESTAmbulatory Visit Summaryon 62-66-9759Qxqbqpbpvt Visit Summary MARIANA MCCURDY :1950 Visit Date:12/04/2022 [...] Eric SOLIS MD Where: General Surgery Gerald/Said [facility] Ambulatory Visit Summaryon 48-03-7558Rpiomlsjzy Visit Summary MARIANA MCCURDY :1950 Visit Date:11/16/2022 [...] With: Eric SOLIS MD Where: General Surgery [facility] Physician Referralon 85-83-2625Qutnulcjv Referral [id number]#[id number]:127[facility] HospitalCovid-19 PCR (CVDTB)on 58-52-7506DWQP-CoV-2 (COVID-19) RNA IRIS+probe Ql (Unsp spec)DetectedAbnormalNOT DETECTEDThe [facility] on above: Result Comment: This test is not yet approved or cleared by the [place] FDA. When there are no FDA-approved or cleared tests available, and other criteria are met, FDA can make tests available under an emergency access mechanism called an Emergency Use Authorization (EUA). The EUA for this test is supported by the [place] of Health and Human Service's declaration that [...] mayno longer be used).Performed By: #### CVDTBH ####[facility] [address] [address]. April WoodsINFLUENZA A AND B AGon 60-97-8517MLYDTYBUDAJWY [facility] Health SystemComment on above:Result Comment: Negative for Flu A protein angiten. Infection due to Flu A cannot be ruled out. FluA angiten in the sample may be below the detection limit of the test.Performed By: #### INFLUAB ####[facility] [address] [place], [place] [address]Dr. April WoodsINFLUBNEGHSEE Memorial Health SystemComascension [place] on above:Result Comment: Negative for Flu B protein antigen. Infection due to Flu B cannot be ruled out. FluB antigen in the sample may be below the detection limit of the test.Performed By: #### INFLUAB ####[facility] [address] [place], [place] [address]Dr. April JohnstonNZA A AGNegativeNormalNEGATIVE SEE COMMENTThe [facility] Comment on above:Performed By: #### INFLUAB ####[facility] [address] [place], [place] [address]Dr. April WoodsINFLUENZA B AGNegativeNormal NEGATIVE SEE COMMENTThe [facility] CenterComment on above:Performed By: #### INFLUAB ####[facility] [address] [place], [place] [address]Dr. April WoodsINSULINon 82-91-1071Qedfjxw94.0 uIU/mLNormal2.6-24.9The [facility] CenterComment on above:Performed By: #### INSULIN #### [facility] [address] [place] [address] Dr. April Tello AUTO DIFFon 65-15-1670JCGU #0.1 103/ulNormal0.0-0.1The [facility] CenterComment on above:Performed By: #### CBC #### [facility] [address] [address] [address] April WoodsBasophils/100 WBC (Bld)1.4 %Normal0.2-2.0The [facility] Comment on above:Performed By: #### CBC #### [facility] [address] [address] [address] April Olivas #0.3 103/ulNormal0.0-0.7The [facility] CenterComment on above: Performed By: #### CBC #### [facility] [address] [address] [address] April Roseosinophils/100 WBC (Bld)3.8 %Normal0.9-7.0The [facility] Comment on above:Performed By: #### CBC #### [facility] [address] [place] [address] Dr. April Roserythrocyte distribution width (RBC) [Ratio]13.6 %Fjjgbm35.0-15.0 The [facility] CenterComment on above:Performed By: #### CBC #### [facility] [address] [place] [address] Dr. April WoodsHematocrit (Bld) [Volume fraction]43.4 %Kgowmt15.0-54.0The [facility] CenterComment on above:Performed By: #### CBC #### [facility] [address] [place] [address] Dr. April WoodsHemoglobin (Bld) [Mass/Vol]14.7 g/pKHvwiuk27.0-18.0The [facility] CenterComment on above:Performed By: #### CBC #### [facility] [address] [place] [address] Dr. April Edgar #0.02 10e3/ulNormal0.00-0.03The [facility] CenterComment on above:Performed By: #### CBC #### [facility] [address] [place] [address] Dr. April Edgar %0.3 %Normal0.0-0.5The [facility] CenterComment on above: Performed By: #### CBC #### [facility] [address] [address] [address] April Viera #2.3 103/ulNormal1.2-3.8The [facility] CenterComment on above:Performed By: #### CBC #### [facility] [address] [address] [address] April Majorhocytes/100 WBC (Bld)34.3 %Pcgsij76.5-60.0The [facility] CenterComment on above:Performed By: #### CBC #### [facility] [address] [place] [address] Dr. April Benítez DIFF REQNONormalThe [facility] CenterComment on above: Performed By: #### CBC #### [facility] [address] [place] [address] Dr. April Gustafson (RBC) [Entitic mass]29.9 hwBqgpxu12.9-34.0The [facility] Hospitalment on above:Performed By: #### CBC #### [facility] [address] [place] [address] Dr. April Carrero (RBC) [Mass/Vol]33.9 g/dUYpryri83.9-35.2The [facility] on above:Performed By: #### CBC #### [facility] [address] [place] [address] Dr. April Carrero (RBC) [Entitic vol]88.4 cJWbpqrg74.0-94.0The [facility] Hospitalment on above:Performed By: #### CBC #### [facility] [address] [place] [address] Dr. April Grove #0.6 103/ulNormal0.3-0.8The [facility] on above:Performed By: #### CBC #### [facility] [address] [address] [address] April Espinoocytes/100 WBC (Bld)9.1 %Normal1.7-12.0The [facility] Comment on above:Performed By: #### CBC #### [facility] [address] [address] [address] April Tee #3.4 103/ulNormal1.4-6.5The [facility] CenterComment on above:Performed By: #### CBC #### [facility] [address] [address] [address] April Burgessutrophils/100 WBC (Bld)51.1 %Pulsoj36.0-75.0The [facility] CenterComment on above:Performed By: #### CBC #### [facility] [address] [place] [address] Dr. April Bledsoe mean volume (Bld) [Entitic vol]9.3 fLCritically low 9.5-13.5The [facility] CenterComment on above:Performed By: #### CBC #### [facility] [address] [place] [address] Dr. April WoodsPLT270 103/mbDvoqvo577-435Wrl [facility] CenterComment on above: Performed By: #### CBC #### [facility] [address] [place] [address] Dr. April WoodsRBC4.91 106/ulNormal4.70-6.10The [facility] [facility] CenterComment on above:Performed By: #### CBC #### [facility] [address] [place] [address] Dr. April WoodsWBC6.6 103/ulNormal4.0-11.0The [facility] CenterComment on above: Performed By: #### CBC #### [facility] [address] [place] [address] Dr. April WoodsGLYCOHEMOGLOBIN A1Con 13-87-0397ZFA RECOMMENDATIONSEE BELOWNormal Samaritan HospitalComment on above:Result Comment: ADA RECOMMENDED LIMIT 4.0 - 6.0 ADA THERAPEUTIC TARGET < 7.0 ACTION SUGGESTED > 7.0Performed By: #### A1C #### [facility] [address] [place], [place] [address] Dr. April WoodsGlucose [Mass/Vol]134 mg/dLNoCleveland Clinic Akron GeneralComment on above:Performed By: #### A1C #### [facility] [address] [place] [address] Dr. April WoodsHbA1c (Bld) [Mass fraction]6.3 %Critically high4.5-6.2The [facility] CenterComment on above:Performed By: #### A1C #### [facility] [address] [place] [address] Dr. April RosadoID PROFILEon 11-88-2276FBDK-HDL RATIO NORMSEE [facility] SystemComment on above:Result Comment: 3.3 - 4.4 LOW RISK 4.4 - 7.1 AVERAGE RISK 7.1 - 11.0 MODERATE RISK >11.0 HIGH RISKPerformed By: #### CMP, LIPID, URIC #### [facility] [address] [place] [address] Dr. April Baezesterol [Mass/Vol]167 mg/dLNormal<=200The [facility] Comment on above:Performed By: #### CMP, LIPID, URIC #### [facility] [address] [place] [address] Dr. April Baezesterol in HDL [Mass/Vol]36 mg/dLCritically vwc47-79Mrg [facility] CenterComment on above:Performed By: #### CMP, LIPID, URIC #### [facility] [address] [place] [address] Dr. April Baezesterol in LDL [Mass/Vol]97.0 mg/dLAultman Orrville HospitalComment on above:Performed By: #### CMP, LIPID, URIC #### [facility] [address] [place] [address] Dr. April Murrieta.total/Cholesterol in HDL [Mass ratio]4.6 {ratio} NormalThe [facility] CenterComment on above:Performed By: #### CMP, LIPID, URIC #### [facility] [address] [place] [address] Dr. April Craig NORMAL> or = 60 mg/dl - LOW CARDIOVASCULAR RISK <40 mg/dl - HIGH CARDIOVASCULAR RISKAultman Orrville HospitalComascension [place] on above:Performed By: #### CMP, LIPID, URIC #### [facility] [address] [place] [address] Dr. April Ocampo CALC NORMALSEE BELOWAultman Orrville HospitalComascension [place]omb on above:Result Comment: <100 mg/dl OPTIMAL 100 - 129 mg/dl NEAR OR ABOVE OPTIMAL 130 - 159 mg/dl BORDERLINE HIGH 160 - 189 mg/dl HIGH >190 mg/dl VERY HIGH Performed By: #### CMP, LIPID, URIC #### [facility] [address] [place] [address] Dr. April WoodsTriglyceride [Mass/Vol]170 mg/dLCritically high<=150The [facility] on above:Performed By: #### CMP, LIPID, URIC #### [facility] [address] [place] [address] Dr. April BrooksLDL CALC34.0 mg/dLNoCleveland Clinic Akron GeneralComascension [place]omb on above: Performed By: #### CMP, LIPID, URIC #### [facility] [address] [place] [address] Dr. April De Leon 14(COMP METB)on 64-54-1333Xvbvlew [Mass/Vol]3.7 g/dLNormal 3.4-5.0[facility] on above:Performed By: #### CMP, LIPID, URIC #### [facility] [address] [place] [address] Dr. April WoodsAlbumin/Globulin [Mass ratio]0.9 {ratio}NormalThe [facility] on above:Performed By: #### CMP, LIPID, URIC #### [facility] [address] [place] [address] Dr. April Honeycutt [Catalytic activity/Vol]80 U/SBndhxf33-789Pvz [facility] on above:Performed By: #### CMP, LIPID, URIC #### [facility] [address] [place] [address] Dr. April BlandT [Catalytic activity/Vol]41 U/PThrixz59-27Tra [facility] CenterComment on above:Performed By: #### CMP, LIPID, URIC #### [facility] [address] [address] [address] April WoodsAnion gap [Moles/Vol]8.7 mmol/LNormalThe [facility] CenterComment on above:Performed By: #### CMP, LIPID, URIC #### [facility] [address] [address] [address] April WoodsAST [Catalytic activity/Vol]19 U/FKugjhw37-26Yxi [facility] CenterComment on above:Performed By: #### CMP, LIPID, URIC #### [facility] [address] [place] [address] Dr. April WoodsBilirubin [Mass/Vol]0.4 mg/dLNormal0.2-1.0The [facility] Comment on above:Performed By: #### CMP, LIPID, URIC #### [facility] [address] [place] [address] Dr. April WoodsCalcium [Mass/Vol]9.6 mg/dLNormal8.5-10.1The [facility] Comment on above:Performed By: #### CMP, LIPID, URIC #### [facility] [address] [place] [address] Dr. April WoodsChloride [Moles/Vol]101 mmol/AQkrudu92-704Qpn [facility] Comment on above:Performed By: #### CMP, LIPID, URIC #### [facility] [address] [place] [address] Dr. April WoodsCO2 [Moles/Vol]28.7 mmol/HNhbngn42.0-32.0The [facility] Comment on above:Performed By: #### CMP, LIPID, URIC #### [facility] [address] [place] [address] Dr. April WoodsCreatinine [Mass/Vol]0.95 mg/dLNormal0.70-1.30The [facility] CenterComment on above:Performed By: #### CMP, LIPID, URIC #### [facility] [address] [address] [address] April RoseGFR-AF CROATIAN>60Normal>=60The [facility] CenterComment on above:Performed By: #### CMP, LIPID, URIC #### [facility] [address] [address] [address] April RoseGFR-NON AF CROATIAN>60Normal>=60The [facility] CenterComment on above:Performed By: #### CMP, LIPID, URIC #### [facility] [address] [address] [address] April WoodsGlobulin (S) [Mass/Vol]4.1 g/dLNormalThe [facility] CenterComment on above:Performed By: #### CMP, LIPID, URIC #### [facility] [address] [place] [address] Dr. April WoodsGlucose [Mass/Vol]144 mg/dLCritically dgkc51-564Fmf [facility] CenterComment on above:Performed By: #### CMP, LIPID, URIC #### [facility] [address] [address] [address] April WoodsPotassium [Moles/Vol]4.4 mmol/LNormal3.5-5.1The [facility] Comment on above:Performed By: #### CMP, LIPID, URIC #### [facility] [address] [address] [address] April WoodsProtein [Mass/Vol]7.8 g/dLNormal6.4-8.2The [facility] Comment on above:Performed By: #### CMP, LIPID, URIC #### [facility] [address] [address] [address] April WoodsSodium [Moles/Vol]134 mmol/LCritically qbz311-696Cka [facility] CenterComment on above:Performed By: #### CMP, LIPID, URIC #### [facility] [address] [address] [address] April WoodsUrea nitrogen [Mass/Vol]21.0 mg/dLCritically high7.0-18.0The [facility] CenterComment on above:Performed By: #### CMP, LIPID, URIC #### [facility] [address] [address] [address] April WoodsUrea nitrogen/Creatinine [Mass ratio]22.1 mg/mgNormalThe [facility] CenterComment on above:Performed By: #### CMP, LIPID, URIC #### [facility] [address] [address] [address] April WoodsURIC ACID SERUMon 17-23-7822Ygvuc [Mass/Vol]4.6 mg/dLNormal 3.5-7.2The [facility] CenterComment on above:Performed By: #### CMP, LIPID, URIC #### [facility] [address] [address] [address] April Woods Vital Signs Date TimeVital SignValuePerforming MgtpcmtgdQvplygjg19-46-0928 08:49-0500Blood Pressure LocationMichael NILL [phone]-CnkiaW[facility]oster [facility] 11-16-2022 08:49-0500Diastolic blood kzbppnon85 mm[Hg]Eric NILL [phone]-XaupnW[facility]oster [facility] Hospital 11-16-2022 08:49-0500Heart rate84 /minMichael NILL [phone]-ZphhnW[facility]oster [facility] Hospital 11-16-2022 08:49-0500Respiratory rate16 /minMichael NILL [phone]-RbdduWooster Community Hospital 11-16-2022 08:49-0500Systolic blood dvueaiho957 mm[Hg]Eric NILL [phone]-CzzdjWooster Community Hospital Encounters Encounter DateEncounter TypeCare ProviderFacilityStart: 12-27-2022 End: 31-77-8916qvafupwrlxJO FERNIE GARZA .Facility:V2Kjtsd: 12-11-2022 End: 82-47-6470luctifuifeAqwsgnm R NILLFacility: tart: 12-11-2022 End: 70-90-5052Qwscbub encounter procedureMichael R NILL General Surgery Nill/Said [place] Start: 12-04-2022 End: 02-71-5008kfhkmxafobVqcitjx R NILLFacility: tart: 12-04-2022 End: 49-56-6611Wdpkzdt encounter procedureMichael R NILL General Surgery Nill/Said Wing Start: 11-16-2022 End: 22-21-7087xfohxwbuojEyrytmw R NILLFacility: kStart: 11-16-2022 End: 25-19-7155Oeihhki encounter procedureMichael R NILL [phone]-AjkgdBlanchard [facility] [place] Start: 98-16-6420dclhoyqaghGeogwax R NILLFacility:[facility] HospitalkStart: 53-29-1490svbakafiagWlryexw NILLFacility:[facility] Systemcharlietart: 10-31-2022 End: 62-70-5549ingyorwmqnRN FERNIE GARZA .Facility:C3Dzryt: 08-04-2022 End: 21-26-0184mamqdzktacBS DOUGLAS HOY .Facility:H1 Procedures DateProcedureProcedure DetailPerforming ClinicianStart: 80-20-2776QUT screening DR FERNIE GARZA .Comment on above:Performed By: #### PSASC ####[facility] [address] [place], [place] [address]DrJannet WoodsRepair of left inguinal herniaMichael NILL Immunizations Immunization DateImmunizationNotesCare IffbvcmuAsmckkkc57-76-9373udcksdzjn virus vaccine, unspecified formulationMichael NILL General Surgery Gymedrgg80-25-1255DONT-UhV-4 (COVID-19) mRNA-1273 vaccineMichael NILL [facility] WingComment on above:Result Comment: 2022-11-09: XUT1038-28-9255XQRQ-DzK-9 (COVID-19) mRNA-1273 vaccine Eric NILL General Surgery Oyitaonm35-86-3237ZZWW-QrZ-9 (COVID-19) mRNA-1273 vaccineMichael NILL [facility] Payers DatePayer CategoryPayerPolicy [id number] 1958Unknown [id number] [id number] Social History DateTypeDetailFacilityStart: 54-41-8261Tipejhm smoking statusNever smoked tobacco (finding)[facility] [place] smoking statusNeverBlanchard Valley Health System General Surgery [place]walkSex Assigned At BirthMaleFProMedica [facility] Functional Status SgylVvefzayklxPudjpnBkiqapxz70-28-7315Aqigpewcvt StatusN/AFAdena Health System General Surgery [place] Clinical Note 11-16-2022 Note Date & LtniAmtsMfpkjytm46-32-5545 NoteChief Complaint consultation for skin lesion HPI [...] 12/21/2020 Recorded SARS-CoV-2 (COVID-19) mRNA-1273 vaccine 11/24/2020 RecordedPromedica Toledo HospitalComment on above:Result Comment: Electronically Signed By: Eric SOLIS MD\.br\Date and Time Signed: 11/16/22 09:31 EST Evaluation + Plan note Note Date & TypeNoteFacilityEvaluation + Plan note Future Appointments Appointment Date:12/04/2022 01:40:00 PM Scheduled Provider:Eric SOLIS MD Location:[facility] Appointment Type: Procedure 30 [facility] Evaluation + Plan note Note Date & TypeNoteFacilityEvaluation + Plan note Future Appointments Appointment Date:12/11/2022 02:00:00 PM Scheduled Provider:Eric SOLIS MD Location:[facility] Appointment Type: Established 15 [facility] Hospital course Narrative Note Date & TypeNoteFacilityHospital course Narrative No data available for this section [facility] Hospital Discharge instructions Note Date & TypeNoteFacilityHospital Discharge instructions No data available for this section [facility] Progress note Note Date & TypeNoteFacilityProgress note No data available for this section [facility] Summary Purpose Family History No Family History Records FoundNo Family History Records Found Advance Directives No Advanced Directives Records FoundNo Advanced Directives Records Found Additional Source Comments Patient Care team informatio n (unrecognized section and content) Personnel Name: Fernie Garza MD Address: Address: [address] [place] [address]- Personnel Name: Fernie Garza MD Address: Address: [address] [place] [address] Personnel Name: Fernie Garza MD Address: Address: [address] [place] [address]- (unrecognized sect ion and content) No Status Records FoundNo Status Records Found INFORMATION SOURCE (unrecogn ized section and content) DATE CREATED AUTHOR 12/14/2022 [facility] DATE CREATED AUTHOR AUTHOR'S ORGANIZ ATION 01/01/2023 [facility] FOR RECORDS PERTAINING TO PATIENTS WHO ARE [...] BE BASED ON THE PRIMARY CLINICAL RECORDS. [employer] [facility]. provides no warranty or guarantee of the accuracy or completeness of information in this document.
--- OUTSIDE RECORDS SUMMARY | 2025-09-24 19:22 | XMS_ITS | Patient Health Record ---
Author Organization [facility] in [place] Address [address] [place] [address] Care Team Providers Care Research Psychologist Name Role Phone Dante Garza Primary Care Provider Allergies Allergen (clinical drug ingredient) Drug/Non Drug Allergy documented on EMR Reaction Allergy Type Onset Date Status bees (uncoded)UnknownAllergyActive Results Component Value Reference Range Notes COVID-19, Flu A+B IH Reviewed date:07/13/2025 02:21:39 PM Interpretation: Performing Lab: Notes/Report: COVID neg FLU AnegFLU BnegControlposCOVID-19, Flu A+B IH (Not yet reviewed by provider) Interpretation: Performing Lab: Notes/Report: COVIDPOSITIVEFLU AnegFLU BnegControlpresentCREATININE Reviewed date:07/13/2025 02:21:39 PM Interpretation: Performing Lab: Notes/Report: [facility] ,Creatinine1.160.70-1.30 mg/dLEstimated GFR ( Maria Esther>60>=60 mL/min/1.73m 2Estimated GFR (Non- Belkys>60>=60 mL/min/1.73m 2Performing Lab:see noteML - [facility] LBGLYCOHEMOGLOBIN A1C Reviewed date:07/13/2025 02:21:39 PM Interpretation: Performing Lab: Notes/Report: [facility] ,Glycohemoglobin A1C8.84.5-6.2 % > 7.0 ACTION SUGGESTED ADA RECOMMENDED LIMIT 4.0 - 6.0 ADA THERAPEUTIC TARGET < 7.0 Estimated Average Uvlebby958Uvprcbeopy Lab:see noteML - [facility] LB MICROALB CREAT RATIO RANDOM Reviewed date:07/13/2025 02:21:39 PM Interpretation: Performing Lab: Notes/Report: [facility] ,Microalbumin Urine Random<1.3<=30.0 mg/dLCreatinine Urine Pffhjk00.8720.00- 300.00 mg/dLPerforming Lab:see noteML - [facility] LBCBC AUTO DIFF Reviewed date:08/12/2025 02:47:48 PM Interpretation: Performing Lab: Notes/Report: [facility] ,White Blood Count6.64.0-11.0 10 3/uLRed Blood Count5.034.70-6.10 10 6/uL Wbslmjdchd98.914.0-18.0 g/gWMagtzomhuw60.342.0-54.0 %Mean Corpuscular Tsudhm88.1 80.0-94.0 fLMean Corpuscular Fcvyistefi93.625.9-34.0 pgMean Corpuscular HGB Conc 33.629.9-35.2 g/dLRed Cell Distribution Width13.411.0-15.0 %Platelet Ihema467 150-450 10 3/uLMean Platelet Volume9.99.5-13.5 fLNeutrophils Percent Auto62.9 43.0-75.0 %Lymphocytes Percent Auto25.020.5-60.0 %Monocytes Percent Auto8.51.7- 12.0 %Eosinophils Percent Auto2.10.9-7.0 %Basophils Percent Auto1.20.2-2.0 % Immature Granulocytes Pct Auto0.30.0-0.5 %Neutrophils Absolute Auto4.11.4-6.5 10 3/uLLymphocytes Absolute Auto1.71.2-3.8 10 3/uLMonocytes Absolute Auto0.60.3-0.8 10 3/uLEosinophils Absolute Auto0.10.0-0.7 10 3/uLBasophils Absolute Auto0.10.0- 0.1 10 3/uLImmature Granulocytes Abs Auto0.020.00-0.03 10 3/uLPerforming Lab:see noteML - [facility] LBFREE T3 Reviewed date:08/12/2025 02:47:48 PM Interpretation: Performing Lab: Notes/Report: [facility] ,Free T32.502.18-3.98 pg/mLPerforming Lab:see note - [facility] LB GLYCOHEMOGLOBIN A1C Reviewed date:08/12/2025 02:47:48 PM Interpretation: Performing Lab: Notes/Report: [facility] ,Glycohemoglobin A1C8.64.5-6.2 % ADA THERAPEUTIC TARGET < 7.0 ACTION SUGGESTED ADA RECOMMENDED LIMIT 4.0 - 6.0 > 7.0 Estimated Average Lwgimkt376Kiabmewvzx Lab:see note - [facility] LB LIPID PROFILE Reviewed date:08/12/2025 02:47:48 PM Interpretation: Performing Lab: Notes/Report: [facility] ,Klpyvrdjykwpq013<=150 mg/tDYsfcuiarock724<=200 mg/dLHDL Rzuqtdvlqdq5539-77 mg/dL > or =60 mg/dl - LOW CARDIOVASCULAR RISK <40 mg/dl - HIGH CARDIOVASCULAR RISK LDL Cholesterol Fttziptjyy423.0 <100 mg/dl OPTIMAL 100-129 mg/dl NEAR OR ABOVE OPTIMAL 130-159 mg/dl BORDERLINE HIGH 160-189 mg/dl HIGH >190 mg/dl VERY HIGH VLDL QFQZJTQZLXX67.8Chol HDL Ratio5.2 7.1 - 11.0 MODERATE RISK 3.3 - 4.4 LOW RISK >11.0 HIGH RISK 4.4 - 7.1 AVERAGE RISK Performing [facility] LBPROF 14(COMP METB) Reviewed date:08/12/2025 02:47:48 PM Interpretation: Performing Lab: Notes/Report: [facility] ,Pnuskm170291-157 mmol/LPotassium4.23.5-5.1 mmol/ITcltxgtr04285-944 mmol/LCarbon Xbfpaeo30.121.0-32.0 mmol/LAnion Gap10.3Jzxodcc58650-614 mg/dLBlood Urea Hzrwxfdz90.07.0-18.0 mg/dLCreatinine1.070.70-1.30 mg/dLEstimated GFR ( Maria Esther>60>=60 mL/min/1.73m 2Estimated GFR (Non- Belkys>60>=60 mL/min/1.73m 2BUN Creatinine Ratio17.1Marpvgp0.08.5-10.1 mg/dLBilirubin Total0.30.2-1.0 mg/dL Aspartate Amino Ssrxjsuphkg000-97 U/LAlanine Ocmfgrdeximwjqzv1386-40 U/LAlkaline Hocicnbrqxa8404-866 U/LTotal Protein7.36.4-8.2 g/dLAlbumin Level3.53.4-5.0 g/dL Globulin3.8Albumin Globulin Ratio0.9Performing Lab:see note - [facility] LBPSA SCREENING Reviewed date:08/12/2025 02:47:48 PM Interpretation: Performing Lab: Notes/Report: [facility] ,Prostate Specific Antigen Scrn0.67<=4.00 ng/mLPerforming Lab:[facility] LBT4 Reviewed date:08/12/2025 02:47:48 PM Interpretation: Performing Lab: Notes/Report: [facility] ,T4 Thyroxine6.804.50-12.10 ug/dLPerforming Lab:see note - [facility] LBTSH Reviewed date:08/12/2025 02:47:48 PM Interpretation: Performing Lab: Notes/Report: [facility] ,Thyroid Stimulating Hormone2.2840.358-3.740 uIU/mLPerforming Lab:see note - [facility] LB Reason For Referral No Information Medications Medication SIG (Take, Route, Frequency, Duration) Notes Start Date End Date Status Azithromycin 250 MG 2 tabs today then 1 tab Oral ly daily; Duration: 5 days 5ActiveBlood Glucose Monitor System w/Device test blood sugar daily; Duration: 365 days insurance covers one touch verio ActiveOzempic (1 MG/DOSE) 4 MG/3ML1 mg Subcutaneous weekly; Duration: 28 days 5ActiveOneTouch Verio -USE ONE STRIP DAILY TO MONITOR GLUCOSE; Duration: 90ActivedexAMETHasone 6 MG1 tablet Orally daily; Duration: 5 days 5ActiveFarxiga 10 MGTAKE 1 TABLET BY MOUTH EVERY DAY; Duration: 90 days ActiveSildenafil Citrate 100 MGTAKE 1 TABLET BY MOUTH ONCE A DAY NEEDED; Duration: 30ActivePaxlovid (300/100) 20 x 150 MG & 10 x 100MG3 tablets Orally Twice a day; Duration: 5 days5ActiveColesevelam HCl 625 MGTAKE 2 TABLETS BY MOUTH ONCE A DAY WITH A MEAL; Duration: 90ActivePantoprazole Sodium 40 MGTAKE 1 TABLET BY MOUTH EVERY DAY IN THE EVENING; Duration: 30ActiveLancets 30G -as directedActiveKetoconazole 2 %1 application Externally Twice a day; Duration: ctiveAspirin 81 81 MG1 tablet Orally Once a dayActive metFORMIN HCl 500 MGTAKE 2 TABLETS BY MOUTH TWICE A DAY; Duration: 90Active Glimepiride 4 MGTAKE 2 TABLETS BY MOUTH EVERY DAY; Duration: 90ActiveFreeStyle Lite Test -USE TO TEST BLOOD SUGAR ONCE DAILY DX E11.9; Duration: 90Active Januvia 100 MGTAKE 1 TABLET BY MOUTH EVERY DAY; Duration: 90ActiveIrbesartan 300 MGTAKE 1 TABLET BY MOUTH EVERY DAY; Duration: 90Active Immunizations Vaccine Route Administration Date Status Comme nts Flu, Fluzone High-Dose (9066 2) 65 yrs and older, single-dose syringe (4223-7347) Unknown 07/15/2025 Administered PPD TestID Eczytnbxajn73/12/2023dministered Social History Tobacco Use: Social History Observation Description Date Details (start date - stop date) Never Smoker NA - NA Tobacco Use/Smoking Question Answer Notes Patient is a nonsmoker Alcohol Screen (Audit-C) Question Answer Notes Did you have a drink containing alcohol in the p ast year? No Oxcxmm7ZbwzlyxfevbgcdMphnjlzn Problems Problem Type SNOMED Code ICD Code Onset Dates Problem Status W/U Status Risk Notes Problem Gastro-esophageal re flux disease without esophagitis (482830693) Gastro-esophageal reflux disease without esophagitis (K21.9) ActiveconfirmedProblemHorseshoe retinal tear without detachment (106538942) Horseshoe tear of retina without detachment, unspecified eye (H33.319)Active confirmedProblemHypertension (77183343)Hypertension (I10)ActiveconfirmedProblem Insomnia (742741350)Insomnia (G47.00)ActiveconfirmedProblemHypertriglyceridemia (860801683)Hypertriglyceridemia (E78.1)ActiveconfirmedProblemAcute sinusitis (60600917)Acute sinusitis (J01.90)ActiveconfirmedProblemWell adult (025174550) Well adult (Z00.00)ActiveconfirmedProblemVitreous detachment (91053541)Vitreous detachment (H43.819)ActiveconfirmedProblemOverweight (989896369)Over weight (E66.3)ActiveconfirmedProblemErectile dysfunction (disorder) (642252610) Impotence (N52.9)ActiveconfirmedProblemNevus (7560199069)Nevus (D22.9)Active confirmedProblemVitreous hemorrhage (32664839)Vitreous hemorrhage (H43.10)Active confirmedProblemType II diabetes mellitus without complication (763482664) Diabetes mellitus type II, non insulin dependent (E11.9)ActiveconfirmedProblem Disease caused by Severe acute respiratory syndrome coronavirus 2 (disorder) (769608341)COVID-19 virus infection (U07.1)Activeconfirmed Vital Signs Temperature 98.4 degrees Fahrenheit 09/20/2025 Blood pressure autwymqak97 mm Hg09/20/20254152Znasox13 in09/20/2025lood pressure deslberx138 mm Hg09/20/20252856Eileiw231.8 lbs111/21/2024BMI37.13 kg/m209/20/2025 Encounters Encounter Location Date Provider Diagnosis [facility] [address] [place] [address] 08/12/2025 Dante Hoy Diabetes mellitus ty pe II, non insulin dependent E11.9 [facility] [address] [place] [address] 08/30/2025 Dante Hoy Hypertension I10 [facility] [address] [place] [address] 01/27/2025 Dante Hoy [facility] [place] [address] 05/27/2025Doug [facility]oyHypertension [facility]11C[facility]wt[facility] [place] [address]/18/2025Doug HoyHypertension [address] [address]/Doug Hoy [address] [address] 11/05/2024Doug HoyAcute non-recurrent sinusitis, unspecified location J01.90 and Nasal congestion R09.[address] [address]/04/2025Doug HoyHypertension I10 ; Diabetes mellitus type II, non insulin dependent E11.9 ; Gastro-esophageal reflux disease without esophagitis K21.9 and [address] E78[address] [address]/03/2025Doug HoyHypertension I10 ; Diabetes mellitus type II, non insulin dependent E11.9 ; Gastro-esophageal reflux disease without esophagitis K21.9 and Impotence N52.[address] [address]/02/2025Doug Hoy Insomnia G47.00 ; Hypertension I10 ; Diabetes mellitus type II, non insulin dependent E11.9 and Gastro-esophageal reflux disease without esophagitis K21.[address] [address] 09/20/2025Doug HoyBody aches R52 ; COVID-19 U07.1 ; Cough R05.9 ; Acute non- recurrent sinusitis, unspecified ilwdluekL26.90 and Nasal congestion R09.81 Assessments Encounter Date Diagnosis (ICD Code) Assessment Notes Treatment Notes Treatment Clinical Notes Section Notes 11/05/2024 Acute non-recurrent sinusitis, unspecified location (ICD-10 - J01.90) Rest and drink more liquids, especially water. You may use a humidifier or vaporizer to help keep the drainage moist. Kqqs-vra-lpavyei Nasal Saline may help the stuffy and runny nose. Use Ibuprofen and or Tylenol as needed for fever, chills, body aches or pain. Children 5 years old should not be given krex-xsa-bznazux cough and cold medications such as guaifenesin and dextromethorphan. If you're over age 5, you may try mbmq-rrt-wnmenji cold medications such as guaifenesin and dextromethorphan, or multi-symptom cold reliever such as Dayquil to help reduce the symptoms. Antibiotics have been pre scribed. You should take these until completed and follow the directions. Antibiotics can sometimescause upset stomach, and in rare cases, serious allergic reactions or serious gastrointestinal problems. If you start having severe abdominal pain, severe vomiting, or bloody diarrhea, you should be r eevaluated by your physician or urgent care immediately. Follow up with your Primary Care Provider or return to clinic if symptoms do not improve within 3-5 days02/04/2025Hypertension (ICD-10 - I10)decent gpcibjy4502/04/2025Diabetes mellitus type II, non insulin dependent (ICD-10 - E11.9)sugar too hig on 4 oral meds - need ldsjiio2605/06/2025Hypertension (ICD-10 - I10)05/06/2025Diabetes mellitus type II, non insulin dependent (ICD-10 - E11.9)08/05/2025Insomnia (ICD- 10 - G47.00)08/05/2025Hypertension (ICD-10 - I10)09/20/2025ody aches (ICD-10 - R52)09/20/2025OVID-19 (ICD-10 - U07.1)05/27/2025Hypertension (ICD-10 - I10) 06/17/2025Hypertension (ICD-10 - I10)08/12/2025Diabetes mellitus type II, non insulin dependent (ICD-10 - E11.9)08/30/2025Hypertension (ICD-10 - I10) 09/20/2025ough (ICD-10 - R05.9)08/05/2025Diabetes mellitus type II, non insulin dependent (ICD-10 - E11.9)05/06/2025Gastro-esophageal reflux disease without esophagitis (ICD-10 - K21.9)02/04/2025Gastro-esophageal reflux disease without esophagitis (ICD-10 - K21.9)stable on meds11/05/2024Nasal congestion (ICD-10 - R09.81)02/04/2025Hypertriglyceridemia (ICD-10 - E78.1)05/06/2025Impotence (ICD- 10 - N52.9)08/05/2025Gastro-esophageal reflux disease without esophagitis (ICD- 10 - K21.9)09/20/2025ute non-recurrent sinusitis, unspecified location (ICD-10 - J01.90)Rest and drink more liquids, especially water. You may use a humidifier or vaporizer to help keep the drainage moist. Frog-xmj-qsizxbs Nasal Saline may help the stuffy and runny nose. Use Ibuprofen and or Tylenol as needed for fever, chills, body aches or pain. Children 5 years old should not be given rcsz-sfe-fdmlspm cough and cold medications such as guaifenesin and dextromethorphan. If you're over age 5, you may try nvax-xvy-yzyurfr cold medications such as guaifenesin and dextromethorphan, or multi-symptom cold reliever such as Dayquil to help reduce the symptoms. Antibiotics have been pre scribed. You should take these until completed and follow the directions. Antibiotics can sometimescause upset stomach, and in rare cases, serious allergic reactions or serious gastrointestinal problems. If you start having severe abdominal pain, severe vomiting, or bloody diarrhea, you should be r eevaluated by your physician or urgent care immediately. Follow up with your Primary Care Provider or return to clinic if symptoms do not improve within 3-5 days09/20/2025Nasal congestion (ICD-10 - R09.81) Plan Of Treatment Pending Test Test Name Order Date CMP (COMPLETE METABOLIC PANEL) 4 CMP (COMPLETE METABOLIC PANEL) 3 HEMOGLOBIN A1C (GLYCO) 08/21/2024 HEMOGLOBIN A1C (GLYCO) 08/05/2025 LIPID PANEL (CHOL/TRIG/HDL/LDL) 08/21/20 24 LIPID PANEL (CHOL/TRIG/HDL/LDL) 08/05/20 25 CBC WITH DIFF (EXP 07/2025) 08/21/2024 PSA, PROSTATE-SPECIFIC ANTIGEN 3 CBC W/AUTO DIFF 08/05/2023 PSA, TOTAL 08/21/2024 COVID-19, Flu A+B IH 09/20/2025 STOOL OCCULT BLOOD 08/21/2024 STOOL OCCULT BLOOD 08/05/2025 GLYCOHEMOGLOBIN A1C 08/12/2025 THYROID PANEL (T4/TSH/FREE T3) 5 THYROID PANEL (T4/TSH/FREE T3) 4 THYROID PANEL (T4/TSH/FREE T3) 3 PSA, SCREENING 08/05/2025 CMP (COMP MET PONCE) w/eGFR CKD-EPI 2024 CBC WITH DIFF 08/05/2025 Next Appt Details Provider Name:Dante Garza, 08:30:00 AM, [address] [place], [address], Insurance Providers Payer Name Payer Address Payer Phone Subscriber Number Group Number Insured Name Patient Relationship to Insured Coverage Start Date Coverage End Date [facility] [facility] [address] [place] [id number] [phone] [id number] Shamir Springer - patient is the [place] [id number], RichardSelf - patient is the insured Medical [...]
[2025-09-24 19:31] LABS: Hematocrit 44.4 % (42.0-54.0); Hemoglobin 15.0 g/dL (14.0-18.0); Immature Granulocytes Abs Auto 0.15 10^3/uL (0.00-0.03); Immature Granulocytes Pct Auto 1.5 % (0.0-0.5); Lymphocytes Absolute Auto 1.0 10^3/uL (1.2-3.8); Mean Corpuscular HGB Conc 33.8 g/dL (29.9-35.2); Mean Corpuscular Hemoglobin 29.6 pg (25.9-34.0); Mean Corpuscular Volume 87.6 fL (80.0-94.0); Platelet Count 343 10^3/uL (150-450); Red Blood Count 5.07 10^6/uL (4.70-6.10); White Blood Count 10.1 10^3/uL (4.0-11.0)
--- NOTE | 2025-09-24 19:39 | PC.NURSE ---
Concerned regarding elevated FSBS results at home. Asmymptomatic, respirations even and non labored, no N & V.
[2025-09-24 19:45] VITALS: BP 135/72; PULSE 80; O2SAT 96
[2025-09-24 19:47] LABS: Alanine Aminotransferase 20 U/L (16-63); Albumin Globulin Ratio 0.8; Albumin Level 3.3 g/dL (3.4-5.0); Alkaline Phosphatase 86 U/L (46-116); Anion Gap 14.8; Aspartate Amino Transferase 9 U/L (15-37); Blood Urea Nitrogen 37.0 mg/dL (7.0-18.0); Calcium 9.2 mg/dL (8.5-10.1); Carbon Dioxide 24.5 mmol/L (21.0-32.0); Chloride 95 mmol/L (98-107); Estimated GFR (African America 60 (>=60 mL/min/1.73m^2); Estimated GFR (Non-African Ame 49 (>=60 mL/min/1.73m^2); Globulin 3.9 g/dL; Potassium 5.3 mmol/L (3.5-5.1); Sodium 129 mmol/L (136-145); Total Protein 7.2 g/dL (6.4-8.2)
[2025-09-24 19:50] LABS: Glucose 548 mg/dL (74-106)
[2025-09-24 20:00] LABS: Glucose Urine UA >=1000 mg/dL (NEGATIVE)
== END 2025-09-24 20:46 | disposition home or self-care (01) ==
PROVIDERS: Emergency Provider Emergency Medicine; PCP Family Medicine
DX: E11.65 Type 2 diabetes mellitus with hyperglycemia (principal); Z79.84 Long term (current) use of oral hypoglycemic drugs
CPT/HCPCS: 36415; 80053; 81003; 82948; 85025; 99284

== ENCOUNTER 2025-09-27 11:44 | Outpatient (RCR) | payer OTHER, SELFPAY ==
[2025-09-27 11:49] VITALS: BP 124/73; PULSE 89; TEMP 36.3; O2SAT 97
[2025-09-27] MEDS: 0.9 % SODIUM CHLORIDE 1,000 ML 999 ML IV ×2 (11:57→13:10)
[2025-09-27 12:03] LABS: Hematocrit 49.7 % (42.0-54.0); Hemoglobin 17.2 g/dL (14.0-18.0); Immature Granulocytes Abs Auto 0.33 10^3/uL (0.00-0.03); Immature Granulocytes Pct Auto 2.3 % (0.0-0.5); Lymphocytes Absolute Auto 2.9 10^3/uL (1.2-3.8); Mean Corpuscular HGB Conc 34.6 g/dL (29.9-35.2); Mean Corpuscular Hemoglobin 29.9 pg (25.9-34.0); Mean Corpuscular Volume 86.3 fL (80.0-94.0); Platelet Count 401 10^3/uL (150-450); Red Blood Count 5.76 10^6/uL (4.70-6.10); White Blood Count 14.1 10^3/uL (4.0-11.0)
[2025-09-27 12:41] LABS: Alanine Aminotransferase 21 U/L (16-63); Albumin Globulin Ratio 0.9; Albumin Level 3.1 g/dL (3.4-5.0); Alkaline Phosphatase 73 U/L (46-116); Anion Gap 13.7; Aspartate Amino Transferase 17 U/L (15-37); Blood Urea Nitrogen 40.0 mg/dL (7.0-18.0); Calcium 8.8 mg/dL (8.5-10.1); Carbon Dioxide 25.8 mmol/L (21.0-32.0); Chloride 98 mmol/L (98-107); Estimated GFR (African America >60 (>=60 mL/min/1.73m^2); Estimated GFR (Non-African Ame 52 (>=60 mL/min/1.73m^2); Globulin 3.5 g/dL; Glucose 251 mg/dL (74-106); Potassium 4.5 mmol/L (3.5-5.1); Sodium 133 mmol/L (136-145); Total Protein 6.6 g/dL (6.4-8.2)
== END 2025-09-29 23:59 | disposition home or self-care (01) ==
LOC: HEMC 11:44
PROVIDERS: PCP Family Medicine; Visit Provider Family Medicine
DX: U07.1 COVID-19 (principal); E86.0 Dehydration; I10 Essential (primary) hypertension; R53.83 Other fatigue
CPT/HCPCS: 36415; 80053; 85025; 96360; 96361